=== PATIENT | male | born 1960 | race Caucasian/White ===

== ENCOUNTER → 2017-02-11 | Outpatient (CLI) | payer OTHER ==
[~2017-02-11] MED LIST: CRS10 PO; FEXO180T PO; FLUT0.0529
[2017-02-11 13:54] LABS: ALT/SGPT 36 U/L (12-78); BLOOD UREA NITROGEN 20 mg/dl (7-18); BUN/CREATININE RATIO 22.1 (10-20); CARBON DIOXIDE 30 mmol/L (21-32); CHLORIDE 106 mmol/L (98-107); CREATININE 0.91 mg/dl (0.60-1.40); GLUCOSE 107 mg/dl (70-99); POTASSIUM 4.5 mmol/L (3.5-5.1); SODIUM 142 mmol/L (136-145)
[2017-02-11 13:58] LABS: ALB/GLOB RATIO 1.1 (0.9-2); ALKALINE PHOSPHATASE 44 U/L (45-117); AST/SGOT 14 U/L (15-37); CHOLESTEROL 185 mg/dl (0-200); CHOLESTEROL/HDL RATIO 3.4; HDL CHOLESTEROL 54 mg/dl; LDL CHOLESTEROL CALCULATED 117 mg/dl; TRIGLYCERIDES 71 mg/dl (0-150); VERY LOW DENSITY LIPOPROT CALC 14 mg/dl
[2017-02-11 13:59] LABS: ESTIMATED AVERAGE GLUCOSE 117 mg/dl; HA1C FLAG Normal (Normal)
== END | disposition home or self-care (01) ==
LOC: C.LABBC 10:07
PROVIDERS: ATTEND Family Medicine
DX: Z00.00 Encounter for general adult medical examination without abnormal findings (principal)

== ENCOUNTER → 2018-04-03 | Outpatient (CLI) | payer OTHER ==
[2018-04-03 14:37] LABS: ALBUMIN 3.7 gm/dl (3.4-5.0); ALKALINE PHOSPHATASE 44 U/L (45-117); ALT/SGPT 41 U/L (12-78); AST/SGOT 16 U/L (15-37); BLOOD UREA NITROGEN 18 mg/dl (7-18); CALCIUM 8.8 mg/dl (8.5-10.1); CARBON DIOXIDE 31 mmol/L (21-32); CHOLESTEROL 202 mg/dl (0-200); CREATININE 1.01 mg/dl (0.60-1.40); GLUCOSE 103 mg/dl (70-99); LDL CHOLESTEROL CALCULATED 124 mg/dl; POTASSIUM 4.7 mmol/L (3.5-5.1); SODIUM 137 mmol/L (136-145); TOTAL PROTEIN 7.4 gm/dl (6.4-8.2)
[2018-04-04 06:04] LABS: HEMOGLOBIN A1C 5.6 % (4.5-5.6)
== END | disposition home or self-care (01) ==
LOC: C.LABBC 10:19
PROVIDERS: ATTEND Nurse Practitioner Family
DX: E78.00 Pure hypercholesterolemia, unspecified (principal); R73.9 Hyperglycemia, unspecified

== ENCOUNTER 2023-04-01 10:54 | Inpatient (IN) ==
[2023-04-01] MEDS ORDERED: SODIUM CHLORIDE 0.9% 1000ML 1,000 ML IV ONE ×2 (11:25→13:55)
--- NOTE | 2023-04-01 11:49 | Emergency Department Note ---
Impression & Plan Acute pyelonephritis, Anemia, Weakness, Hypomagnesemia ED Provider Note NAME: ELLIOTT CANDELARIO AGE: 62 SEX: M : 1960 ARRIVES VIA: Walk-In INFORMANT: Patient, ED PROVIDER(S): Elliott Mchugh DO CHIEF COMPLAINT: Postoperative fever HPI: The patient is a 62-year-old male who presented to the emergency department at the request of his primary care physician for an evaluation of postoperative fever. The patient started having symptoms over the last few days. He was noted to have low-grade fever last night. He has been having generalized weakness. He feels as though he cannot do as much activity as he previously was able to. He was recently diagnosed with bladder cancer. He did have some chemotherapy prior to the surgery that he had 3 weeks ago to remove his bladder as well as his prostate. He was feeling well until the last few days. He denies having any chest pain. He does have some exertional dyspnea but he denies having any lower extremity swelling or pain. He has had no recent trauma. He denies having any rectal bleeding or hematuria. The blood in the collection bag has been clear. ROS: See above HPI for pertinent positives & negatives. A total of 10 systems reviewed and were otherwise negative. PAST MEDICAL HISTORY: See Below PAST SURGICAL HISTORY: See Below FAMILY HISTORY: See Below SOCIAL HISTORY: See Below HOME MEDICATIONS: See Below ALLERGIES: See Below VITALS: See Below PHYSICAL EXAMINATION: GENERAL: Patient is awake alert in no acute distress patient is resting co mfortably and showing no signs of anxiety EYES: The conjunctivae are clear. The pupils are round and reactive. EARS, NOSE, MOUTH AND THROAT: The nose is without any evidence of any deformity. Mucous membranes are dry. NECK: The neck is nontender and supple. RESPIRATORY: Normal respiratory effort is noted there is no evidence of wheezing rhonchi or rales CARDIOVASCULAR: Regular rate and rhythm noted there no murmurs rubs or gallops normal S1 normal S2. GASTROINTESTINAL: The abdomen is soft and mildly distended. There is diffuse tenderness to palpation but no guarding or rigidity. The urine bag is noted in the right lower quadrant. There are surgical sites with wound glue in place. There is no drainage erythema or dehiscence noted. MUSCULOSKELETAL/EXTREMITIES: There is no evidence of gross deformity full range of motion is noted in the hips and shoulders. SKIN: There is no obvious evidence of any rash. There are no petechiae, pallor or cyanosis noted. NEUROLOGIC: Patient is awake alert and oriented x3 MEDICAL DECISION MAKING: The patient is a 62-year-old male who presented to the emergency department for an evaluation of fever and weakness. The patient initially was hypotensive. The patient was treated with IV fluids and IV antibiotics in the emergency department for presumed infection. I discussed the patient's laboratory and radiographic studies with him. He was found to have signs of urinary tract infection on urinalysis but also on CT scan of the abdomen. Imaging appears to be consistent with pyelonephritis. The patient is status post bladder surgery for bladder cancer. There does not appear to be any specific postoperative fluid collection that would make me concerned for abscess. The patient was feeling much better on reevaluation. Given his findings I discussed his condition with the on-call [facility]. They have agreed to evaluate the patient in the emergency department for further management and disposition. Triage Nursing notes reviewed. Prior medical records reviewed Vital Signs: reviewed and remarkable for initial hypotension. Differential diagnosis: Infection, dehydration, metabolic abnormality, hypo/hyperglycemia, electrolyte disturbance, anemia, hypoxia, cardiac sources, intracerebral event, toxicologic, neurologic, as well as other pathologies. ER treatment provided: See below Diagnostics interpreted by me: ECG: EKG was obtained in the emergency department. My interpretation is normal sinus rhythm at 84 bpm. There is no ectopy. There is no acute ST segment abnormalities noted. This was compared to a tracing from October 17, 2022. No changes were noted. Cardiac Monitoring: An order was placed for continuous cardiac monitoring. The monitor shows a rate of 75 bpm with sinus rhythm. Laboratory studies: As stated above and show below. Imaging studies: See below. Radiographic imaging was reviewed by myself Consultation(s): I discussed this case with Adin Cline who is on for the [facility]. They will evaluate the patient in the emergency department. Past Med/Surg History Medical History Borderline blood pressure No meds Hypercholesterolemia Kidney stones Hx, passed without intervention Seasonal allergies Urothelial carcinoma of bladder Surgical History H/O transurethral resection of bladder tumor (TURBT) TURBT (Transurethral Resection of the Bladder Tumor) (medium)- Erlin Rg MD 2021 History of anesthesia problem ACL surgery - Slow to wake, required overnight stay- discharged next day without issue Shoulder surgery - he had no problems History of arthroscopy of left shoulder 2015 Hx of arthroscopic knee surgery right knee acl 1992 Hx of colonoscopy 2014? Port-A-Cath in place (12/04/22) Insertion Access Port Left Subclavian with Fluoroscopy(Left) - Francisco Basilio DO Family History Father Myocardial infarction Hypertension Heart disease Aunt Diabetes Other Cancer Denies family history of Colon cancer Ovarian cancer Prostate cancer Breast cancer Social History Smoking Status: Never smoker Tobacco Type: Cigars and Smokeless Tobacco (Dip or Chew) Second Hand Exposure: No; Do You Dip or Chew Tobacco: Yes (hx-quit); Hx Alcohol Use: Yes Alcohol type: beer Alcohol Intake Frequency: 4 or More x per/Week Alcohol Intake Frequency Comment: 2 per day Hx Substance Use: No Preferred Language: Divehi Communication Ability: Effective Visual Impairment: Limited Hearing Ability: Normal 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 Final Required: No Beliefs That Will Affect Care: None marital status: Current Living Situation: Spouse current occupational status: 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 How many Children do You have: 1 Feels Safe at Home: Yes Childhood Exposure to Second-Hand Smoke: No Diet: regular during the past year weight has: decreased > 10 lbs Dental Care, Regularly: Yes Physical Activity Frequency: 3-4 Times per Week Seatbelt Use: always Sunscreen Use: Yes Assistive Devices: None Allergies Allergies Allergy/AdvReac Type Severity Reaction Status Date / Time No Known Allergies Allergy Verified 01/16/23 13:28 Home Meds Home Medications Medication Instructions Recorded Confirmed rosuvastatin 20 mg tablet 20 mg PO QAM 10/23/22 03/20/23 fexofenadine-pseudoephedrine ER 1 tab PO QAM PRN Nasal Congestion 12/04/22 03/20/23 180 mg-240 mg tablet,ext.release 24 hr (Nicolle-D 24 Hour) apixaban 2.5 mg tablet 2.5 mg PO BID 03/20/23 03/20/23 docusate sodium 100 mg capsule 100 mg PO BID 03/20/23 03/20/23 losartan 25 mg tablet 25 mg PO DAILY 03/20/23 polyethylene glycol 3350 17 17 g PO DAILY 03/20/23 03/20/23 gram/dose oral powder (Miralax) tramadol 50 mg tablet 50 mg PO Q6H PRN 03/20/23 03/20/23 Previous Rx's Medication Instructions Recorded olanzapine 2.5 mg tablet 2.5 mg PO DAILY #30 tabs 01/01/23 ondansetron 8 mg disintegrating 8 mg PO DAILY PRN nausea and 01/01/23 tablet vomiting #60 tabs prochlorperazine maleate 5 mg 5 mg PO Q6H PRN nausea and 01/01/23 tablet vomiting #30 tabs hydrochlorothiazide 25 mg tablet 25 mg PO DAILY #90 tabs 03/05/23 Results & Data (ED) Vital Signs Vital Signs - 24 hr 04/01/23 11:09 04/01/23 12:54 04/01/23 12:54 Temperature 37.2 C Temperature Source Temporal Artery Scan Pulse Rate 104 H Pulse Rate [Apical] 76 Pulse Rhythm [Apical] Regular Respiratory Rate 18 18 Respiratory Effort / Characteristics Non-Labored Spontaneous Non-Labored Spontaneous Respiratory Depth Normal Normal Respiratory Pattern Regular Regular Blood Pressure 99/55 L Blood Pressure [Right Arm] 116/62 Blood Pressure Mean 69 Blood Pressure Mean [Right Arm] 80 Blood Pressure Position [Right Arm] Lying Pulse Oximetry 96 98 98 Oxygen Delivery Method Room Air Room Air Room Air Sepsis Recent Fever Within 48 Hours No Sepsis New/Unexplained Change in Mental Status N/A Sepsis Action Taken by Nursing No Action Required 04/01/23 12:30 04/01/23 13:29 Temperature 36.4 C Temperature Source Oral Pulse Rate 84 Pulse Rate [Apical] 75 Pulse Rhythm [Apical] Regular Respiratory Rate 18 Respiratory Effort / Characteristics Non-Labored Spontaneous Respiratory Depth Normal Respiratory Pattern Regular Blood Pressure Blood Pressure [Right Arm] 133/64 Blood Pressure Mean Blood Pressure Mean [Right Arm] 87 Blood Pressure Position [Right Arm] Lying Pulse Oximetry 99 Oxygen Delivery Method Room Air Sepsis Recent Fever Within 48 Hours Sepsis New/Unexplained Change in Mental Status Sepsis Action Taken by [facility] Medications Current Medication List: was personally reviewed by me Laboratory Data Attestation: I reviewed the patient's lab results. 04/01/23 12:09 04/01/23 12:09 Lab Results 04/01/23 04/01/23 04/01/23 Range/Units 12:09 12:09 12:09 WBC 9.58 (4.8-10.8) K/ul RBC 2.82 L (4.70-6.10) M/uL Hgb 8.7 L (14.0-18.0) g/dl POC Hgb (14.0-18.0) g/dl Hct 24.9 L (42.0-52.0) % POC Hct (42-52) % MCV 88.3 (80.0-100.0) fL MCH 30.9 (25.0-34.0) pg MCHC 34.9 (32.0-36.0) g/dL RDW Std Deviation 41.0 (36.4-46.3) fL RDW Coeff of Mara 12.6 (11.5-14.5) % Plt Count 137 (130-400) K/uL MPV 9.4 (9.4-12.4) fL Immature Gran % (Auto) 0.5 % Neut % (Auto) 81.6 % Lymph % (Auto) 10.1 % Caswell % (Auto) 5.7 % Eos % (Auto) 1.9 % Baso % (Auto) 0.2 % Neut # (Auto) 7.81 H (1.40-6.50) K/uL Lymph # (Auto) 0.97 L (1.2-3.4) K/uL Caswell # (Auto) 0.55 (0.11-0.59) K/uL Eos # (Auto) 0.18 (0-0.50) K/uL Baso # (Auto) 0.02 (0-0.2) K/uL Immature Gran # (Auto) 0.05 (0.01-0.20) K/uL PT (9.0-12.0) Seconds INR (0.9-1.1) APTT (21.0-31.0) Seconds PTT Ratio VBG pH (7.36-7.41) VBG pCO2 (38-50) mmHg VBG pO2 mmHg VBG HCO3 mmol/L VBG O2 Saturation % VBG Base Excess mEq/L POC Sodium (135-144) mmol/L Sodium 131 L (136-145) mmol/L POC Potassium (3.3-5.0) mmol/L Potassium 3.1 L (3.5-5.1) mmol/L POC Chloride (101-112) mmol/L Chloride 91 L (98-107) mmol/L Carbon Dioxide 33 H (21-32) mmol/L POC Total CO2 (24-31) mmol/L Anion Gap 7 (3-11) POC Anion Gap (16-25) mmol/L POC BUN (7-18) mg/dl BUN 26 H (6-23) mg/dl Creatinine 1.13 (0.6-1.4) mg/dl POC Creatinine (0.6-1.3) mg/dl Est Cr Clr Drug Dosing 62.5 ml/min Est GFR ( Amer) 79.7 ml/min Est GFR (Non-Af Amer) 68.8 ml/min BUN/Creatinine Ratio 23.0 H (10-20) Glucose 120 H (70-99(Fasting)) mg/dl POC Glucose (other) (70-99) mg/dl Lactate 0.9 (0.4-2.0) mmol/L Calcium 8.8 (8.6-10.3) mg/dl POC Ioniz Calcium Sariah (1.12-1.32) mmol/l Magnesium 1.5 L (1.7-2.4) mg/dl Total Bilirubin 0.2 (0.2-1.0) mg/dl Direct Bilirubin 0.1 (0-0.2) mg/dl AST 14 (13-39) U/L ALT 14 (7-52) U/L Alkaline Phosphatase 55 (34-104) U/L Troponin I High Sens 15.3 (0-20) pg/ml C-Reactive Protein 19.50 H (0-0.5) mg/dl Total Protein 6.1 (6.0-8.3) gm/dl Albumin 3.1 L (3.4-5.0) gm/dl Procalcitonin (0-0.5) ng/ml Urine Color Urine Appearance (Clear) Urine pH (4.5-7.5) Ur Specific [place] (1.000-1.030) Urine Protein (Negative) Urine Glucose (UA) (Negative) Urine Ketones (Negative) Urine Blood (Negative) Urine Nitrite (Negative) Urine Bilirubin (Negative) Urine Urobilinogen (Negative) Ur Leukocyte Esterase (Negative) Urine WBC (Auto) (0-5) /hpf Urine RBC (Auto) (0-4) /hpf U Hyaline Cast (Auto) (0-5) /lpf U Epithel Cells (Auto) (0-5) /lpf Urine Bacteria (Auto) (Negative) SARS-CoV-2 (PCR) (Negative) Influenza Type A (PCR) (Neg) Influenza Type B (PCR) (Neg) RSV (RT-PCR) (Neg) 04/01/23 04/01/23 04/01/23 Range/Units 12:09 12:09 12:09 WBC (4.8-10.8) K/ul RBC (4.70-6.10) M/uL Hgb (14.0-18.0) g/dl POC Hgb (14.0-18.0) g/dl Hct (42.0-52.0) % POC Hct (42-52) % MCV (80.0-100.0) fL MCH (25.0-34.0) pg MCHC (32.0-36.0) g/dL RDW Std Deviation (36.4-46.3) fL RDW Coeff of Mara (11.5-14.5) % Plt Count (130-400) K/uL MPV (9.4-12.4) fL Immature Gran % (Auto) % Neut % (Auto) % Lymph % (Auto) % Caswell % (Auto) % Eos % (Auto) % Baso % (Auto) % Neut # (Auto) (1.40-6.50) K/uL Lymph # (Auto) (1.2-3.4) K/uL Caswell # (Auto) (0.11-0.59) K/uL Eos # (Auto) (0-0.50) K/uL Baso # (Auto) (0-0.2) K/uL Immature Gran # (Auto) (0.01-0.20) K/uL PT 11.6 (9.0-12.0) Seconds INR 1.1 (0.9-1.1) APTT 30.5 (21.0-31.0) Seconds PTT Ratio 1.1 VBG pH 7.49 H (7.36-7.41) VBG pCO2 50 (38-50) mmHg VBG pO2 32 mmHg VBG HCO3 38 mmol/L VBG O2 Saturation < 60.0 % VBG Base Excess 12.7 mEq/L POC Sodium (135-144) mmol/L Sodium (136-145) mmol/L POC Potassium (3.3-5.0) mmol/L Potassium (3.5-5.1) mmol/L POC Chloride (101-112) mmol/L Chloride (98-107) mmol/L Carbon Dioxide (21-32) mmol/L POC Total CO2 (24-31) mmol/L Anion Gap (3-11) POC Anion Gap (16-25) mmol/L POC BUN (7-18) mg/dl BUN (6-23) mg/dl Creatinine (0.6-1.4) mg/dl POC Creatinine (0.6-1.3) mg/dl Est Cr Clr Drug Dosing ml/min Est GFR ( Amer) ml/min Est GFR (Non-Af Amer) ml/min BUN/Creatinine Ratio (10-20) Glucose (70-99(Fasting)) mg/dl POC Glucose (other) (70-99) mg/dl Lactate (0.4-2.0) mmol/L Calcium (8.6-10.3) mg/dl POC Ioniz Calcium Sariah (1.12-1.32) mmol/l Magnesium (1.7-2.4) mg/dl Total Bilirubin (0.2-1.0) mg/dl Direct Bilirubin (0-0.2) mg/dl AST (13-39) U/L ALT (7-52) U/L Alkaline Phosphatase (34-104) U/L Troponin I High Sens (0-20) pg/ml C-Reactive Protein (0-0.5) mg/dl Total Protein (6.0-8.3) gm/dl Albumin (3.4-5.0) gm/dl Procalcitonin 0.20 (0-0.5) ng/ml Urine Color Urine Appearance (Clear) Urine pH (4.5-7.5) Ur Specific [place] (1.000-1.030) Urine Protein (Negative) Urine Glucose (UA) (Negative) Urine Ketones (Negative) Urine Blood (Negative) Urine Nitrite (Negative) Urine Bilirubin (Negative) Urine Urobilinogen (Negative) Ur Leukocyte Esterase (Negative) Urine WBC (Auto) (0-5) /hpf Urine RBC (Auto) (0-4) /hpf U Hyaline Cast (Auto) (0-5) /lpf U Epithel Cells (Auto) (0-5) /lpf Urine Bacteria (Auto) (Negative) SARS-CoV-2 (PCR) (Negative) Influenza Type A (PCR) (Neg) Influenza Type B (PCR) (Neg) RSV (RT-PCR) (Neg) 04/01/23 04/01/23 04/01/23 Range/Units 12:18 12:20 12:50 WBC (4.8-10.8) K/ul RBC (4.70-6.10) M/uL Hgb (14.0-18.0) g/dl POC Hgb 8.2 L (14.0-18.0) g/dl Hct (42.0-52.0) % POC Hct 24 L (42-52) % MCV (80.0-100.0) fL MCH (25.0-34.0) pg MCHC (32.0-36.0) g/dL RDW Std Deviation (36.4-46.3) fL RDW Coeff of Mara (11.5-14.5) % Plt Count (130-400) K/uL MPV (9.4-12.4) fL Immature Gran % (Auto) % Neut % (Auto) % Lymph % (Auto) % Caswell % (Auto) % Eos % (Auto) % Baso % (Auto) % Neut # (Auto) (1.40-6.50) K/uL Lymph # (Auto) (1.2-3.4) K/uL Caswell # (Auto) (0.11-0.59) K/uL Eos # (Auto) (0-0.50) K/uL Baso # (Auto) (0-0.2) K/uL Immature Gran # (Auto) (0.01-0.20) K/uL PT (9.0-12.0) Seconds INR (0.9-1.1) APTT (21.0-31.0) Seconds PTT Ratio VBG pH (7.36-7.41) VBG pCO2 (38-50) mmHg VBG pO2 mmHg VBG HCO3 mmol/L VBG O2 Saturation % VBG Base Excess mEq/L POC Sodium 131 L (135-144) mmol/L Sodium (136-145) mmol/L POC Potassium 3.0 L (3.3-5.0) mmol/L Potassium (3.5-5.1) mmol/L POC Chloride 89 L (101-112) mmol/L Chloride (98-107) mmol/L Carbon Dioxide (21-32) mmol/L POC Total CO2 29 (24-31) mmol/L Anion Gap (3-11) POC Anion Gap 17.0 (16-25) mmol/L POC BUN 22 H (7-18) mg/dl BUN (6-23) mg/dl Creatinine (0.6-1.4) mg/dl POC Creatinine 1.3 (0.6-1.3) mg/dl Est Cr Clr Drug Dosing ml/min Est GFR ( Amer) ml/min Est GFR (Non-Af Amer) ml/min BUN/Creatinine Ratio (10-20) Glucose (70-99(Fasting)) mg/dl POC Glucose (other) 124 H (70-99) mg/dl Lactate (0.4-2.0) mmol/L Calcium (8.6-10.3) mg/dl POC Ioniz Calcium Sariah 1.17 (1.12-1.32) mmol/l Magnesium (1.7-2.4) mg/dl Total Bilirubin (0.2-1.0) mg/dl Direct Bilirubin (0-0.2) mg/dl AST (13-39) U/L ALT (7-52) U/L Alkaline Phosphatase (34-104) U/L Troponin I High Sens (0-20) pg/ml C-Reactive Protein (0-0.5) mg/dl Total Protein (6.0-8.3) gm/dl Albumin (3.4-5.0) gm/dl Procalcitonin (0-0.5) ng/ml Urine Color Yellow Urine Appearance Cloudy A (Clear) Urine pH 6.5 (4.5-7.5) Ur Specific [place] 1.018 (1.000-1.030) Urine Protein 2+ H (Negative) Urine Glucose (UA) Negative (Negative) Urine Ketones Negative (Negative) Urine Blood 3+ H (Negative) Urine Nitrite Positive A (Negative) Urine Bilirubin Negative (Negative) Urine Urobilinogen Negative (Negative) Ur Leukocyte Esterase 3+ H (Negative) Urine WBC (Auto) >30 H (0-5) /hpf Urine RBC (Auto) >30 H (0-4) /hpf U Hyaline Cast (Auto) 1-5 (0-5) /lpf U Epithel Cells (Auto) 10-20 H (0-5) /lpf Urine Bacteria (Auto) 4+ H (Negative) SARS-CoV-2 (PCR) NEGATIVE (Negative) Influenza Type A (PCR) Negative (Neg) Influenza Type B (PCR) Negative (Neg) RSV (RT-PCR) Negative (Neg) Administered Medications Discontinued Medications Sodium Chloride (Nss 1000ml) 1,000 mls @ 999 mls/hr IV .Q1H1M ONE Stop: 04/01/23 12:25 Last Infusion: 04/01/23 14:28 Dose: 0 mls/hr Documented By: Admin: 04/01/23 12:47 Dose: 999 mls/hr Documented By: ASHA Piperacillin Sod/Tazobactam Sod (Zosyn) 4.5 gm in 120 mls @ 240 mls/hr IV NOW ONE Stop: 04/01/23 14:20 Last Infusion: 04/01/23 15:29 Dose: 0 mls/hr Documented By: Admin: 04/01/23 14:21 Dose: 240 mls/hr Documented By: ASHA Magnesium Sulfate/Dextrose (Magnesium Sulfate / D5w) 1 gm in 100 mls @ 100 mls/hr IV NOW STA Stop: 04/01/23 14:53 Last Infusion: 04/01/23 15:29 Dose: 0 mls/hr Documented By: Admin: 04/01/23 14:21 Dose: 100 mls/hr Documented By: ASHA Sodium Chloride (Nss 1000ml) 1,000 mls @ 999 mls/hr IV .Q1H1M ONE Stop: 04/01/23 14:55 Last Admin: 04/01/23 15:29 Dose: Not Given Documented By: ASHA Ioversol (Optiray 320 100ml) 88 ml IV ONCE ONE Stop: 04/01/23 12:45 Last Admin: 04/01/23 12:38 Dose: 88 ml Documented By: LIAM Imaging Data Attestation: I personally reviewed and interpreted this imaging study as follows: My Impression: 1 view chest x-ray was obtained in the emergency department. My interpretation is no free air, no definite infiltrate, final report below. Radiologist's Impression: Chest X-Ray 04/01/23 11:25 XR chest 1V portable CLINICAL HISTORY: Sepsis TECHNIQUE: Single frontal radiograph of the chest was obtained. Comparison: Comparison is made to chest radiograph 12/04/2019 FINDINGS: A port catheter is seen. The cardiomediastinal silhouette is normal. The lungs are clear. No evidence of pleural effusion or pneumothorax. IMPRESSION: No acute abnormalities and in particular no radiographic evidence of pneumonia. ACT 112: Negative or not required by law. Electronically signed by: Moises De Souza M.D. 04/01/2023 1:02 PM Abdomen/Pelvis CT 04/01/23 11:[address] WITH IV CONTRAST CT DOSE: 682.10 mGy.cm HISTORY: Acute fever in patient with recent abdominal surgery post op fever TECHNIQUE: Multiaxial CT images of the abdomen and pelvis were performed following the IV administration of 80 cc of Optiray, A dose lowering technique was utilized adhering to the principles of ALARA. COMPARISON STUDY: CT chest, abdomen and pelvis 03/08/2023 FINDINGS: Coronary artery calcifications. Clear lung bases. Subcutaneous emphysema of the anterior abdominal and left lateral chest wall. Unremarkable spleen, contracted gallbladder and adrenal glands. 10 mm cystic lesion of the pancreatic tail again noted suggestive of a probable sidebranch IPMN. Scattered parenchymal calcifications of the pancreas suggestive of chronic pancreatitis. Subcentimeter hepatic cysts again noted. Patency of the hepatic and portal veins. Bilateral nephrolithiasis redemonstrated with catheter measuring up to 1.1 cm and the left. Catheter in the right measure up to approximately 3 mm. Mild nonspecific bilateral perinephric stranding. Mild urothelial thickening of the collecting systems and ureters. Bilateral ureteral stents are in place. Postoperative changes of recent cystectomy with right lower quadrant diverting urostomy. The ureteral stents extend external to the patient. Inflammatory stranding with trace free fluid within the pelvis. Left iliac fluid collection measures 3.7 cm. Small fat filled left inguinal hernia. Atherosclerosis of the aorta without aneurysm. Prostatectomy. Colonic diverticulosis. Subcentimeter lymph nodes in the pelvic mesentery. Anastomotic sutures are noted within small bowel from the pelvis. Small zeinab umbilical fat filled hernia. Mild herniation of fat within the right lower quadrant ostomy site. No acute fracture or destructive bone lesion. Grade 1 anterolisthesis L5 on S1 secondary to chronic pars defects. IMPRESSION: 1. Postoperative changes of recent cystoprostatectomy with right lower quadrant diverting urostomy. 2. Bilateral ureteral stents are in place. There is mild right-sided pelvocaliectasis with urothelial thickening and enhancement of the bilateral renal collecting systems and ureters. Correlate with urinalysis to exclude infection. 3. Left greater than right nephrolithiasis. No ureteral calculi identified. 4. Expected postoperative trace ascites with subcutaneous emphysema. 5. Simple appearing left iliac fluid collection measuring 3.7 cm suggestive of a probable small seroma or developing lymphocele. 6. Additional findings as above. ACT 112: Negative or not required by law. The above report was generated using voice recognition software. It may contain grammatical, syntax or spelling errors. Electronically signed by: Rd Gonzalez M.D. 04/01/2023 1:33 PM Discharge Plan Visit Data Chief Complaint: Dizziness Stated Complaint: EXTREME WEAKNESS;CHILLS DIZZINES;FEVER ED Provider: Elliott Mchugh Discharge Problem: Acute pyelonephritis, Anemia, Weakness, Hypomagnesemia Patient Disposition: Being Evaluated by Hospitalist Forms Stand Alone Forms: My [facility] Prescriptions Prescriptions: No Action olanzapine 2.5 mg tablet 2.5 mg PO DAILY Qty: 30 2RF Rx Instructions: One tab daily for four days on day of chemo for nausea ondansetron 8 mg tablet,disintegrating 8 mg PO DAILY PRN (Reason: nausea and vomiting) Qty: 60 0RF prochlorperazine maleate 5 mg tablet 5 mg PO Q6H PRN (Reason: nausea and vomiting) Qty: 30 0RF hydrochlorothiazide 25 mg tablet 25 mg PO DAILY Qty: 90 1RF losartan 25 mg tablet 25 mg PO DAILY docusate sodium 100 mg capsule 100 mg PO BID polyethylene glycol 3350 [Miralax] 17 gram/dose powder 17 g PO DAILY apixaban 2.5 mg tablet 2.5 mg PO BID tramadol 50 mg tablet 50 mg PO Q6H PRN rosuvastatin 20 mg tablet 20 mg PO QAM fexofenadine-pseudoephedrine [Nicolle-D 24 Hour] 180-240 mg Tablet Extended Release 24 Hr 1 tab PO QAM PRN (Reason: Nasal Congestion) Referrals Referrals: Temo Aleman III, CRNP [Primary Care Provider] -
[2023-04-01 12:33] LABS: iSTAT Creatinine 1.3 mg/dl (0.6-1.3); iSTAT Hemoglobin 8.2 g/dl (14.0-18.0); iSTAT Ionized Calcium 1.17 mmol/l (1.12-1.32)
[2023-04-01 12:34] LABS: Base Excess VBG 12.7 mEq/L; HCO3 VBG 38 mmol/L; Oxygen Saturation VBG < 60.0 %; PCO2 VBG 50 mmHg (38-50); PO2 VBG 32 mmHg; pH VBG 7.49 (7.36-7.41)
[2023-04-01 12:40] LABS: Basophils # (auto) 0.02 K/uL (0-0.2); Basophils % (auto) 0.2 %; Eosinophils # (auto) 0.18 K/uL (0-0.50); Eosinophils % (auto) 1.9 %; Hematocrit (blood only) 24.9 % (42.0-52.0); Hemoglobin 8.7 g/dl (14.0-18.0); Immature Granulocytes # (auto) 0.05 K/uL (0.01-0.20); Immature Granulocytes % (auto) 0.5 %; Lymphocytes # (auto) 0.97 K/uL (1.2-3.4); Lymphocytes % (auto) 10.1 %; Mean Corpuscular Hemoglobin 30.9 pg (25.0-34.0); Mean Corpuscular Hgb Conc 34.9 g/dL (32.0-36.0); Mean Corpuscular Volume 88.3 fL (80.0-100.0); Mean Platelet Volume 9.4 fL (9.4-12.4); Monocytes # (auto) 0.55 K/uL (0.11-0.59); Monocytes % (auto) 5.7 %; Neutrophils # (auto) 7.81 K/uL (1.40-6.50); Neutrophils % (auto) 81.6 %; Platelet Count 137 K/uL (130-400); RDW Coefficient of Variation 12.6 % (11.5-14.5); Red Blood Count 2.82 M/uL (4.70-6.10); White Blood Count 9.58 K/ul (4.8-10.8)
[2023-04-01] MEDS ORDERED: OPTIRAY 320 100ml IV ONE (12:44)
[2023-04-01 13:00] LABS: Albumin Level 3.1 gm/dl (3.4-5.0); Bilirubin Direct 0.1 mg/dl (0-0.2); Bilirubin,Total 0.2 mg/dl (0.2-1.0); C Reactive Protein 19.5 mg/dl (0-0.5); Calcium 8.8 mg/dl (8.6-10.3); Creatinine Clr Calc Pharmacy 62.5 ml/min; Est GFR (African American) 79.7 ml/min; Est GFR (Non-African American) 68.8 ml/min; Magnesium 1.5 mg/dl (1.7-2.4); Potassium 3.1 mmol/L (3.5-5.1); Total Protein 6.1 gm/dl (6.0-8.3)
--- NOTE | 2023-04-01 13:04 | XRay Report ---
XR chest 1V portable CLINICAL HISTORY: Sepsis TECHNIQUE: Single frontal radiograph of the chest was obtained. Comparison: Comparison is made to chest radiograph 12/04/2019 FINDINGS: A port catheter is seen. The cardiomediastinal silhouette is normal. The lungs are clear. No evidence of pleural effusion or pneumothorax. IMPRESSION: No acute abnormalities and in particular no radiographic evidence of pneumonia. ACT 112: Negative or not required by law. Electronically signed by: Moises De Souza M.D. 04/01/2023 1:02 PM
[2023-04-01 13:06] LABS: Troponin I High Sensitivity 15.3 pg/ml (0-20)
[2023-04-01 13:10] LABS: INR 1.1 (0.9-1.1); Partial Thromboplastin Ratio 1.1; Partial Thromboplastin Time 30.5 Seconds (21.0-31.0); Prothrombin Time 11.6 Seconds (9.0-12.0)
[2023-04-01 13:12] LABS: Appearance Urine Cloudy (Clear); Bacteria Urine Automated 4+ (Negative); Bilirubin Urine Negative (Negative); Blood Urine 3+ (Negative); Color Urine Yellow; Glucose Urine UA Negative (Negative); Ketones Urine Negative (Negative); Leukocyte Esterase Urine 3+ (Negative); Nitrite Urine Positive (Negative); Protein Urine 2+ (Negative); RBC Urine Automated >30 /hpf (0-4); Specific Gravity Urine 1.018 (1.000-1.030); Urobilinogen Urine Negative (Negative); WBC Urine Automated >30 /hpf (0-5); pH Urine 6.5 (4.5-7.5)
[2023-04-01 13:26] LABS: Influenza A virus by PCR Negative (Neg); Influenza B virus by PCR Negative (Neg); RSV by PCR Negative (Neg); SARS CoV2 RNA(COVID-19) Ceph NEGATIVE (Negative)
--- NOTE | 2023-04-01 13:35 | CT Scan Report ---
ABDOMEN AND PELVIS CT WITH IV CONTRAST CT DOSE: 682.10 mGy.cm HISTORY: Acute fever in patient with recent abdominal surgery post op fever TECHNIQUE: Multiaxial CT images of the abdomen and pelvis were performed following the IV administrat ion of 80 cc of Optiray, A dose lowering technique was utilized adhering to the principles of ALARA. COMPARISON STUDY: CT chest, abdomen and pelvis 03/08/2023 FINDINGS: Coronary artery calcifications. Clear lung bases. Subcutaneous emphysema of the anterior ab dominal and left lateral chest wall. Unremarkable spleen, contracted gallbladder and adrenal glands. 10 mm cystic lesion of the pancreatic tail again noted suggestive of a probable sidebranch IPMN. Scat tered parenchymal calcifications of the pancreas suggestive of chronic pancreatitis. Subcentimeter he patic cysts again noted. Patency of the hepatic and portal veins. Bilateral nephrolithiasis redemonstrated with catheter measuring up to 1.1 cm and the left. Catheter in the right measure up to approximately 3 mm. Mild nonspecific bilateral perinephric stranding. Mild urothelial thickening of the collecting systems and ureters. Bilateral ureteral stents are in place. Postoperative changes of recent cystectomy with right lower quadrant diverting urostomy. The uretera l stents extend external to the patient. Inflammatory stranding with trace free fluid within the pelv is. Left iliac fluid collection measures 3.7 cm. Small fat filled left inguinal hernia. Atheroscleros is of the aorta without aneurysm. Prostatectomy. Colonic diverticulosis. Subcentimeter lymph nodes in the pelvic mesentery. Anastomotic sutures are no rudy within small bowel from the pelvis. Small periumbilical fat filled hernia. Mild herniation of fat within the right lower quadrant ostomy site. No acute fracture or destructive bone lesion. Grade 1 a nterolisthesis L5 on S1 secondary to chronic pars defects. IMPRESSION: 1. Postoperative changes of recent cystoprostatectomy with right lower quadrant diverting urostomy. 2. Bilateral ureteral stents are in place. There is mild right-sided pelvocaliectasis with urothelial thickening and enhancement of the bilateral renal collecting systems and ureters. Correlate with uri nalysis to exclude infection. 3. Left greater than right nephrolithiasis. No ureteral calculi identified. 4. Expected postoperative trace ascites with subcutaneous emphysema. 5. Simple appearing left iliac fluid collection measuring 3.7 cm suggestive of a probable small serom a or developing lymphocele. 6. Additional findings as above. ACT 112: Negative or not required by law. The above report was generated using voice recognition software. It may contain grammatical, syntax o r spelling errors. Electronically signed by: Rd Gonzalez M.D. 04/01/2023 1:33 PM
[2023-04-01] MEDS ORDERED: PIPERACILLIN/TAZOBACTAM 4.5 GM/120 ML BAG IV ONE (13:51)
[2023-04-01] MEDS ORDERED: MAGNESIUM SULFATE / D5W 1 GM/100 ML BAG IV STA (13:54)
[2023-04-01] MEDS ORDERED: MAGNESIUM SULFATE / D5W 1 GM/100 ML BAG IV ONE (15:14)
--- NOTE | 2023-04-01 15:14 | History & Physical Report ---
Date of Service April 01, 2023 Assessment & Plan (1) Acute pyelonephritis: Plan: Attending: Dr. Phillips Impression: This is a 62-year-old male that presents with fatigue, fever, chills. He recently had bladder and prostate removal at [facility] 3 weeks ago. He has been home for 2 weeks. He has noticed over the last 2 days that he has had increased fever with a Tmax of 102 F. He also had chills but no rigors. He has increased fatigue. He has no hematuria. He does have a urostomy and no blood in the ostomy bag. Patient does continue to have some drainage from his penis which does not have any blood or evidence of pus. No CVA tenderness. No significant pain to palpation of the abdomen. Patient meets criteria for admission for IV antibiotics for pyelonephritis with recent surgery at [facility]. Recommendations: Pyelonephritis: * Will admit the patient for IV antibiotics. IV Zosyn has been initiated in the ED and will continue with this during this hospital stay. Blood cultures are collected and are pending * Patient does have elevated CRP but no elevation of white count * Currently afebrile and hemodynamically stable * Will consult ostomy nurse for assistance with ostomy bag management * Check repeat labs in the morning and monitor on telemetry (2) Anemia: Plan: * Currently hemoglobin of 8.7 g/Narciso * Patient reports that he did have a hemoglobin approximately 6 postoperatively. Hemoglobin has been stable * No evidence of acute bleeding at this time * Will continue to monitor and avoid transfusion if necessary (3) Weakness: Plan: * Most likely multifactorial to acute illness, recent surgery, recent chemotherapy, and recovery from recent hospital stay * Will treat pyelonephritis as above * At this time patient has no evidence of acute renal failure. We will however hydrate him and continue to monitor strict ins and outs * PT/OT evaluations will be requested for functional status (4) Hypomagnesemia: Plan: * Magnesium and potassium were low on admission * Initial magnesium was 1.5. Patient did receive 1 g of magnesium sulfate in the emergency department. A second gram was ordered and is being administered * Check repeat magnesium level in the morning (5) Type 2 diabetes mellitus: Plan: * Patient told that he had history of prediabetes and that he had a jump in hemoglobin A1c from 5.9 to 6.6 in December * Patient deferred treatment with metformin at that time * Will check repeat hemoglobin A1c with a.m. labs * Due to acute illness and recent chemotherapy, will initiate NovoLog sliding scale insulin with no basal insulin requirements at this time * Diabetic diet (6) Hypertension: Plan: * Patient is hemodynamic is able. We will continue with patient's home home ant i hypertensives * Monitor on telemetry secondary to pyelonephritis (7) Urothelial carcinoma of bladder: Plan: * Underwent surgery [address] Janelle Broderick at [facility] * Has been home for 2 weeks * No evidence of abscess or air/fluid collection that is concerning on CT abdomen pelvis today * Last course of chemotherapy administered 01/30/2023 under the direction of Dr. Binu Sprague * No indication of oncology consult at this time but we will alert Dr. Sprague the patient has been admitted as he reports that he has a follow-up ap pointment on Saturday of this week * Diverting urostomy is in place. Will consult ostomy nurse to help with management (8) Hypercholesterolemia: Plan: * Continue home medications (9) Hypokalemia: Plan: * Patient found to have low magnesium level 1.5 on admission. He is receiving a total of 2 g of magnesium sulfate in the emergency department * Patient also received 1 L of normal saline as a bolus * Will hold on second liter bolus and start patient on normal saline with 20 mEq of potassium chloride per liter at 125 mL/h * Will check repeat BMP at 1800 tonight as well as daily labs Plan DVT prophylaxis: No history of prior thromboembolic event but patient does have active malignancy and recently had complicated surgery at [facility]. We will continue apixaban 2.5 mg p.o. twice daily until advised to stop by patient's primary oncologist Dr. Ley. Patient is aware that I am a physician reading assistant and that Dr. Phillips will be his attending physician during the his emergency department day. Patient also aware that he may receive a another physician tomorrow to be as attending for the remainder of his hospital stay. Patient request that a copy of the H&P be sent to Dr. Sprague of oncology, Dr. Broderick at [facility], and to ARTEM Monae (PCP) History of Present Illness Chief Complaint: Urinary tract infection status post bladder surgery for malignancy 3 weeks ago Primary Care Provider: Temo Aleman III, CRNP Attending: Dr. Phillips This is a very pleasant 62-year-old male. Past medical history includes recent discovery of bladder cancer, hypertension, seasonal allergies, hyperlipidemia, elevated blood glucose levels. Patient recently given a new diagnosis of diabetes mellitus on 01/16/2023 secondary to increase in hemoglobin A1c from 5.9 to 6.6%. It was recommended at that time the patient started on metformin. With discussion with other providers, the patient elected to follow hemoglobin A1c rather than start treatment for diabetes mellitus. He has a recent history he of urethral carcinoma of the bladder and underwent surgery at [facility] with Dr. Janelle Broderick approximately 3 weeks ago. He was that he had bladder, prostate, gallbladder removal with a lower right quadrant diverting urostomy. He has been home for approximately 2 weeks without difficulty. He has a diverting colostomy with good drainage of urine. Patient also has some drainage from his penis into his depends which is clear with no evidence of bleeding or clots. He has noticed some mucus occasionally in his ostomy bag and with the discharge from his penis with no evidence of pus. Patient has no abdominal or suprapubic pain. He has no change in mentation. He has no other acute complaints. Over the last couple of days, the patient has had increased fatigue. He also developed a fever with a Tmax of 102 F last night. He took 1 g of Tylenol and had improvement to 99 F. He then took another gram prior to bedtime and has not had any further fever since that time. Patient did report that he had chills as well. No rigors. Blood pressure has been normal. Patient states that he normally runs in the 130s systolically. CT imaging today shows no evidence of gas or fluid collection suggesting a bscess. Patient does have expected postoperative trace ascites with subcutaneous emphysema. This is minimal. Patient also has simple appearing left iliac fluid collection measuring 3.7 cm probable small seroma or developing lymphocele. Bilateral ureteral stents are in place. Patient does have mild right-sided pelvocaliectasis with urethral thickening and enhancement of the bilateral renal collecting system and ureters. Chest ray shows no evidence of pneumonia, infiltrates, consolidation, atelectasis. Laboratory results include: * Hemoglobin of 8.7 which is up from approximately 6 postsurgically. No acute blood loss reported by the patient. * No evidence of leukocytosis although patient did have a slightly elevated neutrophil count of 7.81 K/UL * Sodium 131 with a baseline of approximately 137 * Potassium 3.1 with a baseline of 4.1 * Magnesium of 1.5. Patient received 1 g of magnesium sulfate in the ER. A second gram has been ordered * C-reactive protein is 19.5 * Albumin is 3.1 Urinalysis results in: * Cloudy urine with 2+ protein, 3+ blood, positive nitrates, positive esterase, greater than 30 white blood cells, greater than 30 red blood cells, negative for elevated hyaline casts, 4+ urine bacteria. COVID results are negative as well as influenza A, influenza B, RSV Patient has no other acute complaints at this time. [facility] has been accessed for administration of fluids and IV antibiotics. Patient has never smoked cigarettes but has had occasional cigars and smokeless tobacco in the past. Patient recently retired. 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 CODE STATUS discussion: Patient does desire to be a level 1 full resuscitation but specifically states that he would not want to be on mechanical life support for a prolonged period of time. He understands that his and other family members would help to determine course of action should he be incapacitated as is encouraged to further discuss treatment plan with them. I did emphasize with the patient that I do not expect any acute events during this hospital stay but they cannot be precluded entirely. Allergies Allergy/AdvReac Type Severity Reaction Status Date / Time pollen extracts Allergy Intermediate ITCHY Verified 04/01/23 15:42 EYES, SNEEZING, CONGESTION Home Medications Medication Instructions Recorded Confirmed Type rosuvastatin 20 mg tablet 20 mg PO QAM 10/23/22 04/01/23 History hydrochlorothiazide 25 mg tablet 25 mg PO DAILY #90 tabs 03/05/23 04/01/23 Rx apixaban 2.5 mg tablet 2.5 mg PO BID 03/20/23 04/01/23 History docusate sodium 100 mg capsule 100 mg PO BID 03/20/23 04/01/23 History losartan 25 mg tablet 25 mg PO DAILY 03/20/23 04/01/23 History polyethylene glycol 3350 17 17 g PO DAILY PRN Constipation 03/20/23 04/01/23 History gram/dose oral powder (Miralax) fexofenadine 180 mg tablet 180 mg PO DAILY PRN SEASONAL 04/01/23 04/01/23 History ALLERGIES Past Med/Surg History Medical History Borderline blood pressure No meds Hypercholesterolemia Kidney stones Hx, passed without intervention Seasonal allergies Urothelial carcinoma of bladder Surgical History H/O transurethral resection of bladder tumor (TURBT) TURBT (Transurethral Resection of the Bladder Tumor) (medium)- Erlin Rg MD 2021 History of anesthesia problem ACL surgery - Slow to wake, required overnight stay- discharged next day without issue Shoulder surgery - he had no problems History of arthroscopy of left shoulder 2015 Hx of arthroscopic knee surgery right knee acl 1992 Hx of colonoscopy 2014? Port-A-Cath in place (12/04/22) Insertion Access Port Left Subclavian with Fluoroscopy(Left) - Francisco Basilio DO Family History Father Myocardial infarction Hypertension Heart disease Aunt Diabetes Other Cancer Denies family history of Colon cancer Ovarian cancer Prostate cancer Breast cancer Social History Smoking Status: Never smoker Tobacco Type: Cigars and Smokeless Tobacco (Dip or Chew) Second Hand Exposure: No; Do You Dip or Chew Tobacco: Yes (hx-quit); Hx Alcohol Use: Yes Alcohol type: beer Alcohol Intake Frequency: 4 or More x per/Week Alcohol Intake Frequency Comment: 2 per day Hx Substance Use: No Preferred Language: Greek Communication Ability: Effective Visual Impairment: Limited Hearing Ability: Normal Clinical Science Consultant Required: No Beliefs That Will Affect Care: None marital status: Current Living Situation: Spouse current occupational status: 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 Conversational with no evidence of dyspnea EYES: No icterus, gaze conjugate. Pupils equal round and reactive to light NOSE: No evidence of epistaxis. MOUTH: No lesions or candidiasis. Mucosa moist. Tongue is midline. No evidence of posterior oropharyngeal drainage or blood. NECK: Supple. No appreciation of stridor or carotid bruits. LUNGS: CTA B/L, no wheezes, rales or rhonchi. Good inspirational effort with no induced cough HEART: Regular, rate controlled ABDOMEN: Soft, NT, ND, BS Present EXTREMITIES: No LE edema, pedal pulses intact NEURO: A&OX3. Deep tendon reflexes 2 out of 4 to the bicep, brachioradialis, and patellar tendons. Toes are downgoing bilaterally. Strength is equal and appropriate upper lower extremities. Pupils equal round and reactive to light. Tongue is midline. No slurred speech. No appreciation of any focal deficits. Results & Data Results & Data Vital Signs (Past 12 Hours) Vital Signs Temp Pulse Pulse Resp BP BP Pulse Ox 04/01/23 13:29 36.4 C 75 18 133/64 99 04/01/23 12:30 84 04/01/23 12:54 98 04/01/23 12:54 76 18 116/62 98 04/01/23 11:09 37.2 C 104 H 18 99/55 L 96 O2 Del Method 04/01/23 13:29 Room Air 04/01/23 12:30 04/01/23 12:54 Room Air 04/01/23 12:54 Room Air 04/01/23 11:09 Room Air Critical Care Results & Data Vital Signs (Past 12 Hours) Vital Signs Temp Pulse Pulse Resp BP BP Pulse Ox 04/01/23 13:29 36.4 C 75 18 133/64 99 04/01/23 12:30 84 04/01/23 12:54 98 04/01/23 12:54 76 18 116/62 98 04/01/23 11:09 37.2 C 104 H 18 99/55 L 96 O2 Del Method 04/01/23 13:29 Room Air 04/01/23 12:30 04/01/23 12:54 Room Air 04/01/23 12:54 Room Air 04/01/23 11:09 Room Air Lab & Micro Results (Past 24 Hours) RBC 2.82 M/uL (4.70-6.10) L 04/01/23 WBC 9.58 K/ul (4.8-10.8) 04/01/23 Hgb 8.7 g/dl (14.0-18.0) L 04/01/23 Hct 24.9 % (42.0-52.0) L 04/01/23 MCV 88.3 fL (80.0-100.0) 04/01/23 MCH 30.9 pg (25.0-34.0) 04/01/23 MCHC 34.9 g/dL (32.0-36.0) 04/01/23 RDW Standard Deviation 41.0 fL (36.4-46.3) 04/01/23 RDW Coefficient of Variation 12.6 % (11.5-14.5) 04/01/23 Plt Count 137 K/uL (130-400) 04/01/23 MPV 9.4 fL (9.4-12.4) 04/01/23 Neutrophils (%) (Auto) 81.6 % 04/01/23 Lymphocytes (%) (Auto) 10.1 % 04/01/23 Monocytes # (Auto) 0.55 K/uL (0.11-0.59) 04/01/23 Eosinophils # (Auto) 0.18 K/uL (0-0.50) 04/01/23 Immature Granulocyte % (Auto) 0.5 % 04/01/23 Neutrophils # (Auto) 7.81 K/uL (1.40-6.50) H 04/01/23 Lymphocytes # (Auto) 0.97 K/uL (1.2-3.4) L 04/01/23 Monocytes # (Auto) 0.55 K/uL (0.11-0.59) 04/01/23 Eosinophils # (Auto) 0.18 K/uL (0-0.50) 04/01/23 Basophils # (Auto) 0.02 K/uL (0-0.2) 04/01/23 Immature Granulocyte # (Auto) 0.05 K/uL (0.01-0.20) 3 Na 131 mmol/L (136-145) L 04/01/23 K 3.1 mmol/L (3.5-5.1) L 04/01/23 Cl 91 mmol/L (98-107) L 04/01/23 CO2 33 mmol/L (21-32) H 04/01/23 Anion Gap 7 (3-11) 04/01/23 BUN 26 mg/dl (6-23) H 04/01/23 Creatinine 1.13 mg/dl (0.6-1.4) 04/01/23 Estimated GFR ( Amer) 79.7 ml/min 04/01/23 Estimated GFR (Non-Af Amer) 68.8 ml/min 04/01/23 BUN/Creatinine Ratio 23.0 (10-20) H 04/01/23 Glu 120 mg/dl (70-99(Fasting)) H 04/01/23 Ca 8.8 mg/dl (8.6-10.3) 04/01/23 Total Bilirubin 0.2 mg/dl (0.2-1.0) 04/01/23 Direct Bilirubin 0.1 mg/dl (0-0.2) 04/01/23 AST 14 U/L (13-39) 04/01/23 ALT 14 U/L (7-52) 04/01/23 Alkaline Phosphatase 55 U/L (34-104) 04/01/23 TP 6.1 gm/dl (6.0-8.3) 04/01/23 Albumin 3.1 gm/dl (3.4-5.0) L 04/01/23 Mg 1.5 mg/dl (1.7-2.4) L 04/01/23 12:09 Calcium Level 8.8 mg/dl (8.6-10.3) 04/01/23 12:09 Prothromb Time International Ratio 1.1 (0.9-1.1) 04/01/23 12:0 9 Venous Blood pH 7.49 (7.36-7.41) H 04/01/23 12:09 Venous Blood Partial Pressure CO2 50 mmHg (38-50) 04/01/23 12:0 9 Venous Blood Partial Pressure O2 32 mmHg 04/01/23 12:09 Venous Blood HCO3 38 mmol/L 04/01/23 12:09 Venous Blood Base Excess 12.7 mEq/L 04/01/23 12:09 Venous Blood Oxygen Saturation < 60.0 % 04/01/23 12:09 Diagnostic Findings (Past 24 Hours) Chest X-Ray 04/01/23 11:25 XR chest 1V portable CLINICAL HISTORY: Sepsis TECHNIQUE: Single frontal radiograph of the chest was obtained. Comparison: Comparison is made to chest radiograph 12/04/2019 FINDINGS: A port catheter is seen. The cardiomediastinal silhouette is normal. The lungs are clear. No evidence of pleural effusion or pneumothorax. IMPRESSION: No acute abnormalities and in particular no radiographic evidence of pneumonia. ACT 112: Negative or not required by law. Electronically signed by: Moises De Souza M.D. 04/01/2023 1:02 PM Abdomen/Pelvis CT 04/01/23 11:[address] WITH IV CONTRAST CT DOSE: 682.10 mGy.cm HISTORY: Acute fever in patient with recent abdominal surgery post op fever TECHNIQUE: Multiaxial CT images of the abdomen and pelvis were performed following the IV administration of 80 cc of Optiray, A dose lowering technique was utilized adhering to the principles of ALARA. COMPARISON STUDY: CT chest, abdomen and pelvis 03/08/2023 FINDINGS: Coronary artery calcifications. Clear lung bases. Subcutaneous emphysema of the anterior abdominal and left lateral chest wall. Unremarkable spleen, contracted gallbladder and adrenal glands. 10 mm cystic lesion of the p ancreatic tail again noted suggestive of a probable sidebranch IPMN. Scattered parenchymal calcifications of the pancreas suggestive of chronic pancreatitis. Subcentimeter hepatic cysts again noted. Patency of the hepatic and portal veins. Bilateral nephrolithiasis redemonstrated with catheter measuring up to 1.1 cm and the left. Catheter in the right measure up to approximately 3 mm. Mild nonsp ecific bilateral perinephric stranding. Mild urothelial thickening of the collecting systems and ureters. Bilateral ureteral stents are in place. Postoperative changes of recent cystectomy with right lower quadrant diverting urostomy. The ureteral stents extend external to the patient. Inflammatory stranding with trace free fluid within the pelvis. Left iliac fluid collection measures 3.7 cm. Small fat filled left inguinal hernia. Atherosclerosis of the aorta without aneurysm. Prostatectomy. Colonic diverticulosis. Subcentimeter lymph nodes in the pelvic mesentery. Anastomotic sutures are noted within small bowel from the pelvis. Small periumbilical fat filled hernia. Mild herniation of fat within the right lower quadrant ostomy site. No acute fracture or destructive bone lesion. Grade 1 anterolisthesis L5 on S1 secondary to chronic pars defects. IMPRESSION: 1. Postoperative changes of recent cystoprostatectomy with right lower quadrant diverting urostomy. 2. Bilateral ureteral stents are in place. There is mild right-sided pelvocaliectasis with urothelial thickening and enhancement of the bilateral renal collecting systems and ureters. Correlate with urinalysis to exclude infection. 3. Left greater than right nephrolithiasis. No ureteral calculi identified. 4. Expected postoperative trace ascites with subcutaneous emphysema. 5. Simple appearing left iliac fluid collection measuring 3.7 cm suggestive of a probable small seroma or developing lymphocele. 6. Additional findings as above. ACT 112: Negative or not required by law. The above report was generated using voice recognition software. It may contain grammatical, syntax or spelling errors. Electronically signed by: Rd Gonzalez M.D. 04/01/2023 1:33 PM I & O Totals 24 Hours 03/31/23 04/01/23 04/02/23 06:59 06:59 06:59 Intake Total 1000 / 1000 Balance 1000 / 1000 Cumulative 04/01/23 10:54 thru 04/01/23 14:28 Intake Total 1000 Balance 1000 RT Ventilator Mngmt (Last Documented) Ventilator Ordered Settings Respiratory Rate 18 04/01/23 13:29 Ventilator - PT Measurements Respiratory Rate 18 PG Care Time/CCT Total # of Minutes Spent Total Time Spent with Patient: Total time spent is greater than 50% in coordination of care (as documented) at patient's floor/unit and/or counseling patient:60 minutes Coding Level of Care Code 39459 INT INP/OBS CARE 375MIN Diagnoses Acute pyelonephritis N10 Anemia D64.9 Anemia type: unspecified type Weakness R53.1 Hypomagnesemia E83.42 Type 2 diabetes mellitus E11.9 Hypertension I10 Hypertension type: primary hypertension Urothelial carcinoma of bladder C67.9 Hypercholesterolemia E78.00 Hypokalemia E87.6 Time Spent (min) 70 (2) Anemia Anemia type: unspecified type Qualified Code(s): D64.9 - Anemia, unspecified (6) Hypertension Hypertension type: primary hypertension Qualified Code(s): I10 - Essential (primary) hypertension
[2023-04-01] MEDS: NSS + 20MEQ KCL 20 MEQ/1,000 ML BAG IV SCH (15:54)
[2023-04-01] MEDS ORDERED: CARBOHYDRATES FOR HYPOGLYCEMIA PO PRN (16:26)
[2023-04-01] MEDS ORDERED: GLUCAGON FOR INJ 1 MG VIAL SQ PRN (16:26)
[2023-04-01] MEDS ORDERED: GLUCOSE 10 TAB/TUBE PO PRN (16:26)
[2023-04-01] MEDS ORDERED: MAGNESIUM HYDROXIDE SUSP 30 ML UDC PO PRN (16:26)
[2023-04-01] MEDS ORDERED: DEXTROSE 50% 50 ML SYRINGE IV PRN (16:26)
[2023-04-01] MEDS ORDERED: GLUCOSE 40% GEL 15 GM TUBE PO PRN (16:26)
[2023-04-01] MEDS ORDERED: ACETAMINOPHEN 325 MG TAB PO PRN (16:26)
[2023-04-01] MEDS ORDERED: ONDANSETRON INJ 2 MG/ML 2 ML VIAL IV PRN (16:26)
[2023-04-01] MEDS ORDERED: POLYETHYLENE (MIRALAX) 17 GM PACK PO PRN (16:26)
[2023-04-01] MEDS ORDERED: ALUMINUM/MAGNESIUM SUSP 30 ML UDC PO PRN (16:26)
--- NOTE | 2023-04-01 17:08 | Electrocardiogram Report ---
Test Reason : Blood Pressure : / mmHG Vent. Rate : 084 BPM Atrial Rate : 084 BPM P-R Int : 144 ms QRS Dur : 078 ms QT Int : 342 ms P-R-T Axes : -13 005 037 degrees QTc Int : 404 ms Normal sinus rhythm Nonspecific ST abnormality When compared with ECG of 17-OCT-2022 10:27, Questionable change in QRS axis Confirmed by Dragan Goddard ([id number]) on 04/01/2023 5:08:11 PM Referred By: REFERRED SELF Confirmed By:Mario Goddard
[2023-04-01 18:26] LABS: Calcium 8.4 mg/dl (8.6-10.3)
[2023-04-01 18:32] LABS: BUN Creatinine Ratio 18.4 (10-20); Creatinine Clr Calc Pharmacy 61.9 ml/min; Est GFR (African American) 78.9 ml/min; Est GFR (Non-African American) 68.1 ml/min
[2023-04-01] MEDS: INSULIN ASPART PER UNIT CHARGE SC SCH ×2 (20:11→23:34)
[2023-04-01] MEDS: APIXABAN 2.5 MG TAB PO SCH (21:15)
[2023-04-01] MEDS: DOCUSATE SODIUM 100 MG CAP PO SCH (21:15)
[2023-04-01] MEDS: PIPERACILLIN/TAZOBACTAM 4.5 GM in DEXTROSE 5% 100 ML IV SCH (21:16)
[2023-04-02] MEDS: NSS + 20MEQ KCL 20 MEQ/1,000 ML BAG IV SCH ×3 (00:03→17:23)
[2023-04-02] MEDS: PIPERACILLIN/TAZOBACTAM 4.5 GM in DEXTROSE 5% 100 ML IV SCH ×3 (03:57→20:17)
[2023-04-02 07:43] LABS: Basophils # (auto) 0.01 K/uL (0-0.2); Basophils % (auto) 0.2 %; Eosinophils # (auto) 0.38 K/uL (0-0.50); Hematocrit (blood only) 21.8 % (42.0-52.0); Hemoglobin 7.4 g/dl (14.0-18.0); Immature Granulocytes # (auto) 0.02 K/uL (0.01-0.20); Immature Granulocytes % (auto) 0.4 %; Lymphocytes # (auto) 1.03 K/uL (1.2-3.4); Lymphocytes % (auto) 18.9 %; Mean Corpuscular Hemoglobin 30.8 pg (25.0-34.0); Mean Corpuscular Hgb Conc 33.9 g/dL (32.0-36.0); Mean Corpuscular Volume 90.8 fL (80.0-100.0); Monocytes # (auto) 0.36 K/uL (0.11-0.59); Monocytes % (auto) 6.6 %; Neutrophils # (auto) 3.65 K/uL (1.40-6.50); Neutrophils % (auto) 66.9 %; Platelet Count 105 K/uL (130-400); RDW Coefficient of Variation 12.5 % (11.5-14.5); RDW Standard Deviation 41.7 fL (36.4-46.3); White Blood Count 5.45 K/ul (4.8-10.8)
[2023-04-02 08:00] LABS: BUN Creatinine Ratio 14.9 (10-20); Calcium 8.3 mg/dl (8.6-10.3); Creatinine Clr Calc Pharmacy 61.9 ml/min; Est GFR (African American) 78.9 ml/min; Est GFR (Non-African American) 68.1 ml/min; Magnesium 1.6 mg/dl (1.7-2.4); Potassium 3.3 mmol/L (3.5-5.1)
[2023-04-02 08:03] LABS: RBC Morphology Unremarkable
[2023-04-02 08:09] LABS: Estimated Average Glucose 100 mg/dl; Hemoglobin A1C 5.1 % (4.5-5.6)
[2023-04-02] MEDS ORDERED: POTASSIUM CHLORIDE CRTAB 20 MEQ TABCR PO STA (08:19)
[2023-04-02] MEDS: LOSARTAN POTASSIUM 25 MG TAB PO SCH (08:20)
[2023-04-02] MEDS: ROSUVASTATIN CALCIUM 20 MG TAB PO SCH (08:20)
[2023-04-02] MEDS: DOCUSATE SODIUM 100 MG CAP PO SCH ×2 (08:20→20:17)
[2023-04-02] MEDS: APIXABAN 2.5 MG TAB PO SCH ×2 (08:21→20:17)
[2023-04-02] MEDS: INSULIN ASPART PER UNIT CHARGE SC SCH ×4 (08:25→20:17)
[2023-04-02] MEDS: MAGNESIUM SULFATE / D5W 1 GM/100 ML BAG IV SCH ×2 (08:34→10:40)
[2023-04-02] MEDS ORDERED: hydroCHLOROthiazide 25 MG TAB PO SCH (09:00)
--- NOTE | 2023-04-02 15:13 | Urology Consultation ---
Date of Consultation April 02, 2023 Assessment & Plan (1) Acute pyelonephritis: (2) Urothelial carcinoma of bladder: Plan 62yo/M with a hx of bladder cancer who recently underwent radical cystectomy with ileal conduit diversion on 03/12/2023 at [facility] admitted to medicine with acute pyelonephritis. CT abd pelvis on arrival shows postoperative changes of recent cystoprostatectomy with RLQ diverting urostomy, bilateral ureteral stents in place, mild right-sided pelvocaliectasis with urothelial thickening, expected postoperative trace ascites with subcutaneous emphysema, simple appearing fluid collection suggestive of a probable small seroma or developing lymphocele. -Afebrile and hemodynamically stable. -Labs reviewed-no leukocytosis, hemoglobin 7.4, normal renal function. -Urine culture preliminary gram-negative bacilli, blood cultures prelim no growth x24 hours. -On Zosyn, follow cultures and tailor as culture data becomes available. -Urostomy intact draining clear yellow urine. Continue to monitor. -CT abd pelvis shows b/l ureteral stents in place. -No acute intervention warranted. -Continue supportive care and antibiotic therapy. -Patient has follow-up with [facility] urology on 03/12. -Urology will follow. History of Present Illness Attending Physician: Serene Contreras MD History of Present Illness 62-year-old male with a hx of bladder cancer who recently underwent radical cystectomy with ileal conduit diversion on 03/12/2023 at [facility]. He presented to the ED yesterday with fever, chills, fatigue and was admitted to medicine with pyelonephritis. CT abdomen pelvis- 1. Postoperative changes of recent cystoprostatectomy with right lower quadrant diverting urostomy. 2. Bilateral ureteral stents are in place. There is mild right-sided pelvocaliectasis with urothelial thickening and enhancement of the bilateral renal collecting systems and ureters. Correlate with urinalysis to exclude infection. 3. Left greater than right nephrolithiasis. No ureteral calculi identified. 4. Expected postoperative trace ascites with subcutaneous emphysema. 5. Simple appearing left iliac fluid collection measuring 3.7 cm suggestive of a probable small seroma or developing lymphocele. 6. Additional findings as above. Patient examined at bedside this afternoon. Awake, resting in bed on arrival. No acute distress. Has a lower right quadrant diverting urostomy which is intact and draining yellow urine. Reports feeling better today. Denies abdominal, flank, suprapubic pain. Denies fevers or chills. Denies nausea or vomiting. Has follow-up with [facility] urology on 03/12. Allergies Allergy/AdvReac Type Severity Reaction Status Date / Time pollen extracts Allergy Intermediate ITCHY Verified 04/01/23 15:42 EYES, SNEEZING, CONGESTION Home Medications Medication Instructions Recorded Confirmed Type rosuvastatin 20 mg tablet 20 mg PO QAM 10/23/22 04/01/23 History hydrochlorothiazide 25 mg tablet 25 mg PO DAILY #90 tabs 03/05/23 04/01/23 Rx apixaban 2.5 mg tablet 2.5 mg PO BID 03/20/23 04/01/23 History docusate sodium 100 mg capsule 100 mg PO BID 03/20/23 04/01/23 History losartan 25 mg tablet 25 mg PO DAILY 03/20/23 04/01/23 History polyethylene glycol 3350 17 17 g PO DAILY PRN Constipation 03/20/23 04/01/23 History gram/dose oral powder (Miralax) fexofenadine 180 mg tablet 180 mg PO DAILY PRN SEASONAL 04/01/23 04/01/23 History ALLERGIES Patient History Medical History Borderline blood pressure No meds Hypercholesterolemia Kidney stones Hx, passed without intervention Seasonal allergies Urothelial carcinoma of bladder Surgical History H/O transurethral resection of bladder tumor (TURBT) TURBT (Transurethral Resection of the Bladder Tumor) (medium)- Erlin Rg MD 2021 History of anesthesia problem ACL surgery - Slow to wake, required overnight stay- discharged next day without issue Shoulder surgery - he had no problems History of arthroscopy of left shoulder 2015 Hx of arthroscopic knee surgery right knee acl 1992 Hx of colonoscopy 2014? Port-A-Cath in place (12/04/22) Insertion Access Port Left Subclavian with Fluoroscopy(Left) - Francisco Basilio DO Family History Father Myocardial infarction Hypertension Heart disease Aunt Diabetes Other Cancer Denies family history of Colon cancer Ovarian cancer Prostate cancer Breast cancer Social History Smoking Status: Former smoker Tobacco Type: Cigars and Smokeless Tobacco (Dip or Chew) Second Hand Exposure: No; Do You Dip or Chew Tobacco: No; Tobacco Cessation Education Requested by Patient: No Hx Alcohol Use: Yes Alcohol type: beer Alcohol Intake Frequency: 4 or More x per/Week Alcohol Intake Frequency Comment: 2 per day Hx Substance Use: No Preferred Language: Korean Communication Ability: Effective Visual Impairment: Limited Hearing Ability: Normal Gravel Screener Required: No Beliefs That Will Affect Care: None marital status: Current Living Situation: Spouse current occupational status: 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 How many Children do You have: 1 Other Information That Helps Us Care for You: No Feels Safe at Home: Yes Safety Concerns: Feels Safe At This Time Childhood Exposure to Second-Hand Smoke: No Diet: regular during the past year weight has: decreased > 10 lbs Dental Care, Regularly: Yes Physical Activity Frequency: 3-4 Times per Week Seatbelt Use: always Sunscreen Use: Yes Assistive Devices: None Review of Systems Review of Systems: All systems reviewed & are unremarkable except as noted in HPI & below Physical Exam Constitutional: well developed and well nourished; no acute distress Eyes: PERRL, conjunctivae normal, anicteric sclerae ENMT: external ear and nose normal, oropharynx normal Neck: normal visual inspection Respiratory: normal respiratory effort; no respiratory distress and no labored breathing Musculoskeletal: Head/Neck/Chest: normocephalic Neurologic: moves all extremities and awake Psychiatric: A+Ox3, euthymic affect Genitourinary: RLQ urostomy intact Results & Data Vital Signs (Past 12 Hours) Vital Signs Temp Pulse Pulse Resp BP Pulse Ox O2 Del Method 04/02/23 11:11 36.4 C L 73 18 125/68 99 Room Air 04/02/23 07:47 36.9 C 69 18 106/65 96 Room Air 04/02/23 07:46 70 04/02/23 03:14 76 PG Care Time/CCT Total # of Minutes Spent Total Time Spent with Patient: Total time spent is greater than 50% in coordination of care (as documented) at patient's floor/unit and/or counseling patient: Coding Level of Care Code 10454 IN/OBS CONSULT LVL 3,45M Diagnoses Acute pyelonephritis N10 Urothelial carcinoma of bladder C67.9
--- NOTE | 2023-04-02 17:21 | Hospitalist Progress Note ---
Date of Service April 02, 2023 Assessment & Plan (1) Acute pyelonephritis: Plan: Acute pyelonephritis due to urostomy Possible Sepsis This is a 62-year-old male that presents with fatigue, fever, chills. He recently had bladder and prostate removal at [facility] 3 weeks ago. He has been home for 2 weeks. Presented with fever times 2 days with a Tmax of 102 F. And increased fatigue. He has no hematuria. With urostomy in place. Patient does continue to have some drainage from his penis which does not have any blood or evidence of pus. No CVA tenderness. CT abdomen/pelvis with postoperative changes of recent cystoprostatectomy with right lower quadrant diverting urostomy, bilateral ureteral stents in place, mild right-sided pelvocaliectasis with urothelial thickening and enhancement of bilateral renal collecting systems and ureters. Also with a simple appearing left iliac fluid collection measuring 3.7 cm suggestive of probable small seroma or developing lymphocele. Much improved now after starting IV antibiotics Urine culture with gram-negative rods-awaiting final ID and sensitivity Blood cultures-remain no growth to date -Continue IV Zosyn -Follow CBC, BMP in the morning -Consult urology for any further recommendations (2) Anemia: Plan: Hgb 8.7 on admission and now down to 7.4, some hemodilution likely an effect since yesterday His hemoglobin was approximately 8 when he left the hospital 3 weeks ago after being transfused 3 units PRBCs He also had chemotherapy prior to his surgery which caused some anemia He does have some pink-tinged urine in his urostomy bag-will monitor for worsening hematuria He does also have some mild thrombocytopenia which could be secondary to infection -Check iron studies in the morning along with B12 and folate and replace as needed -If hemoglobin less than 7, will give PRBC transfusion -Follow CBC in the morning -Would not recommend oral iron pills as he wants to avoid constipation given the recent bowel surgery (3) Hypomagnesemia: Plan: And hypokalemia Magnesium and potassium were low on admission Replaced and remain low but are improved from previous Give IV magnesium and more oral potassium again today Follow BMP and magnesium in the morning (4) Type 2 diabetes mellitus: Plan: Patient told that he had history of prediabetes and that he had a jump in hemoglobin A1c from 5.9 to 6.6 in December Patient deferred treatment with metformin at that time Hemoglobin A1c here normal at 5.1% but may also be falsely low due to anemia Due to acute illness and recent chemotherapy, will initiate NovoLog sliding scale insulin with no basal insulin requirements at this time Diabetic diet Follow as an outpatient (5) Hypertension: Plan: Blood pressures have been low for him likely secondary to recent blood loss and with ongoing infection Hold home HCTZ and may not need to restart Okay to continue losartan for now (6) Urothelial carcinoma of bladder: Plan: Underwent surgery [address] Janelle Broderick [place] [facility] Patient has not heard his pathology results yet and would like to speak with Dr. Ley his oncologist as he was supposed to have an appointment tomorrow anyway- consult placed and I discussed his care with Dr. Ley Last course of chemotherapy administered 01/30/2023 prior to surgery Diverting urostomy is in place. Will consult ostomy nurse to help with management (7) Hypercholesterolemia: Plan: Continue home rosuvastatin Plan DVT prophylaxis: No history of prior thromboembolic event but patient does have active malignancy and recently had complicated surgery at [facility]. We will continue apixaban 2.5 mg p.o. twice daily until advised to stop by patient's primary oncologist Dr. Ley. Disposition-continued stay, but may be able to discharge home tomorrow Admission and Anticipated Discharge Date Admission Date: April 01, 2023 Subjective Patient feeling better today. No more fevers. No abdominal pain or back pain. Has a pink tinge to the urine coming from his urostomy. Denies chest pain or shortness of breath. Telemetry with normal sinus rhythm rates in the 70s to 80s Physical Exam Constitutional: WD/WN, vitals as above Respiratory: normal respiratory effort, lungs clear to auscultation Cardiovascular: RRR, no murmur, no edema Gastrointestinal (Abdomen): Inspection/Auscultation: + abdomen abnormal to inspection (Multiple laparoscopic incisions healing, urostomy) Percussion/Palpation: abdomen soft; abdomen nontender Results & Data Results & Data Vital Signs (Past 12 Hours) Vital Signs Temp Pulse Pulse Resp BP Pulse Ox O2 Del Method 04/02/23 15:44 36.9 C 60 16 123/75 97 Room Air 04/02/23 15:18 71 04/02/23 11:11 36.4 C L 73 18 125/68 99 Room Air 04/02/23 07:47 36.9 C 69 18 106/65 96 Room Air 04/02/23 07:46 70 Laboratory Results CBC, BMP, magnesium, hemoglobin A1c all reviewed PG Care Time/CCT Total # of Minutes Spent Total Time Spent with Patient: Total time spent is greater than 50% in coordination of care (as documented) at patient's floor/unit and/or counseling patient: Coding Level of Care Code 37538 SUB INP/OBS CARE 3/50MIN Diagnoses Acute pyelonephritis N10 Anemia D64.9 Anemia type: unspecified type Hypomagnesemia E83.42 Type 2 diabetes mellitus E11.9 Hypertension I10 Hypertension type: primary hypertension Urothelial carcinoma of bladder C67.9 Hypercholesterolemia E78.00 (2) Anemia Anemia type: unspecified type Qualified Code(s): D64.9 - Anemia, unspecified (5) Hypertension Hypertension type: primary hypertension Qualified Code(s): I10 - Essential (primary) hypertension
[2023-04-03] MEDS: PIPERACILLIN/TAZOBACTAM 4.5 GM in DEXTROSE 5% 100 ML IV SCH (03:24)
[2023-04-03 08:09] LABS: Hematocrit (blood only) 22.7 % (42.0-52.0); Hemoglobin 7.7 g/dl (14.0-18.0); Mean Corpuscular Hemoglobin 30.4 pg (25.0-34.0); Mean Corpuscular Hgb Conc 33.9 g/dL (32.0-36.0); Mean Corpuscular Volume 89.7 fL (80.0-100.0); Mean Platelet Volume 9.1 fL (9.4-12.4); Platelet Count 115 K/uL (130-400); RDW Coefficient of Variation 12.5 % (11.5-14.5); RDW Standard Deviation 40.8 fL (36.4-46.3); Red Blood Count 2.53 M/uL (4.70-6.10); White Blood Count 4.69 K/ul (4.8-10.8)
[2023-04-03 08:28] LABS: Albumin Level 2.7 gm/dl (3.4-5.0); BUN Creatinine Ratio 11.1 (10-20); Bilirubin,Total 0.2 mg/dl (0.2-1.0); Calcium 8.9 mg/dl (8.6-10.3); Creatinine Clr Calc Pharmacy 60.5 ml/min; Est GFR (African American) 76.4 ml/min; Globulin 2.6 gm/dl (2.5-4.0); Magnesium 1.6 mg/dl (1.7-2.4); Potassium 3.5 mmol/L (3.5-5.1); Total Protein 5.3 gm/dl (6.0-8.3)
[2023-04-03 08:32] LABS: Basophils # (auto) 0.01 K/uL (0-0.2); Basophils % (auto) 0.2 %; Eosinophils # (auto) 0.61 K/uL (0-0.50); Immature Granulocytes # (auto) 0.02 K/uL (0.01-0.20); Immature Granulocytes % (auto) 0.4 %; Lymphocytes # (auto) 1.23 K/uL (1.2-3.4); Lymphocytes % (auto) 26.2 %; Monocytes # (auto) 0.38 K/uL (0.11-0.59); Monocytes % (auto) 8.1 %; Neutrophils # (auto) 2.44 K/uL (1.40-6.50); Neutrophils % (auto) 52.1 %; RBC Morphology Unremarkable
[2023-04-03] MEDS ORDERED: POTASSIUM CHLORIDE CRTAB 20 MEQ TABCR PO STA (08:35)
[2023-04-03] MEDS: ROSUVASTATIN CALCIUM 20 MG TAB PO SCH (08:40)
[2023-04-03] MEDS: APIXABAN 2.5 MG TAB PO SCH (08:40)
[2023-04-03] MEDS: LOSARTAN POTASSIUM 25 MG TAB PO SCH (08:40)
[2023-04-03] MEDS: INSULIN ASPART PER UNIT CHARGE SC SCH ×2 (08:42→12:11)
[2023-04-03] MEDS ORDERED: IRON SUCROSE 300 MG in SODIUM CHLORIDE 0.9% 250 ML IV ONE (08:45)
[2023-04-03 08:46] LABS: Ferritin 707.1 ng/ml (8-388)
[2023-04-03] MEDS: DOCUSATE SODIUM 100 MG CAP PO SCH (08:47)
[2023-04-03] MEDS: MAGNESIUM SULFATE / D5W 1 GM/100 ML BAG IV SCH ×2 (08:57→12:21)
--- NOTE | 2023-04-03 10:53 | Discharge Summary ---
Date of Service April 03, 2023 Admission HPI Per Admitting Provider Attending: Dr. Phillips This is a very pleasant 62-year-old male. Past medical history includes recent discovery of bladder cancer, hypertension, seasonal allergies, hyperlipidemia, elevated blood glucose levels. Patient recently given a new diagnosis of diabetes mellitus on 01/16/2023 secondary to increase in hemoglobin A1c from 5.9 to 6.6%. It was recommended at that time the patient started on metformin. With discussion with other providers, the patient elected to follow hemoglobin A1c rather than start treatment for diabetes mellitus. He has a recent history he of urethral carcinoma of the bladder and underwent surgery at [place] with Dr. Janelle Broderick approximately 3 weeks ago. He was that he had bladder, prostate, gallbladder removal with a lower right quadrant diverting urostomy. He has been home for approximately 2 weeks without difficulty. He has a diverting colostomy with good drainage of urine. Patient also has some drainage from his penis into his depends which is clear with no evidence of bleeding or clots. He has noticed some mucus occasionally in his ostomy bag and with the discharge from his penis with no evidence of pus. Patient has no abdominal or suprapubic pain. He has no change in mentation. He has no other acute complaints. Over the last couple of days, the patient has had increased fatigue. He also developed a fever with a Tmax of 102 F last night. He took 1 g of Tylenol and had improvement to 99 F. He then took another gram prior to bedtime and has not had any further fever since that time. Patient did report that he had chills as well. No rigors. Blood pressure has been normal. Patient states that he normally runs in the 130s systolically. CT imaging today shows no evidence of gas or fluid collection suggesting abscess. Patient does have expected postoperative trace ascites with subcutaneous emphysema. This is minimal. Patient also has simple appearing left iliac fluid collection measuring 3.7 cm probable small seroma or developing lymphocele. Bilateral ureteral stents are in place. Patient does have mild right-sided pelvocaliectasis with urethral thickening and enhancement of the bilateral renal collecting system and ureters. Chest ray shows no evidence of pneumonia, infiltrates, consolidation, atelectasis. Laboratory results include: * Hemoglobin of 8.7 which is up from approximately 6 postsurgically. No acute blood loss reported by the patient. * No evidence of leukocytosis although patient did have a slightly elevated neutrophil count of 7.81 K/UL * Sodium 131 with a baseline of approximately 137 * Potassium 3.1 with a baseline of 4.1 * Magnesium of 1.5. Patient received 1 g of magnesium sulfate in the ER. A second gram has been ordered * C-reactive protein is 19.5 * Albumin is 3.1 Urinalysis results in: * Cloudy urine with 2+ protein, 3+ blood, positive nitrates, positive esterase, greater than 30 white blood cells, greater than 30 red blood cells, negative for elevated hyaline casts, 4+ urine bacteria. COVID results are negative as well as influenza A, influenza B, RSV Patient has no other acute complaints at this time. [facility] has been accessed for administration of fluids and IV antibiotics. Patient has never smoked cigarettes but has had occasional cigars and smokeless tobacco in the past. Patient recently retired. 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 CODE STATUS discussion: Patient does desire to be a level 1 full resuscitation but specifically states that he would not want to be on mechanical life support for a prolonged period of time. He understands that his and other family members would help to determine course of action should he be incapacitated as is encouraged to further discuss treatment plan with them. I did emphasize with the patient that I do not expect any acute events during this hospital stay but they cannot be precluded entirely. Principal Diagnosis Acute pyelonephritis Anemia Hypomagnesemia, Hypokalemia Discharge Exam Constitutional WD/WN, vitals as above Respiratory normal respiratory effort, lungs clear to auscultation Cardiovascular RRR, no murmur, no edema Chest (Breasts) Chest: + vascular access device or port (left anterior chest wall,no surorunding erythema) Gastrointestinal (Abdomen) Inspection/Auscultation: + abdomen abnormal to inspection (Multiple laparoscopic incisions healing, urostomy) Percussion/Palpation: abdomen soft; abdomen nontender Psychiatric A+Ox3, euthymic affect Discharge Data Allergies Allergy/AdvReac Type Severity Reaction Status Date / Time pollen extracts Allergy Intermediate ITCHY Verified 04/01/23 15:42 EYES, SNEEZING, CONGESTION Consultations 04/01/23 14:24 ED Decision to Admit Stat 04/02/23 08:17 Consult Urology Routine 04/02/23 17:18 Consult Oncology Routine Ordered Studies 04/01/23 11:30 CT abd pelvis IV con only Stat Hospital Course (1) Acute pyelonephritis: Acute pyelonephritis due to urostomy Possible Sepsis This is a 62-year-old male that presents with fatigue, fever, chills. He recently had bladder and prostate removal at [facility] 3 weeks ago. He has been home for 2 weeks. Presented with fever times 2 days with a Tmax of 102 F. And increased fatigue. He has no hematuria. With urostomy in place. Patient does continue to have some drainage from his penis which does not have any blood or evidence of pus. No CVA tenderness. CT abdomen/pelvis with postoperative changes of recent cystoprostatectomy with right lower quadrant diverting urostomy, bilateral ureteral stents in place, mild right-sided pelvocaliectasis with urothelial thickening and enhancement of bilateral renal collecting systems and ureters. Also with a simple appearing left iliac fluid collection measuring 3.7 cm suggestive of probable small seroma or developing lymphocele. Much improved now after starting IV antibiotics, remains afebrile, no leukocytosis, doing well Urine culture with >100k CFU Klebsiella aerogenes and Group B beta Strep Blood cultures-remain no growth to date at 48 hours -received IV Zosyn while here but because this Klebsiella can induce ampC production and resistance, will send home with po Levaquin x 10 days to cover for Klebsiella and for Strep -Consult urology for any further recommendations appreciated -f/u with Urologist at [place] as planned next week -maintain adequate fluid intake to help flush out urostomy and prevent future infection (2) Anemia: Hgb 8.7 on admission and then down to 7.4, some hemodilution likely an effect from IVFs Hgb 7.6 on day of discharge and transferrin sat low at 9% -Gave Venofer 300mg IV x 1 prior to discharge and should f/u with Heme/Onc for possible future IV iron infusions His hemoglobin was approximately 8 when he left the hospital 3 weeks ago after being transfused 3 units PRBCs He also had chemotherapy prior to his surgery which caused some anemia He did have some pink-tinged urine in his urostomy bag-will monitor for worsening hematuria-cleared up prior to discharge He does also have some mild thrombocytopenia which could be secondary to infection-this is now improving B12 and folate checked and are normal Would not recommend oral iron pills as he wants to avoid constipation given the recent bowel surgery (3) Hypomagnesemia: And hypokalemia Magnesium and potassium were low on admission Replaced and remain slightly low but are improved from previous Give IV magnesium and more oral potassium again today on day of discharge permanently discontinued HCTZ as likely culprit along with recent stressors of surgery and cancer, poorer po intake Follow BMP and magnesium as outpt no oral replacement needed on discharge (4) Type 2 diabetes mellitus: Patient told that he had history of prediabetes and that he had a jump in hemoglobin A1c from 5.9 to 6.6 in December Patient deferred treatment with metformin at that time Hemoglobin A1c here normal at 5.1% but may also be falsely low due to anemia Diabetic diet Follow as an outpatient (5) Hypertension: Blood pressures have been low for him likely secondary to recent blood loss and with ongoing infection, but are in normal range even with holding HCTZ Hold home HCTZ and may not need to restart Okay to continue losartan for now f/u with PCP (6) Urothelial carcinoma of bladder: Underwent surgery [address] Janelle Broderick at [facility] [place] Patient has not heard his pathology results yet and would like to speak with Dr. Ley his oncologist as he was supposed to have an appointment tomorrow anyway- consult placed and I discussed his care with Dr. Ley-he will try to obtain results from [place] and d/w patient Last course of chemotherapy administered 01/30/2023 prior to surgery Diverting urostomy is in place. Will consult ostomy nurse to help with management-appreciated f/u outpt with Drs. Bowden and Jil (7) Hypercholesterolemia: Continue home rosuvastatin Plan DVT prophylaxis: No history of prior thromboembolic event but patient does have active malignancy and recently had complicated surgery at [facility]. We will continue apixaban 2.5 mg p.o. twice daily until advised to stop by patient's primary oncologist Dr. Ley or Dr. Bowden Disposition-dc to home Total Time Total Time Spent Total Time Spent (In Minutes): 40 min Discharge Plan Discharge Items Patient Disposition: Home - Self-Care Reason For Visit: PYLONEPHRITIS Discharge Diagnosis: UTI,Acute pyelonephritis, Iron deficiency anemia Condition on Discharge: Good Activity: Resume your previous activity Non-emergency contact: Primary Care Provider, Surgeon and Oncologist Call non-emergency contact if: you have any medication questions, your symptoms worsen, your pain is not controlled, you have a fever and your temperature is above 101 Follow-up/Referrals: Temo Aleman III, CRNP [Primary Care Provider] - (Follow up within 1-2 weeks) Binu Ley MD [Physician] - (Follow up within 1-2 weeks.) Diet: Carb Consistent or DM2 Addtl Attending Provider Instructions: Please finish out 10 more days of the antibiotic called levofloxacin. Keep your follow up appointment with your Surgeon next week. You have iron deficiency anemia from blood loss from your surgery as well as from your previous chemotherapy. You were given IV iron replacement while here and should follow up with your Oncologist to see if you will need more IV iron in the future. Because your blood pressures are currently not elevated and your magnesium and potassium levels were mildly low, your HCTZ was discontinued. This medication can cause low potassium and magnesium levels and also lowers blood pressure. Follow up with your PCP regarding further management of your blood pressure. Pending Studies at Discharge: Yes (Final blood culture results-no growth to date) Stand-Alone Forms: My [facility], Smoking Cessation Medications and DC Order Prescriptions: New levofloxacin 750 mg tablet 750 mg PO DAILY 10 Days Qty: 10 0RF Continued losartan 25 mg tablet 25 mg PO DAILY docusate sodium 100 mg capsule 100 mg PO BID polyethylene glycol 3350 [Miralax] 17 gram/dose powder 17 g PO DAILY PRN (Reason: Constipation) apixaban 2.5 mg tablet 2.5 mg PO BID fexofenadine [Nicolle] 180 mg Tablet 180 mg PO DAILY PRN (Reason: SEASONAL ALLERGIES) rosuvastatin 20 mg tablet 20 mg PO QAM Discontinued hydrochlorothiazide 25 mg tablet 25 mg PO DAILY Qty: 90 1RF Discharge Orders: Discharge Order (Routine); Ordered 04/03/23 Ordered By: Serene Contreras Admission Data Admit Date/Time: 04/01/23 15:57 Attending Provider: Serene Contreras Admit Provider: Abhay Phillips Primary Care Provider: Temo Aleman III Other Providers: Poncho Bowden ; [place] ; Abhay Phillips ; Massimo Goodman ; Binu Ley Coding Level of Care Code 90825 INP/OBS DISCH >30 MIN Diagnoses Acute pyelonephritis N10 Anemia D64.9 Anemia type: unspecified type Hypomagnesemia E83.42 Type 2 diabetes mellitus E11.9 Hypertension I10 Hypertension type: primary hypertension Urothelial carcinoma of bladder C67.9 Hypercholesterolemia E78.00
--- NOTE | 2023-04-03 12:33 | Urology Progress Note ---
I have discussed Mr. Vazquez's case with ARTEM Pedersen and agree with the above documentation. Overall he is feeling better on antibiotics. Would recommend tailoring as culture data becomes available. He should follow-up with his outside urologist for ureteral stent removal. -Erlin Rg MD. Date of Service April 03, 2023 Assessment & Plan (1) Acute pyelonephritis: (2) Urothelial carcinoma of bladder: Plan 62yo/M with a hx of bladder cancer who recently underwent radical cystectomy with ileal conduit diversion on 03/12/[address] [facility] admitted to medicine with acute pyelonephritis. CT abd pelvis on arrival shows postoperative changes of recent cystoprostatectomy with RLQ diverting urostomy, bilateral ureteral stents in place, mild right-sided pelvocaliectasis with urothelial thickening, expected postoperative trace ascites with subcutaneous emphysema, simple appearing fluid collection suggestive of a probable small seroma or developing lymphocele. -Afebrile and hemodynamically stable. -Labs reviewed-no leukocytosis, hemoglobin 7.7, normal renal function. -Urine culture with >100k CFU Klebsiella aerogenes and Group B beta Strep. Blood cultures prelim no growth. On IV Zosyn. -Urostomy intact draining clear yellow urine. Continue to monitor. -CT abd pelvis shows b/l ureteral stents in place. -No intervention warranted. -Continue supportive care and antibiotic therapy. Follow cultures and tailor as culture data becomes available. -Patient has follow-up with [facility] urology on 03/12, plan to keep as scheduled. -Urology will follow peripherally. Please contact us with any further questions, concerns, or changes in patient status. Admission and Anticipated Discharge Date Admission Date: April 01, 2023 Subjective Patient examined at bedside this AM. Awake, resting in bed on arrival. No acute distress. Reports feeling much better. No fevers. Denies any pain or discomfort. Denies nausea or vomiting. Urostomy draining yellow urine. Review of Systems Constitutional: as per Subjective / HPI Gastrointestinal: as per Subjective / HPI Genitourinary: + as per Subjective / HPI Physical Exam Constitutional: well developed and well nourished; no acute distress Respiratory: no respiratory distress and no labored breathing Skin: No visible rashes or lesions to exposed skin areas Neurologic: awake Psychiatric: A+Ox3, euthymic affect Genitourinary: Urostomy intact Results & Data Vital Signs (Past 12 Hours) Vital Signs Temp Pulse Pulse Resp BP BP Pulse Ox 04/03/23 07:56 36.9 C 69 16 126/73 99 04/03/23 07:16 66 04/03/23 03:29 36.8 C 72 18 113/68 99 O2 Del Method 04/03/23 07:56 Room Air 04/03/23 07:16 04/03/23 03:29 Room Air PG Care Time/CCT Total # of Minutes Spent Total Time Spent with Patient: Total time spent is greater than 50% in coordination of care (as documented) at patient's floor/unit and/or counseling patient: Coding Level of Care Code 92403 SUB INP/OBS CARE 2/35MIN Diagnoses Acute pyelonephritis N10 Urothelial carcinoma of bladder C67.9
[2023-04-03] MEDS ORDERED: HEPARIN 100 UNIT/ML 5ML FLUSH FLUSH PRN (14:53)
--- NOTE | 2023-04-03 21:14 | Consultation ---
Date of Consultation April 03, 2023 Assessment & Plan (1) Urothelial carcinoma of bladder: Pathology still preliminary but I did speak with the pathologist at [place] directly and he indicates that there was no residual carcinoma in the bladder and no carcinoma found in regional lymph nodes. They are still processing the prostate for any incidental metachronous issues there but overall patient does seem to have had a complete response to his neoadjuvant dose dense therapy. Although he has some ongoing hematocrit compromise that is primarily manifest as anemia and he has easily adequate neutrophil and platelet counts. Issues of infection are more mechanical/structural related to his radical cystectomy and urostomy. He does seem to be "bouncing back" quite easily with appropriate antibiotics (2) Anemia: Significant anemia but adequate especially for younger patient. Modest decrease in white count and platelet counts noted as well. Nutritional studies seem more than adequate with elevated ferritin. % iron saturation is down somewhat, this may reflect a more anemia of chronic disease/acute inflammation suppression of iron utilization than true iron deficiency. Anemia primarily a combination of postchemotherapy delayed recovery of full erythropoiesis probably further exacerbated by inflammatory cytokine suppression of iron utilization and red cell production Plan 1. No further specific intervention required for the bladder cancer, we will see him in follow-up in the office in 2 months with most immediate follow-up through the urologic oncology team at [place] 2. Antibiotics is appropriate for his pyelonephritis 3. Monitor anemia for now, conservative transfusion strategy only if hemoglobin falls below 7 g/dL History of Present Illness Reason for Consultation: Patient with bladder cancer status post recent radical cystectomy admitted with Attending Physician: Serene Contreras MD History of Present Illness Patient with high-grade urothelial carcinoma of the bladder stage II status post neoadjuvant dose dense [facility] 12/10/2022 - 01/29/2023 than radical cystectomy at [facility] 03/12/2023. Admitted now with acute pyelonephritis probably related to recent urostomy placement. After overnight antibiotics feels relatively well, anxious about his pathology results Allergies Allergy/AdvReac Type Severity Reaction Status Date / Time pollen extracts Allergy Intermediate ITCHY Verified 04/01/23 15:42 EYES, SNEEZING, CONGESTION Home Medications Medication Instructions Recorded Confirmed Type rosuvastatin 20 mg tablet 20 mg PO QAM 10/23/22 04/01/23 History apixaban 2.5 mg tablet 2.5 mg PO BID 03/20/23 04/01/23 History docusate sodium 100 mg capsule 100 mg PO BID 03/20/23 04/01/23 History losartan 25 mg tablet 25 mg PO DAILY 03/20/23 04/01/23 History polyethylene glycol 3350 17 17 g PO DAILY PRN Constipation 03/20/23 04/01/23 History gram/dose oral powder (Miralax) fexofenadine 180 mg tablet 180 mg PO DAILY PRN SEASONAL 04/01/23 04/01/23 History ALLERGIES levofloxacin 750 mg tablet 750 mg PO DAILY 10 days #10 tabs 04/03/23 Rx Patient History Medical History Borderline blood pressure No meds Hypercholesterolemia Kidney stones Hx, passed without intervention Seasonal allergies Urothelial carcinoma of bladder Surgical History H/O transurethral resection of bladder tumor (TURBT) TURBT (Transurethral Resection of the Bladder Tumor) (medium)- Erlin Rg MD 2021 History of anesthesia problem ACL surgery - Slow to wake, required overnight stay- discharged next day without issue Shoulder surgery - he had no problems History of arthroscopy of left shoulder 2015 Hx of arthroscopic knee surgery right knee acl 1992 Hx of colonoscopy 2014? Port-A-Cath in place (12/04/22) Insertion Access Port Left Subclavian with Fluoroscopy(Left) - Francisco Basilio DO Family History Father Myocardial infarction Hypertension Heart disease Aunt Diabetes Other Cancer Denies family history of Colon cancer Ovarian cancer Prostate cancer Breast cancer Social History Smoking Status: Former smoker Tobacco Type: Cigars and Smokeless Tobacco (Dip or Chew) Second Hand Exposure: No; Do You Dip or Chew Tobacco: No; Hx Alcohol Use: Yes Alcohol type: beer Alcohol Intake Frequency: 4 or More x per/Week Alcohol Intake Frequency Comment: 2 per day Hx Substance Use: No Preferred Language: Zimbabwean Communication Ability: Effective Visual Impairment: Limited Hearing Ability: Normal Patroller Required: No Beliefs That Will Affect Care: None marital status: Current Living Situation: Spouse current occupational status: 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 How many Children do You have: 1 Feels Safe at Home: Yes Childhood Exposure to Second-Hand Smoke: No Diet: regular during the past year weight has: decreased > 10 lbs Dental Care, Regularly: Yes Physical Activity Frequency: 3-4 Times per Week Seatbelt Use: always Sunscreen Use: Yes Assistive Devices: None Physical Exam Physical Exam: Exam is stable Results & Data Vital Signs (Past 12 Hours) Vital Signs Temp Pulse Pulse Resp BP BP Pulse Ox 04/03/23 11:00 36.4 C L 67 16 130/78 99 04/03/23 12:41 36.9 C 75 69 16 126/73 113/68 99 O2 Del Method 04/03/23 11:00 Room Air 04/03/23 12:41 Laboratory Results Laboratory Results - last 24 hr 04/03/23 04/03/23 04/03/23 07:29 07:32 07:32 WBC 4.69 L RBC 2.53 L Hgb 7.7 L Hct 22.7 L MCV 89.7 MCH 30.4 MCHC 33.9 RDW Std Deviation 40.8 RDW Coeff of Mara 12.5 Plt Count 115 L MPV 9.1 L Immature Gran % (Auto) 0.4 Neut % (Auto) 52.1 Lymph % (Auto) 26.2 Monroe % (Auto) 8.1 Eos % (Auto) 13.0 Baso % (Auto) 0.2 Neut # (Auto) 2.44 Lymph # (Auto) 1.23 Monroe # (Auto) 0.38 Eos # (Auto) 0.61 H Baso # (Auto) 0.01 Immature Gran # (Auto) 0.02 RBC Morphology Unremarkable Sodium 139 Potassium 3.5 Chloride 102 Carbon Dioxide 30 Anion Gap 7 BUN 13 Creatinine 1.17 Est Cr Clr Drug Dosing 60.5 Est GFR ( Amer) 76.4 Est GFR (Non-Af Amer) 66.0 BUN/Creatinine Ratio 11.1 Glucose 107 H POC Glucose 121 H Calcium 8.9 Magnesium 1.6 L Iron 19 L TIBC 213 L Unsaturated IBC 194 Transferrin % Sat 9 L Ferritin 707.1 H Total Bilirubin 0.2 AST 15 ALT 18 Alkaline Phosphatase 37 Total Protein 5.3 L Albumin 2.7 L Globulin 2.6 Albumin/Globulin Ratio 1.0 Vitamin B12 Folate 04/03/23 04/03/23 07:32 11:13 WBC RBC Hgb Hct MCV MCH MCHC RDW Std Deviation RDW Coeff of Mara Plt Count MPV Immature Gran % (Auto) Neut % (Auto) Lymph % (Auto) Monroe % (Auto) Eos % (Auto) Baso % (Auto) Neut # (Auto) Lymph # (Auto) Monroe # (Auto) Eos # (Auto) Baso # (Auto) Immature Gran # (Auto) RBC Morphology Sodium Potassium Chloride Carbon Dioxide Anion Gap BUN Creatinine Est Cr Clr Drug Dosing Est GFR ( Amer) Est GFR (Non-Af Amer) BUN/Creatinine Ratio Glucose POC Glucose 78 Calcium Magnesium Iron TIBC Unsaturated IBC Transferrin % Sat Ferritin Total Bilirubin AST ALT Alkaline Phosphatase Total Protein Albumin Globulin Albumin/Globulin Ratio Vitamin B12 370 Folate 13.99 PG Care Time/CCT Total # of Minutes Spent Total Time Spent with Patient: Total time spent is greater than 50% in coordination of care (as documented) at patient's floor/unit and/or counseling patient: Coding Level of Care Code 11086 IN/OBS CONSULT LVL 2,35M Diagnoses Urothelial carcinoma of bladder C67.9 Anemia D64.9 Anemia type: unspecified type (2) Anemia Anemia type: unspecified type Qualified Code(s): D64.9 - Anemia, unspecified
== END 2023-04-03 15:35 | disposition home health service (06) | DRG 698 ==
LOC: ED 10:54 → SUATTDRO 15:57 → EDINP 15:57 → 2N 19:02

== ENCOUNTER 2023-05-22 21:31 | Inpatient (IN) ==
[2023-05-22] MEDS ORDERED: CEFEPIME 2,000 MG/20 ML VIAL IV STA (22:00)
--- NOTE | 2023-05-22 22:03 | Emergency Department Note ---
Impression & Plan Acute UTI, Anemia, Fever, MOLLY (acute kidney injury) ED Provider Note NAME: ELLIOTT CANDELARIO AGE: 62 SEX: M : 1960 ARRIVES VIA: Walk-In INFORMANT: Patient, ED PROVIDER(S): Christophe Sarmiento MD CHIEF COMPLAINT: Fevers, chills, possible UTI MEDICAL DECISION MAKING: Patient presents due to concern for fever in the setting of possible UTI. IV was established blood work is obtained and sepsis protocols were initiated. Patient was ordered 2 L of IV fluids which be greater than 30 cc/kg bolus. Lactate and procalcitonin was ordered. Patient was ordered cefepime given his prior history of Klebsiella which was pansensitive. I did order cefepime for this. I also did order vancomycin given the patient's recent instrumentation and stent removal. Patient's blood work shows a normal white count with a hemoglobin of 9 which is chronic and stable. Patient's platelet count is unremarkable. Patient's creatinine 1.78 shows MOLLY from previous most recently is 1.25 in March. Magnesium is slightly low at 1.4. This was ordered for replacement. Urinalysis does show positive for infection. COVID-negative. Given the patient's prior history and symptoms do believe the patient would benefit from inpatient treatment at this time. I did speak with the on-call hospital service and the patient was admitted by Dr. Llanos. Prior /Outside records reviewed: I did review prior microbiology from urinalysis clean-catch from April 01, 2023. This showed Klebsiella which was pansensitive. Differential diagnosis: UTI, sepsis, dehydration, MOLLY, pneumonia, bronchitis among others were considered. Diagnostics, as interpreted by me: ECG: Normal sinus rhythm, rate of 95, normal intervals, normal axis, no ST elevations. Cardiac monitoring: An order was placed for continuous cardiac monitoring. The monitor shows a rate of 87 with sinus rhythm. Patient was placed on pulse oximetry Medical decision rules: None Imaging studies: See below I informally reviewed the patient's chest x-ray. No obvious pneumonia or pneumothorax. HPI: Patient presents due to concern for fevers and chills. The patient states that this feels similar to when he has had prior UTIs. The patient does have a prior history of a urostomy which is in place secondary to prior bladder cancer. The patient states that he was down at [facility] and did have ureteral stents removed recently on . Patient states that he did develop a fever today and did take 2 Tylenol. This did improve his fever. The patient states that he did have some chills and felt body aches yesterday which made him feel similar to when he had a prior UTI and associated infection. Patient denies any chest pains or shortness of breath. No cough. The patient denies any nausea vomiting. No falls or trauma. The patient does follow locally with Dr. Rg with urology. Patient has had mild abdominal discomfort but no significant pain. PAST MEDICAL HISTORY: See Below PAST SURGICAL HISTORY: See Below SOCIAL HISTORY: See Below HOME MEDICATIONS: See Below ALLERGIES: See Below VITALS: See Below PHYSICAL EXAMINATION: GENERAL: NAD, wearing a mask, non-toxic. EYE EXAM: Normal conjunctiva. PERRL, no anisocoria and EOM's grossly intact w/o pain. NECK: Supple, no nuchal rigidity, no adenopathy, non-tender. No signs of meningismus. FROM of the neck with good chin to chest and neck extension. No stridor. LUNGS: Clear to auscultation. Normal chest wall mechanics. HEART: NSR, no MRG. ABDOMEN: Abdomen soft, non-tender, urostomy in place with sediment straw-colored urine no masses, no rebound or guarding. BACK: No CVA TTP. SKIN: No rashes and no bruising. UPPER EXTREMITIES: Upper extremities are grossly normal. LOWER EXTREMITIES: Grossly normal, no edema. NEURO EXAM: A&O x3, cranial nerves II-XII grossly intact, normal speech, moves all 4 extremities. Past Med/Surg History Medical History Borderline blood pressure No meds Hypercholesterolemia Kidney stones Hx, passed without intervention Seasonal allergies Urothelial carcinoma of bladder Surgical History H/O transurethral resection of bladder tumor (TURBT) TURBT (Transurethral Resection of the Bladder Tumor) (medium)- Erlin Rg MD 2021 History of anesthesia problem ACL surgery - Slow to wake, required overnight stay- discharged next day with out issue Shoulder surgery - he had no problems History of arthroscopy of left shoulder 2015 Hx of arthroscopic knee surgery right knee acl 1992 Hx of colonoscopy 2014? Port-A-Cath in place (12/04/22) Insertion Access Port Left Subclavian with Fluoroscopy(Left) - Francisco Basilio DO Family History Father Myocardial infarction Hypertension Heart disease Aunt Diabetes Other Cancer Denies family history of Colon cancer Ovarian cancer Prostate cancer Breast cancer Social History Smoking Status: Former smoker Tobacco Type: Cigars and Smokeless Tobacco (Dip or Chew) Second Hand Exposure: No; Do You Dip or Chew Tobacco: No; Hx Alcohol Use: Yes Alcohol type: beer Alcohol Intake Frequency: 4 or More x per/Week Alcohol Intake Frequency Comment: 2 per day Hx Substance Use: No Preferred Language: Mongolian Communication Ability: Effective Visual Impairment: Limited Hearing Ability: Normal Automation Design Engineer Required: No Beliefs That Will Affect Care: None marital status: Current Living Situation: Spouse current occupational status: 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 How many Children do You have: 1 Feels Safe at Home: Yes Childhood Exposure to Second-Hand Smoke: No Diet: regular during the past year weight has: decreased > 10 lbs Dental Care, Regularly: Yes Physical Activity Frequency: 3-4 Times per Week Seatbelt Use: always Sunscreen Use: Yes Assistive Devices: None Allergies Allergies Allergy/AdvReac Type Severity Reaction Status Date / Time pollen extracts Allergy Intermediate ITCHY Verified 05/22/23 22:14 EYES, SNEEZING, CONGESTION Home Meds Home Medications Medication Instructions Recorded Confirmed rosuvastatin 20 mg tablet 20 mg PO QAM 10/23/22 05/22/23 losartan 25 mg tablet 25 mg PO DAILY 03/20/23 05/22/23 fexofenadine 180 mg tablet 180 mg PO DAILY PRN SEASONAL 04/01/23 05/22/23 ALLERGIES Results & Data (ED) Vital Signs Vital Signs - 24 hr 05/22/23 21:34 05/22/23 22:09 05/22/23 22:27 Temperature 37.7 C H Temperature Source Oral Pulse Rate 115 H Pulse Rate [Bilateral] 98 H 94 H Pulse Rate from SpO2 Sensor Respiratory Rate 18 18 13 Respiratory Effort / Characteristics Non-Labored Spontaneous Respiratory Depth Normal Blood Pressure 131/72 Blood Pressure [Right Arm] 110/55 L 115/55 L Blood Pressure Mean 91 Blood Pressure Mean [Right Arm] 73 75 Blood Pressure Position Sitting Pulse Oximetry 95 94 94 Oxygen Delivery Method Room Air Room Air Room Air Sepsis Recent Fever Within 48 Hours Yes Sepsis New/Unexplained Change in Mental Status No Sepsis Action Taken by Nursing No Action Required 05/22/23 22:15 05/22/23 22:30 05/22/23 22:25 Temperature Temperature Source Pulse Rate 94 H Pulse Rate [Bilateral] 93 H 94 H Pulse Rate from SpO2 Sensor Respiratory Rate 13 14 Respiratory Effort / Characteristics Respiratory Depth Blood Pressure Blood Pressure [Right Arm] 115/55 L 112/65 Blood Pressure Mean Blood Pressure Mean [Right Arm] 75 80 Blood Pressure Position Pulse Oximetry 95 93 Oxygen Delivery Method Sepsis Recent Fever Within 48 Hours Sepsis New/Unexplained Change in Mental Status Sepsis Action Taken by Nursing 05/22/23 22:28 05/22/23 22:30 05/22/23 23:00 Temperature Temperature Source Pulse Rate 93 H 94 H Pulse Rate [Bilateral] Pulse Rate from SpO2 Sensor 93 H 95 H Respiratory Rate 22 24 Respiratory Effort / Characteristics Non-Labored Respiratory Depth Normal Blood Pressure 115/55 L 112/65 Blood Pressure [Right Arm] Blood Pressure Mean 75 80 Blood Pressure Mean [Right Arm] Blood Pressure Position Pulse Oximetry 92 93 Oxygen Delivery Method Room Air Room Air Room Air Sepsis Recent Fever Within 48 Hours Sepsis New/Unexplained Change in Mental Status Sepsis Action Taken by Nursing 05/22/23 23:00 05/22/23 22:40 05/22/23 22:50 Temperature Temperature Source Pulse Rate 89 87 Pulse Rate [Bilateral] Pulse Rate from SpO2 Sensor 89 88 Respiratory Rate 16 19 Respiratory Effort / Characteristics Respiratory Depth Blood Pressure Blood Pressure [Right Arm] Blood Pressure Mean Blood Pressure Mean [Right Arm] Blood Pressure Position Pulse Oximetry 96 94 94 Oxygen Delivery Method Sepsis Recent Fever Within 48 Hours Sepsis New/Unexplained Change in Mental Status Sepsis Action Taken by Nursing 05/22/23 23:00 05/22/23 23:00 Temperature Temperature Source Pulse Rate 85 Pulse Rate [Bilateral] Pulse Rate from SpO2 Sensor 85 Respiratory Rate 19 Respiratory Effort / Characteristics Respiratory Depth Blood Pressure 108/58 L Blood Pressure [Right Arm] Blood Pressure Mean 74 Blood Pressure Mean [Right Arm] Blood Pressure Position Pulse Oximetry 96 Oxygen Delivery Method Sepsis Recent Fever Within 48 Hours Sepsis New/Unexplained Change in Mental Status Sepsis Action Taken by Usp Medications Current Medication List: was personally reviewed by me Laboratory Data Attestation: I reviewed the patient's lab results. 05/22/23 20:02 05/22/23 20:02 Lab Results 05/22/23 05/22/23 05/22/23 Range/Units 20:02 20:02 20:02 WBC 10.70 (4.8-10.8) K/ul RBC 2.98 L (4.70-6.10) M/uL Hgb 9.1 L (14.0-18.0) g/dl Hct 26.7 L (42.0-52.0) % MCV 89.6 (80.0-100.0) fL MCH 30.5 (25.0-34.0) pg MCHC 34.1 (32.0-36.0) g/dL RDW Std Deviation 45.8 (36.4-46.3) fL RDW Coeff of Mara 14.0 (11.5-14.5) % Plt Count 133 (130-400) K/uL MPV 9.4 (9.4-12.4) fL Immature Gran % (Auto) 0.7 % Neut % (Auto) 83.6 % Lymph % (Auto) 5.7 % Dauphin % (Auto) 8.5 % Eos % (Auto) 1.3 % Baso % (Auto) 0.2 % Neut # (Auto) 8.95 H (1.40-6.50) K/uL Lymph # (Auto) 0.61 L (1.2-3.4) K/uL Da[place]hin # (Auto) 0.91 H (0.11-0.59) K/uL Eos # (Auto) 0.14 (0-0.50) K/uL Baso # (Auto) 0.02 (0-0.2) K/uL Immature Gran # (Auto) 0.07 (0.01-0.20) K/uL Sodium 134 L (136-145) mmol/L Potassium 3.7 (3.5-5.1) mmol/L Chloride 100 (98-107) mmol/L Carbon Dioxide 25 (21-32) mmol/L Anion Gap 9 (3-11) BUN 30 H (6-23) mg/dl Creatinine 1.78 H (0.6-1.4) mg/dl Est Cr Clr Drug Dosing 40.4 ml/min Est GFR ( Amer) 46.0 ml/min Est GFR (Non-Af Amer) 39.7 ml/min BUN/Creatinine Ratio 16.9 (10-20) Glucose 138 H (70-99(Fasting)) mg/dl Lactate (0.4-2.0) mmol/L Calcium 8.9 (8.6-10.3) mg/dl Magnesium 1.4 L (1.7-2.4) mg/dl Total Bilirubin 0.5 (0.2-1.0) mg/dl Direct Bilirubin 0.2 (0-0.2) mg/dl AST 9 L (13-39) U/L ALT 9 (7-52) U/L Alkaline Phosphatase 41 (34-104) U/L Troponin I High Sens 9.6 (0-20) pg/ml Total Protein 6.5 (6.0-8.3) gm/dl Albumin 3.5 (3.4-5.0) gm/dl Procalcitonin 0.44 (0-0.5) ng/ml Urine Color Urine Appearance (Clear) Urine pH (4.5-7.5) Ur Specific Rainbow (1.000-1.030) Urine Protein (Negative) Urine Glucose (UA) (Negative) Urine Ketones (Negative) Urine Blood (Negative) Urine Nitrite (Negative) Urine Bilirubin (Negative) Urine Urobilinogen (Negative) Ur Leukocyte Esterase (Negative) Urine WBC (Auto) (0-5) /hpf Urine RBC (Auto) (0-4) /hpf U Hyaline Cast (Auto) (0-5) /lpf U Epithel Cells (Auto) (0-5) /lpf Urine Bacteria (Auto) (Negative) Amorphous Sediment (None Prsent) Urine Yeast SARS-CoV-2, RNA, NAAT (NEGATIVE) 05/22/23 05/22/23 05/22/23 Range/Units 22:15 22:20 22:30 WBC (4.8-10.8) K/ul RBC (4.70-6.10) M/uL Hgb (14.0-18.0) g/dl Hct (42.0-52.0) % MCV (80.0-100.0) fL MCH (25.0-34.0) pg MCHC (32.0-36.0) g/dL RDW Std Deviation (36.4-46.3) fL RDW Coeff of Mara (11.5-14.5) % Plt Count (130-400) K/uL MPV (9.4-12.4) fL Immature Gran % (Auto) % Neut % (Auto) % Lymph % (Auto) % Dauphin % (Auto) % Eos % (Auto) % Baso % (Auto) % Neut # (Auto) (1.40-6.50) K/uL Lymph # (Auto) (1.2-3.4) K/uL Da[place]hin # (Auto) (0.11-0.59) K/uL Eos # (Auto) (0-0.50) K/uL Baso # (Auto) (0-0.2) K/uL Immature Gran # (Auto) (0.01-0.20) K/uL Sodium (136-145) mmol/L Potassium (3.5-5.1) mmol/L Chloride (98-107) mmol/L Carbon Dioxide (21-32) mmol/L Anion Gap (3-11) BUN (6-23) mg/dl Creatinine (0.6-1.4) mg/dl Est Cr Clr Drug Dosing ml/min Est GFR ( Amer) ml/min Est GFR (Non-Af Amer) ml/min BUN/Creatinine Ratio (10-20) Glucose (70-99(Fasting)) mg/dl Lactate 0.8 (0.4-2.0) mmol/L Calcium (8.6-10.3) mg/dl Magnesium (1.7-2.4) mg/dl Total Bilirubin (0.2-1.0) mg/dl Direct Bilirubin (0-0.2) mg/dl AST (13-39) U/L ALT (7-52) U/L Alkaline Phosphatase (34-104) U/L Troponin I High Sens (0-20) pg/ml Total Protein (6.0-8.3) gm/dl Albumin (3.4-5.0) gm/dl Procalcitonin (0-0.5) ng/ml Urine Color Yellow Urine Appearance Cloudy A (Clear) Urine pH 7.0 (4.5-7.5) Ur Specific Rainbow 1.010 (1.000-1.030) Urine Protein 2+ H (Negative) Urine Glucose (UA) Negative (Negative) Urine Ketones Negative (Negative) Urine Blood 1+ H (Negative) Urine Nitrite Positive A (Negative) Urine Bilirubin Negative (Negative) Urine Urobilinogen Negative (Negative) Ur Leukocyte Esterase 3+ H (Negative) Urine WBC (Auto) >30 H (0-5) /hpf Urine RBC (Auto) 0-4 (0-4) /hpf U Hyaline Cast (Auto) 1-5 (0-5) /lpf U Epithel Cells (Auto) >30 H (0-5) /lpf Urine Bacteria (Auto) 3+ H (Negative) Amorphous Sediment Present A (None Prsent) Urine Yeast Not Reportable SARS-CoV-2, RNA, NAAT NEGATIVE (NEGATIVE) Administered Medications Vancomycin HCl 1,750 mg/ (Sodium Chloride) 535 mls @ 200 mls/hr IV NOW ONE Stop: 05/23/23 00:50 Last Admin: 05/22/23 22:45 Dose: 200 mls/hr Documented By: TARIQ Discontinued Medications Cefepime HCl (Maxipime) 2,000 mg in 20 mls @ 5 mls/min IV NOW STA; Protocol Stop: 05/22/23 22:03 Last Admin: 05/22/23 22:20 Dose: 5 mls/min Documented By: TARIQ Sodium Chloride (Nss 1000ml) 1,000 mls @ 999 mls/hr IV .Q1H1M [facility] Stop: 05/22/23 23:15 Last Admin: 05/22/23 22:20 Dose: 999 mls/hr Documented By: TARIQ Sodium Chloride (Nss 1000ml) 500 mls @ 999 mls/hr IV .Q31M [facility] Stop: 05/22/23 22:45 Last Admin: 05/22/23 23:58 Dose: 999 mls/hr Documented By: PATI Imaging Data Radiologist's Impression: Abdomen/Pelvis CT 05/22/23 23:35 Exam(s): CT ABDOMEN + PELVIS Without Contrast EXAM: CT Abdomen and Pelvis Without Intravenous Contrast CLINICAL HISTORY: Reason for exam: MOLLY s/p stent removal, bladder CA /urostomy. TECHNIQUE: Axial computed tomography images of the abdomen and pelvis without intravenous contrast. CTDI is 19.52 mGy and DLP is 971.72 mGy-cm. Automated exposure control was utilized for the study. A dose lowering technique was utilized adhering to the principles of ALARA. COMPARISON: Dated 04/01/23 FINDINGS: Lung bases: Unremarkable. No mass. No consolidation. ABDOMEN: Liver: Unremarkable. Gallbladder and bile ducts: Unremarkable. No calcified stones. No ductal dilation. Pancreas: Unremarkable. No ductal dilation. Spleen: Unremarkable. No splenomegaly. Adrenals: Unremarkable. No mass. Kidneys and ureters: There is moderate left-sided hydroureteronephrosis extending to a 7 mm proximal ureteral calculus (image 87 series 2). There is mild urothelial thickening of the right renal collecting system of uncertain significance. There is an 8 mm left lower pole posterior intrarenal calculus. Stomach and bowel: Scattered colonic diverticula without CT evidence for active diverticulitis. No obstruction. PELVIS: Appendix: No findings to suggest acute appendicitis. Bladder: Unremarkable. No stones. Reproductive: Unremarkable as visualized. ABDOMEN and PELVIS: Intraperitoneal space: Unremarkable. No free air. No significant fluid collection. Bones/joints: Degenerative change of the thoracolumbar spine. No acute fracture. No dislocation. Soft tissues: Unremarkable. Vasculature: Unremarkable. No abdominal aortic aneurysm. Lymph nodes: Unremarkable. No enlarged lymph nodes. Other findings: Right lower quadrant ileal conduit in place. IMPRESSION: 1. Moderate left hydroureteronephrosis extending to a 7 millimeter proximal ureteral calculus. 2. Mild right-sided urothelial thickening without savi hydronephrosis. Electronically signed by: Chris Winter MD 05/23/23 00:20 AM Discharge Plan Visit Data Chief Complaint: Fever Stated Complaint: FEVER, ED Provider: Christophe Sarmiento Discharge Problem: Acute UTI, Anemia, Fever, MOLLY (acute kidney injury) Forms Stand Alone Forms: [facility] [facility] Prescriptions Prescriptions: No Action losartan 25 mg tablet 25 mg PO DAILY fexofenadine 180 mg Tablet 180 mg PO DAILY PRN (Reason: SEASONAL ALLERGIES) rosuvastatin 20 mg tablet 20 mg PO QAM Referrals Referrals: Temo Aleman III, CRNP [Primary Care Provider] - Anemia Qualifiers: Anemia type: unspecified type Qualified Code(s): D64.9 - Anemia, unspecified Fever Qualifiers: Fever type: due to other condition Qualified Code(s): R50.81 - Fever presenting with conditions classified elsewhere
[2023-05-22] MEDS ORDERED: VANCOMYCIN CONSULT ACTIVE PRN (22:10)
[2023-05-22] MEDS ORDERED: VANCOMYCIN HCL 1,750 MG in SODIUM CHLORIDE 0.9% 500 ML IV ONE (22:10)
[2023-05-22] MEDS ORDERED: SODIUM CHLORIDE 0.9% 1000ML 1,000 ML IV SCH (22:15)
[2023-05-22] MEDS ORDERED: SODIUM CHLORIDE 0.9% 1000ML 500 ML IV SCH (22:15)
[2023-05-22 22:23] LABS: Basophils # (auto) 0.02 K/uL (0-0.2); Basophils % (auto) 0.2 %; Eosinophils # (auto) 0.14 K/uL (0-0.50); Eosinophils % (auto) 1.3 %; Hematocrit (blood only) 26.7 % (42.0-52.0); Hemoglobin 9.1 g/dl (14.0-18.0); Immature Granulocytes # (auto) 0.07 K/uL (0.01-0.20); Immature Granulocytes % (auto) 0.7 %; Lymphocytes # (auto) 0.61 K/uL (1.2-3.4); Lymphocytes % (auto) 5.7 %; Mean Corpuscular Hemoglobin 30.5 pg (25.0-34.0); Mean Corpuscular Hgb Conc 34.1 g/dL (32.0-36.0); Mean Corpuscular Volume 89.6 fL (80.0-100.0); Mean Platelet Volume 9.4 fL (9.4-12.4); Monocytes # (auto) 0.91 K/uL (0.11-0.59); Monocytes % (auto) 8.5 %; Neutrophils # (auto) 8.95 K/uL (1.40-6.50); Neutrophils % (auto) 83.6 %; Platelet Count 133 K/uL (130-400); RDW Standard Deviation 45.8 fL (36.4-46.3); Red Blood Count 2.98 M/uL (4.70-6.10)
[2023-05-22 22:37] LABS: Albumin Level 3.5 gm/dl (3.4-5.0); Bilirubin Direct 0.2 mg/dl (0-0.2); Bilirubin,Total 0.5 mg/dl (0.2-1.0); Calcium 8.9 mg/dl (8.6-10.3); Magnesium 1.4 mg/dl (1.7-2.4); Potassium 3.7 mmol/L (3.5-5.1)
[2023-05-22 22:43] LABS: BUN Creatinine Ratio 16.9 (10-20); Creatinine Clr Calc Pharmacy 40.4 ml/min; Est GFR (Non-African American) 39.7 ml/min; Total Protein 6.5 gm/dl (6.0-8.3)
[2023-05-22 22:48] LABS: Appearance Urine Cloudy (Clear); Bacteria Urine Automated 3+ (Negative); Bilirubin Urine Negative (Negative); Blood Urine 1+ (Negative); Color Urine Yellow; Epithelial Cell Urine Auto >30 /lpf (0-5); Glucose Urine UA Negative (Negative); Ketones Urine Negative (Negative); Leukocyte Esterase Urine 3+ (Negative); Nitrite Urine Positive (Negative); Protein Urine 2+ (Negative); Urobilinogen Urine Negative (Negative); WBC Urine Automated >30 /hpf (0-5)
[2023-05-22 22:48] LABS: Troponin I High Sensitivity 9.6 pg/ml (0-20)
[2023-05-22 23:12] LABS: Amorphous Sediment Urine Present (None Prsent); RBC Urine Automated 0-4 /hpf (0-4)
--- NOTE | 2023-05-22 23:51 | History & Physical Report ---
Date of Service May 22, 2023 Assessment & Plan (1) Calculus of proximal left ureter: (2) Hydronephrosis with obstructing calculus: (3) Hydronephrosis of left kidney: (4) Acute UTI: (5) MOLLY (acute kidney injury): (6) Type 2 diabetes mellitus: (7) Hypertension: (8) Urothelial carcinoma of bladder: (9) Hypercholesterolemia: (10) IPMN (intraductal papillary mucinous neoplasm): (11) Presence of urostomy: Plan proximal 7 mm left ureteral calculus/moderate left hydroureteronephrosis- Status post bilateral ureteral stent removal last week Follow urine culture and sensitivity Cefepime 2 g IV every 12 hours Patient reports only mild discomfort intermittently NPO Acetaminophen 1 g IV every 8 hours as needed mild to moderate pain Consult urology right lower quadrant diverting urostomy/Radical cystectomy with ileal conduit diversion on 03/12/2023 for urothelial carcinoma bladder - following with [facility] acute kidney injury- Creatinine 1.78 on admission, with base 1.1 He is status post 1500 mls of normal saline in ED continue NSS at 100 MLS per hour repeat laboratories in [place] address obstructing kidney stone anemia- Hemoglobin 9.1, continues to increase after having received 3 units PRBCs at previous admission follow serially IPMN- Noted on CT as 10 mm in size in the pancreatic tail periodic imaging to follow hyperlipidemia- Hold rosuvastatin while n.p.o. hypertension- Hold losartan in the setting of acute kidney injury History of Present Illness Chief Complaint: The patient presents to the emergency department with feeling mildly generally unwell for a few days, and developed fevers and chills approximately 5 days after bilateral ureteral stents were removed at [facility]. Primary Care Provider: Temo Aleman, PRIMO, ARTEM The patient is a 62-year-old male with past medical history including urothelial carcinoma bladder, status post radical cystectomy with ileal conduit diversion on 03/12/2023 at [facility]. He is status post bilateral ureteral stent removal last week, and continues with right lower quadrant diverting urostomy. The patient developed feeling generally unwell over the past few days, and recently developed a temperature. Due to concerns regarding possible [place] tract infection, patient presented to the ED for assessment. Allergies Allergy/AdvReac Type Severity Reaction Status Date / Time pollen extracts Allergy Intermediate ITCHY Verified 05/22/23 22:14 EYES, SNEEZING, CONGESTION Home Medications Medication Instructions Recorded Confirmed Type rosuvastatin 20 mg tablet 20 mg PO QAM 10/23/22 05/22/23 History losartan 25 mg tablet 25 mg PO DAILY 03/20/23 05/22/23 History fexofenadine 180 mg tablet 180 mg PO DAILY PRN SEASONAL 04/01/23 05/22/23 History ALLERGIES Past Med/Surg History Medical History (Updated 05/23/23 @ 02:39 by Jackson England MD) Borderline blood pressure No meds Hypercholesterolemia IPMN (intraductal papillary mucinous neoplasm) Kidney stones Hx, passed without intervention Presence of urostomy Seasonal allergies Urothelial carcinoma of bladder Surgical History H/O transurethral resection of bladder tumor (TURBT) TURBT (Transurethral Resection of the Bladder Tumor) (medium)- Erlin Rg MD 2021 History of anesthesia problem ACL surgery - Slow to wake, required overnight stay- discharged next day without issue Shoulder surgery - he had no problems History of arthroscopy of left shoulder 2015 Hx of arthroscopic knee surgery right knee acl 1992 Hx of colonoscopy 2014? Port-A-Cath in place (12/04/22) Insertion Access Port Left Subclavian with Fluoroscopy(Left) - Francisco Basilio, DO Family History Father Myocardial infarction Hypertension Heart disease Aunt Diabetes Other Cancer Denies family history of Colon cancer Ovarian cancer Prostate cancer Breast cancer Social History Smoking Status: Former smoker Tobacco Type: Cigars and Smokeless Tobacco (Dip or Chew) Second Hand Exposure: No; Do You Dip or Chew Tobacco: No; Hx Alcohol Use: Yes Alcohol type: beer Alcohol Intake Frequency: 4 or More x per/Week Alcohol Intake Frequency Comment: 2 per day Hx Substance Use: No Preferred Language: Slovenian Communication Ability: Effective Visual Impairment: Limited Hearing Ability: Normal Passport Support Associate Required: No Beliefs That Will Affect Care: None marital status: Current Living Situation: Spouse current occupational status: 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 How many Children do You have: 1 Feels Safe at Home: Yes Childhood Exposure to Second-Hand Smoke: No Diet: regular during the past year weight has: decreased > 10 lbs Dental Care, Regularly: Yes Physical Activity Frequency: 3-4 Times per Week Seatbelt Use: always Sunscreen Use: Yes Assistive Devices: None Review of Systems Review of Systems: The patient denies chest pain, palpitations, shortness of breath, dyspnea on exertion, cough, lower extremity swelling, sore throat, sweats, nausea, vomiting, diarrhea, constipation, abdominal pain, pelvic pain, blood in urine or stool, lightheadedness, dizziness, headache, memory loss, loss of consciousness, rash, abnormal bruising or bleeding, imbalance, focal or generalized weakness, numbness or tingling in arms or legs, generalized arthralgias or myalgias, neck pain, or night sweats. The review of systems is otherwise negative other than for that already noted above, and at least 10 systems have been reviewed. Physical Exam Physical Exam: The patient is awake, alert and oriented 3, well developed and well nourished, normocephalic and atraumatic, lying in bed and in no acute distress. HEENT--PERRL, EOMI, mucous membranes and oropharynx mildly dry Neck--supple. No JVD. No bruits. Thyroid normal, trachea midline, no adenopathy. Heart--normal S1 and S2. No murmurs, rubs or gallops. Lungs--clear bilaterally, no respiratory distress, no accessory muscle use. Abdomen--normal bowel sounds and soft. Nontender. Nondistended, no hernias or masses, no organomegaly. Extremities--no cyanosis or clubbing. No edema. Dermatologic--normal skin turgor, normal color, no abnormal lymph nodes, no rash. Neurologic--cranial nerves II through XII grossly intact. Rheumatologic--normal range of motion. Psychiatric--normal affect. Results & Data Results & Data Vital Signs (Past 12 Hours) Vital Signs Temp Pulse Pulse Resp BP BP Pulse Ox 05/22/23 23:00 85 19 96 05/22/23 23:00 108/58 L 05/22/23 22:50 87 19 94 05/22/23 22:40 89 16 94 05/22/23 23:00 96 05/22/23 23:00 05/22/23 22:30 94 H 24 112/65 93 07/05/23 22:28 93 H 22 115/55 L 92 05/22/23 22:25 94 H 05/22/23 22:30 94 H 14 112/65 93 05/22/23 22:15 93 H 13 115/55 L 95 05/22/23 22:27 94 H 13 115/55 L 94 05/22/23 22:09 98 H 18 110/55 L 94 05/22/23 21:34 37.7 C H 115 H 18 131/72 95 O2 Del Method 05/22/23 23:00 05/22/23 23:00 05/22/23 22:50 05/22/23 22:40 05/22/23 23:00 05/22/23 23:00 Room Air 05/22/23 22:30 Room Air 05/22/23 22:28 Room Air 05/22/23 22:25 05/22/23 22:30 05/22/23 22:15 05/22/23 22:27 Room Air 05/22/23 22:09 Room Air 05/22/23 21:34 Room Air Laboratory Results Laboratory Results WBC 10.70 K/ul (4.8-10.8) 05/22/23 20:02 RBC 2.98 M/uL (4.70-6.10) L 05/22/23 20:02 Hgb 9.1 g/dl (14.0-18.0) L 05/22/23 20:02 Hct 26.7 % (42.0-52.0) L 05/22/23 20:02 MCV 89.6 fL (80.0-100.0) 05/22/23 20:02 MCH 30.5 pg (25.0-34.0) 05/22/23 20:02 MCHC 34.1 g/dL (32.0-36.0) 05/22/23 20:02 RDW Std Deviation 45.8 fL (36.4-46.3) 05/22/23 20:02 RDW Coeff of Mara 14.0 % (11.5-14.5) 05/22/23 20:02 Plt Count 133 K/uL (130-400) 05/22/23 20:02 MPV 9.4 fL (9.4-12.4) 05/22/23 20:02 Immature Gran % (Auto) 0.7 % 05/22/23 20:02 Neut % (Auto) 83.6 % 05/22/23 20:02 Lymph % (Auto) 5.7 % 05/22/23 20:02 [place] % (Auto) 8.5 % 05/22/23 20:02 Eos % (Auto) 1.3 % 05/22/23 20:02 Baso % (Auto) 0.2 % 05/22/23 20:02 Neut # (Auto) 8.95 K/uL (1.40-6.50) H 05/22/23 20:02 Lymph # (Auto) 0.61 K/uL (1.2-3.4) L 05/22/23 20:02 [place] # (Auto) 0.91 K/uL (0.11-0.59) H 05/22/23 20:02 Eos # (Auto) 0.14 K/uL (0-0.50) 05/22/23 20:02 Baso # (Auto) 0.02 K/uL (0-0.2) 05/22/23 20:02 Immature Gran # (Auto) 0.07 K/uL (0.01-0.20) 05/22/23 20:02 Sodium 134 mmol/L (136-145) L 05/22/23 20:02 Potassium 3.7 mmol/L (3.5-5.1) 05/22/23 20:02 Chloride 100 mmol/L (98-107) 05/22/23 20:02 Carbon Dioxide 25 mmol/L (21-32) 05/22/23 20:02 Anion Gap 9 (3-11) 05/22/23 20:02 BUN 30 mg/dl (6-23) H 05/22/23 20:02 Creatinine 1.78 mg/dl (0.6-1.4) H 05/22/23 20:02 Est Cr Clr Drug Dosing 40.4 ml/min 05/22/23 20:02 Est GFR ( Amer) 46.0 ml/min 05/22/23 20:02 Est GFR (Non-Af Amer) 39.7 ml/min 05/22/23 20:02 BUN/Creatinine Ratio 16.9 (10-20) 05/22/23 20:02 Glucose 138 mg/dl (70-99(Fasting)) H 05/22/23 20:02 Lactate 0.8 mmol/L (0.4-2.0) 05/22/23 22:20 Calcium 8.9 mg/dl (8.6-10.3) 05/22/23 20:02 Magnesium 1.4 mg/dl (1.7-2.4) L 05/22/23 20:02 Total Bilirubin 0.5 mg/dl (0.2-1.0) 05/22/23 20:02 Direct Bilirubin 0.2 mg/dl (0-0.2) 05/22/23 20:02 AST 9 U/L (13-39) L 05/22/23 20:02 ALT 9 U/L (7-52) 05/22/23 20:02 Alkaline Phosphatase 41 U/L (34-104) 05/22/23 20:02 Troponin I High Sens 9.6 pg/ml (0-20) 05/22/23 20:02 Total Protein 6.5 gm/dl (6.0-8.3) 05/22/23 20:02 Albumin 3.5 gm/dl (3.4-5.0) 05/22/23 20:02 Procalcitonin 0.44 ng/ml (0-0.5) 05/22/23 20:02 Urine Color Yellow 05/22/23 22:30 Urine Appearance Cloudy (Clear) A 05/22/23 22:30 Urine pH 7.0 (4.5-7.5) 05/22/23 22:30 Ur Specific [place] 1.010 (1.000-1.030) 05/22/23 22:30 Urine Protein 2+ (Negative) H 05/22/23 22:30 Urine Glucose (UA) Negative (Negative) 05/22/23 22:30 Urine Ketones Negative (Negative) 05/22/23 22:30 Urine Blood 1+ (Negative) H 05/22/23 22:30 Urine Nitrite Positive (Negative) A 05/22/23 22:30 Urine Bilirubin Negative (Negative) 05/22/23 22:30 Urine Urobilinogen Negative (Negative) 05/22/23 22:30 Ur Leukocyte Esterase 3+ (Negative) H 05/22/23 22:30 Urine WBC (Auto) >30 /hpf (0-5) H 05/22/23 22:30 Urine RBC (Auto) 0-4 /hpf (0-4) 05/22/23 22:30 U Hyaline Cast (Auto) 1-5 /lpf (0-5) 05/22/23 22:30 U Epithel Cells (Auto) >30 /lpf (0-5) H 05/22/23 22:30 Urine Bacteria (Auto) 3+ (Negative) H 05/22/23 22:30 Amorphous Sediment Present (None Prsent) A 05/22/23 22:30 Urine Yeast Not Reportable 05/22/23 22:30 SARS-CoV-2, RNA, NAAT NEGATIVE (NEGATIVE) 05/22/23 22:15 Impressions Abdomen/Pelvis CT 05/22/23 23:35 Exam(s): CT ABDOMEN + PELVIS Without Contrast EXAM: CT Abdomen and Pelvis Without Intravenous Contrast CLINICAL HISTORY: Reason for exam: MOLLY s/p stent removal, bladder CA /urostomy. TECHNIQUE: Axial computed tomography images of the abdomen and pelvis without intravenous contrast. CTDI is 19.52 mGy and DLP is 971.72 mGy-cm. Automated exposure control was utilized for the study. A dose lowering technique was utilized adhering to the principles of ALARA. COMPARISON: Dated 04/01/23 FINDINGS: Lung bases: Unremarkable. No mass. No consolidation. ABDOMEN: Liver: Unremarkable. Gallbladder and bile ducts: Unremarkable. No calcified stones. No ductal dilation. Pancreas: Unremarkable. No ductal dilation. Spleen: Unremarkable. No splenomegaly. Adrenals: Unremarkable. No mass. Kidneys and ureters: There is moderate left-sided hydroureteronephrosis extending to a 7 mm proximal ureteral calculus (image 87 series 2). There is mild urothelial thickening of the right renal collecting system of uncertain significance. There is an 8 mm left lower pole posterior intrarenal calculus. Stomach and bowel: Scattered colonic diverticula without CT evidence for active diverticulitis. No obstruction. PELVIS: Appendix: No findings to suggest acute appendicitis. Bladder: Unremarkable. No stones. Reproductive: Unremarkable as visualized. ABDOMEN and PELVIS: Intraperitoneal space: Unremarkable. No free air. No significant fluid collection. Bones/joints: Degenerative change of the thoracolumbar spine. No acute fracture. No dislocation. Soft tissues: Unremarkable. Vasculature: Unremarkable. No abdominal aortic aneurysm. Lymph nodes: Unremarkable. No enlarged lymph nodes. Other findings: Right lower quadrant ileal conduit in place. IMPRESSION: 1. Moderate left hydroureteronephrosis extending to a 7 millimeter proximal ureteral calculus. 2. Mild right-sided urothelial thickening without savi hydronephrosis. Electronically signed by: Chris Winter MD 05/23/23 00:20 AM Code Status & VTE Plan Code Status full code VTE Prophylaxis Plan VTE Prophylaxis will be ordered: Yes PG Care Time/CCT Total # of Minutes Spent Total Time Spent with Patient: Total time spent is greater than 50% in coordination of care (as documented) at patient's floor/unit and/or counseling patient: Coding Level of Care Code 58361 INT INP/OBS CARE 3/75MIN Diagnoses Calculus of proximal left ureter N20.1 Hydronephrosis with obstructing calculus N13.2 Hydronephrosis of left kidney N13.30 Acute UTI N39.0 MOLLY (acute kidney injury) N17.9 Type 2 diabetes mellitus E11.9 Hypertension I10 Hypertension type: primary hypertension Urothelial carcinoma of bladder C67.9 Hypercholesterolemia E78.00 IPMN (intraductal papillary mucinous neoplasm) D49.0 Presence of urostomy Z93.6 (7) Hypertension Hypertension type: primary hypertension Qualified Code(s): I10 - Essential (primary) hypertension
--- NOTE | 2023-05-23 00:22 | CT Scan Report ---
Exam(s): CT ABDOMEN + PELVIS Without Contrast EXAM: CT Abdomen and Pelvis Without Intravenous Contrast CLINICAL HISTORY: Reason for exam: MOLLY s/p stent removal, bladder CA /urostomy. TECHNIQUE: Axial computed tomography images of the abdomen and pelvis without intravenous contrast. CTDI is 19.52 mGy and DLP is 971.72 mGy-cm. Automated exposure control was utilized for the study. A dose lowering technique was utilized adhering to the principles of ALARA. COMPARISON: Dated 04/01/23 FINDINGS: Lung bases: Unremarkable. No mass. No consolidation. ABDOMEN: Liver: Unremarkable. Gallbladder and bile ducts: Unremarkable. No calcified stones. No ductal dilation. Pancreas: Unremarkable. No ductal dilation. Spleen: Unremarkable. No splenomegaly. Adrenals: Unremarkable. No mass. Kidneys and ureters: There is moderate left-sided hydroureteronephrosis extending to a 7 mm proximal ureteral calculus (image 87 series 2). There is mild urothelial thickening of the right renal collecting system of uncertain significance. There is an 8 mm left lower pole posterior intrarenal calculus. Stomach and bowel: Scattered colonic diverticula without CT evidence for active diverticulitis. No obstruction. PELVIS: Appendix: No findings to suggest acute appendicitis. Bladder: Unremarkable. No stones. Reproductive: Unremarkable as visualized. ABDOMEN and PELVIS: Intraperitoneal space: Unremarkable. No free air. No significant fluid collection. Bones/joints: Degenerative change of the thoracolumbar spine. No acute fracture. No dislocation. Soft tissues: Unremarkable. Vasculature: Unremarkable. No abdominal aortic aneurysm. Lymph nodes: Unremarkable. No enlarged lymph nodes. Other findings: Right lower quadrant ileal conduit in place. IMPRESSION: 1. Moderate left hydroureteronephrosis extending to a 7 millimeter proximal ureteral calculus. 2. Mild right-sided urothelial thickening without savi hydronephrosis. Electronically signed by: Chris Winter MD 05/23/23 00:20 AM
[2023-05-23] MEDS ORDERED: MAGNESIUM OXIDE 400 MG TAB PO STA (00:37)
[2023-05-23] MEDS ORDERED: ONDANSETRON INJ 2 MG/ML 2 ML VIAL IV PRN (01:29)
[2023-05-23] MEDS ORDERED: SODIUM CHLORIDE 0.9% 1000ML 1,000 ML IV SCH (01:29)
[2023-05-23] MEDS ORDERED: ACETAMINOPHEN 325 MG TAB PO PRN (01:29)
[2023-05-23] MEDS ORDERED: ACETAMINOPHEN 1,000 MG/100 ML VIAL IV PRN (05:42)
[2023-05-23] MEDS ORDERED: ACETAMINOPHEN 1000 MG/100 ML IV IV ONE (05:59)
[2023-05-23 06:51] LABS: Basophils # (auto) 0.01 K/uL (0-0.2); Basophils % (auto) 0.1 %; Eosinophils # (auto) 0.05 K/uL (0-0.50); Eosinophils % (auto) 0.5 %; Hematocrit (blood only) 26.7 % (42.0-52.0); Hemoglobin 9.1 g/dl (14.0-18.0); Immature Granulocytes # (auto) 0.08 K/uL (0.01-0.20); Immature Granulocytes % (auto) 0.8 %; Lymphocytes # (auto) 0.72 K/uL (1.2-3.4); Lymphocytes % (auto) 7.2 %; Mean Corpuscular Hemoglobin 30.5 pg (25.0-34.0); Mean Corpuscular Hgb Conc 34.1 g/dL (32.0-36.0); Mean Corpuscular Volume 89.6 fL (80.0-100.0); Mean Platelet Volume 9.4 fL (9.4-12.4); Monocytes # (auto) 0.53 K/uL (0.11-0.59); Monocytes % (auto) 5.3 %; Neutrophils # (auto) 8.63 K/uL (1.40-6.50); Neutrophils % (auto) 86.1 %; Platelet Count 122 K/uL (130-400); RDW Coefficient of Variation 13.8 % (11.5-14.5); RDW Standard Deviation 45.3 fL (36.4-46.3); Red Blood Count 2.98 M/uL (4.70-6.10); White Blood Count 10.02 K/ul (4.8-10.8)
[2023-05-23 07:19] LABS: Albumin Level 3.2 gm/dl (3.4-5.0); BUN Creatinine Ratio 16.8 (10-20); Calcium 8.4 mg/dl (8.6-10.3); Creatinine Clr Calc Pharmacy 49.1 ml/min; Est GFR (African American) 57.1 ml/min; Est GFR (Non-African American) 49.2 ml/min; Magnesium 1.6 mg/dl (1.7-2.4); Phosphorus 2.6 mg/dl (2.5-4.9)
--- NOTE | 2023-05-23 07:33 | XRay Report ---
XR chest 1V portable CLINICAL HISTORY: Sepsis. COMPARISON STUDY: Chest radiograph April 01, 2023. Chest CT March 08, 2023. FINDINGS: Left subclavian [id number] is in place. Lung volumes are normal. Lungs are clear. There is no pneumothorax or pleural effusion. Cardiac size is normal. Mediastinal contours are normal. Ther e is no evidence for pulmonary edema. IMPRESSION: No acute cardiopulmonary findings. ACT 112: Negative or not required by law. Electronically signed by: Roberto Moreira M.D. 05/23/2023 7:32 AM
[2023-05-23] MEDS ORDERED: CEFEPIME 2,000 MG in SYRINGE 0 ML IV SCH (08:00)
--- NOTE | 2023-05-23 08:37 | Urology Consultation ---
Date of Consultation May 23, 2023 Assessment & Plan (1) Calculus of proximal left ureter: (2) Hydronephrosis of left kidney: (3) Acute UTI: (4) MOLLY (acute kidney injury): (5) Urothelial carcinoma of bladder: (6) Presence of urostomy: Plan 62 yo M with a hx of high grade muscle invasive bladder cancer s/p radical cystectomy with ileal conduit diversion in February 2023 at [facility], bilateral stents removed on 05/16/23, admitted to [facility] for left obstructing ureteral stone, MOLLY, and suspected urinary tract infection. Patient febrile earlier this morning, hemodynamically stable Urine and blood cultures are pending Continue broad-spectrum antibiotics and narrow per sensitivity data when available CT A/P notable for a 7 mm obstructing left proximal ureteral stone with hydronephrosis Patient will need prompt surgical intervention for decompression Given hx of cystectomy with ileal conduit diversion, he will need to be transferred to tertiary center with IR for placement of left percutaneous nephrostomy tube Recommend urgent transfer given fever, suspected infection in the context of obstructing stone Continue antibiotics and supportive care Discussed recommendations with patient, he is understanding Case discussed with attending hospitalist Case discussed with on-call urologist. See attending note. History of Present Illness Attending Physician: Serene Contreras MD History of Present Illness 62-year-old male with a hx of high grade muscle invasive bladder cancer s/p radical cystectomy with ileal conduit diversion in February 2023 at [facility], bilateral ureteral stents removed on 05/16/23, who presented to the emergency department on 05/22/2023 with fever/chills and ill feelings and admitted for obstructing left ureteral stone, MOLLY, and suspected UTI. On arrival, he was afebrile, tachycardic and normotensive. Lab work independently reviewed and WBC 10.7, hemoglobin 9.1, creatinine 1.78, sodium 134, lactate 0.8. Urinalysis notable for 2+ protein, 1+ blood, positive nitrates, 3+ LE, >30 WBC, greater than simple 30 epithelials, 3+ bacteria. CT abdomen pelvis showed moderate left hydro nephrosis secondary to a 7 mm proximal ureteral calculus, mild right-sided urothelial thickening without hydronephrosis. ED course: IV vancomycin, cefepime, IV fluids. Of note, he was hospitalized at [facility] from 04/01 - 04/03/23 for pyelonephritis. Urine culture grew out Klebsiella. Chart review: VS: 134/62, HR 86, Resp 16, O2 95% on RA Tmax 38.0 today @0525 Labs -creatinine 1.49, WBC 10.02, hemoglobin 9.1 Urine culture pending Blood cultures pending On IV cefepime Patient seen and examined at bedside this morning. He is awake, alert and resting in bed, no apparent distress. Reports mild left flank discomfort. Urostomy patent and draining clear yellow urine. Reports fever/chills this morning, improved at present time. He reports symptoms of fever/chills, low appetite and ill feelings started 2 days ago. No additional concerns at this time. Allergies Allergy/AdvReac Type Severity Reaction Status Date / Time pollen extracts Allergy Intermediate ITCHY Verified 05/22/23 22:14 EYES, SNEEZING, CONGESTION Home Medications Medication Instructions Recorded Confirmed Type rosuvastatin 20 mg tablet 20 mg PO QAM 10/23/22 05/22/23 History losartan 25 mg tablet 25 mg PO DAILY 03/20/23 05/22/23 History fexofenadine 180 mg tablet 180 mg PO DAILY PRN SEASONAL 04/01/23 05/22/23 History ALLERGIES Patient History Medical History Borderline blood pressure No meds Hypercholesterolemia IPMN (intraductal papillary mucinous neoplasm) Kidney stones Hx, passed without intervention Presence of urostomy Seasonal allergies Urothelial carcinoma of bladder Surgical History H/O transurethral resection of bladder tumor (TURBT) TURBT (Transurethral Resection of the Bladder Tumor) (medium)- Erlin Rg MD 2021 History of anesthesia problem ACL surgery - Slow to wake, required overnight stay- discharged next day without issue Shoulder surgery - he had no problems History of arthroscopy of left shoulder 2015 Hx of arthroscopic knee surgery right knee acl 1992 Hx of colonoscopy 2014? Port-A-Cath in place (12/04/22) Insertion Access Port Left Subclavian with Fluoroscopy(Left) - Francisco Basilio DO Family History Father Myocardial infarction Hypertension Heart disease Aunt Diabetes Other Cancer Denies family history of Colon cancer Ovarian cancer Prostate cancer Breast cancer Social History Smoking Status: Former smoker Tobacco Type: Cigars and Smokeless Tobacco (Dip or Chew) Second Hand Exposure: No; Do You Dip or Chew Tobacco: No; Hx Alcohol Use: Yes Alcohol type: beer Alcohol Intake Frequency: 4 or More x per/Week Alcohol Intake Frequency Comment: 2 per day Hx Substance Use: No Preferred Language: Citizen Of [place] Communication Ability: Effective Visual Impairment: Limited Hearing Ability: Normal 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 Bonding Required: No Beliefs That Will Affect Care: None marital status: Current Living Situation: Family current occupational status: 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 How many Children do You have: 1 Other Information That Helps Us Care for You: No Feels Safe at Home: Yes Safety Concerns: Feels Safe At This Time Childhood Exposure to Second-Hand Smoke: No Diet: regular during the past year weight has: decreased > 10 lbs Dental Care, Regularly: Yes Physical Activity Frequency: 3-4 Times per Week Seatbelt Use: always Sunscreen Use: Yes Assistive Devices: None Review of Systems Review of Systems: All systems reviewed & are unremarkable except as noted in HPI & below Physical Exam Constitutional: well developed and well nourished; no acute distress Eyes: no scleral abnormality Neck: normal visual inspection Respiratory: normal respiratory effort; no respiratory distress and no labored breathing Cardiovascular: Extremities: no pedal edema Gastrointestinal (Abdomen): Inspection/Auscultation: abdomen normal to inspection; abdomen not distended Percussion/Palpation: abdomen soft; abdomen nontender Musculoskeletal: Head/Neck/Chest: normocephalic Neurologic: moves all extremities and awake Psychiatric: A+Ox3, euthymic affect Genitourinary: RLQ urostomy intact and patent and draining clear yellow urine with some occasional mucus in tubing, stoma pink and healthy Results & Data Vital Signs (Past 12 Hours) Vital Signs Temp Pulse Pulse Resp BP BP Pulse Ox 05/23/23 08:00 36.7 C 86 18 134/62 95 05/23/23 07:02 88 05/23/23 05:25 38 C H 102 H 22 115/57 L 95 05/23/23 01:29 05/23/23 01:29 74 05/23/23 01:29 36.9 C 74 16 108/67 95 05/23/23 01:17 78 16 94/58 L 98 05/22/23 23:00 85 19 96 05/22/23 23:00 108/58 L 05/22/23 22:50 87 19 94 05/22/23 22:40 89 16 94 05/22/23 23:00 96 05/22/23 23:00 05/22/23 22:30 94 H 24 112/65 93 05/22/23 22:28 93 H 22 115/55 L 92 05/22/23 22:25 94 H 05/22/23 22:30 94 H 14 112/65 93 05/22/23 22:15 93 H 13 115/55 L 95 05/22/23 22:27 94 H 13 115/55 L 94 05/22/23 22:09 98 H 18 110/55 L 94 05/22/23 21:34 37.7 C H 115 H 18 131/72 95 Pulse Ox O2 Del Method O2 Del Method 05/23/23 08:00 Room Air 05/23/23 07:02 05/23/23 05:25 Room Air 05/23/23 01:29 96 Room Air 05/23/23 01:29 05/23/23 01:29 Room Air 05/23/23 01:17 Room Air 05/22/23 23:00 05/22/23 23:00 05/22/23 22:50 05/22/23 22:40 05/22/23 23:00 05/22/23 23:00 Room Air 05/22/23 22:30 Room Air 05/22/23 22:28 Room Air 05/22/23 22:25 05/22/23 22:30 05/22/23 22:15 05/22/23 22:27 Room Air 05/22/23 22:09 Room Air 05/22/23 21:34 Room Air PG Care Time/CCT Total # of Minutes Spent Total Time Spent with Patient: Total time spent is greater than 50% in coordination of care (as documented) at patient's floor/unit and/or counseling patient: Coding Level of Care Code 49456 IN/OBS CONSULT LVL 4,60M Diagnoses Calculus of proximal left ureter N20.1 Hydronephrosis of left kidney N13.30 Acute UTI N39.0 MOLLY (acute kidney injury) N17.9 Urothelial carcinoma of bladder C67.9 Presence of urostomy Z93.6 Time Spent (min) 60
[2023-05-23] MEDS: MAGNESIUM SULFATE / D5W 1 GM/100 ML BAG IV SCH ×2 (08:43→10:46)
[2023-05-23] MEDS ORDERED: ROSUVASTATIN CALCIUM 20 MG TAB PO SCH (09:00)
--- NOTE | 2023-05-23 09:29 | Discharge Summary ---
Discharge Summary Date of Service May 23, 2023 Notes For Next Care Provider Medication Changes From Visit Cefepime IV Vanco x 1 dose Admission HPI Per Admitting Provider The patient is a 62-year-old male with past medical history including urothelial carcinoma bladder, status post radical cystectomy with ileal conduit diversion on 03/12/2023 at . He is status post bilateral ureteral stent removal last week, and continues with right lower quadrant diverting urostomy. The patient developed feeling generally unwell over the past few days, and recently developed a temperature. Due to concerns regarding possible [place] tract infection, patient presented to the ED for assessment. Principal Dx & Hospital Course #1 = Principal Diagnosis (1) Sepsis: proximal 7 mm left ureteral calculus/moderate left hydroureteronephrosis-with fevers, tachycardia, UTI Status post bilateral ureteral stent removal last week Follow urine culture and sensitivity-pending Blood cultures-pending/NGTD Is hemodynamically stable for now Continue broad spectrum abx with Cefepime 2 g IV every 12 hours; did receive one dose of IV Vanco in ER Keep NPO Appreciate Urology consult-recommend transfer to [facility] [place] for perc nephrostomy tubes- graciously accepted in transfer by Dr. Falguni Grullon of Urology service Acetaminophen 1 g IV every 8 hours as needed mild to moderate pain right lower quadrant diverting urostomy/Radical cystectomy with ileal conduit diversion on 03/12/2023 for urothelial carcinoma bladder - following with (2) Hydronephrosis with obstructing calculus: as above (3) Acute UTI: as above (4) MOLLY (acute kidney injury): change release manager 1.78 on admission, baseline 1.1 2/2 ATN from sepsis and obstruction from stone change release manager down to 1.49 overnight with IVFs continue IVFS follow BMP avoid nephrotoxic agents (5) Anemia: hgb improved from previous at 9.1 and stable, no bleeding in urine since bilat ureteral stents recently removed also some anemia from previous blood loss from surgery in March and also 2/2 antineoplastic therapy which is now remote follow CBC (6) Presence of urostomy: (7) Type 2 diabetes mellitus: no treatment needed at this time unless becomes hyperglycemic > 180 (8) Hypertension: BPs low on admission losartan held for MOLLY as well HCTZ held last admission for hypokalemia, hypomagnesemia and low BPs (9) Urothelial carcinoma of bladder: received preop chemo and radical cystectomy follows with Oncology and Urology (10) Hypercholesterolemia: continue statin (11) IPMN (intraductal papillary mucinous neoplasm): f/u outpatient Plan Dispo-transfer to for perc nephrostomy tube Discharge Exam Constitutional WD/WN, vitals as above Respiratory normal respiratory effort, lungs clear to auscultation Cardiovascular RRR, no murmur, no edema Gastrointestinal (Abdomen) Inspection/Auscultation: + abdomen abnormal to inspection (urostomy bag in place) Percussion/Palpation: abdomen nontender Psychiatric A+Ox3, euthymic affect Updated Medication List Medication Instructions Recorded Confirmed Type rosuvastatin 20 mg tablet 20 mg PO QAM 10/23/22 05/22/23 History losartan 25 mg tablet 25 mg PO DAILY 03/20/23 05/22/23 History fexofenadine 180 mg tablet 180 mg PO DAILY PRN SEASONAL 04/01/23 05/22/23 History ALLERGIES Hospital Stay Data Consultations 05/22/23 22:50 ED Decision to Admit Stat 05/23/23 01:53 Consult Urology Routine Diagnostic Imagining Performed 05/22/23 23:35 CT Abd and Pelvis [CT abd pelvis wo con] Stat Pending Results Patient Have Any Pending Studies at Discharge: Yes (Blood and urine cultures, Hep C screening) Discharge Instructions Given to Patient (Per Discharging Provider) Transferred to [facility] Total Time Total Time Spent Total Time Spent (In Minutes): 75 min Coding Level of Care Code 36124 INP/OBS DISCH >30 MIN Diagnoses Sepsis A41.9 Hydronephrosis with obstructing calculus N13.2 Acute UTI N39.0 MOLLY (acute kidney injury) N17.9 Anemia D64.9 Anemia type: unspecified type Presence of urostomy Z93.6 Type 2 diabetes mellitus E11.9 Hypertension I10 Hypertension type: primary hypertension Urothelial carcinoma of bladder C67.9 Hypercholesterolemia E78.00 IPMN (intraductal papillary mucinous neoplasm) D49.0
[2023-05-23 23:12] LABS: A calco-baum cmplx NotReported Not Detected (NotDetected); Bact fragilis Not Reported Not Detected (NotDetected); C auris Not Reported Not Detected (NotDetected); Calbicans Not Reported Not Detected (NotDetected); Candida glabrata Not Reported Not Detected (NotDetected); Candida krusei Not Reported Not Detected (NotDetected); Cneoformans/gatti Not Reported Not Detected (NotDetected); Cparapsilosis Not Reported Not Detected (NotDetected); Ctropicalis Not Reported Not Detected (NotDetected); E cloacae compx Not Reported Not Detected (NotDetected); Efaecalis Not Reported Not Detected (NotDetected); Efaecium Not Reported Not Detected (NotDetected); Enterobacterales Not Reported Not Detected (NotDetected); Escherichia coli Not Reported Not Detected (NotDetected); H influenzae Not Reported Not Detected (NotDetected); K aerogenes Not Reported Not Detected (NotDetected); Koxytoca Not Reported Not Detected (NotDetected); Kpneumoniae grp Not Reported Not Detected (NotDetected); Lmonocyt Not Reported Not Detected (NotDetected); N meningitidis Not Reported Not Detected (NotDetected); P aeruginosa Not Reported Not Detected (NotDetected); Proteus spp Not Reported Not Detected (NotDetected); Salmonella spp Not Reported Not Detected (NotDetected); Smarcescens Not Reported Not Detected (NotDetected); Staph lugdunensis Not Reported Not Detected (NotDetected); Staph spp. Not Reported DETECTED (NotDetected); Staphaureus Not Reported Not Detected (NotDetected); Staphepi Not Reported DETECTED (NotDetected); Staphylococcus spp. DETECTED (NotDetected); Stenmaltophilia Not Reported Not Detected (NotDetected); Strep agal(GrpB) Not Reported Not Detected (NotDetected); Strep pneum Not Reported Not Detected (NotDetected); Strep pyog (GrpA) Not Reported Not Detected (NotDetected); Strep spp Not Reported Not Detected (NotDetected)
[2023-05-24 02:56] LABS: Staphylococcus epidermidis DETECTED (NotDetected); mecAC Resistant Gene DETECTED (NotDetected)
--- NOTE | 2023-05-24 23:16 | Electrocardiogram Report ---
Test Reason : Blood Pressure : / mmHG Vent. Rate : 095 BPM Atrial Rate : 095 BPM P-R Int : 130 ms QRS Dur : 072 ms QT Int : 310 ms P-R-T Axes : -20 028 041 degrees QTc Int : 389 ms Normal sinus rhythm Nonspecific T wave abnormality Abnormal ECG When compared with ECG of 01-APR-2023 11:47, Nonspecific T wave abnormality now evident in Anterior leads Confirmed by Harish Daniel ([id number]) on 05/24/2023 11:16:30 PM Referred By: REFERRED SELF Confirmed By:Harish Daniel
== END 2023-05-23 14:15 | disposition short-term general hospital (02) | DRG 872 ==
LOC: ED 21:31 → 2S 23:51 → SUATTDRO 23:51 → 2S 05-23 01:17

== ENCOUNTER 2023-06-21 12:28 | Inpatient (IN) ==
[2023-06-21] MEDS ORDERED: CEFEPIME 2,000 MG/20 ML VIAL IV STA (13:18)
[2023-06-21] MEDS ORDERED: SODIUM CHLORIDE 0.9% 1000ML 1,000 ML IV ONE (13:18)
[2023-06-21 13:34] LABS: Basophils # (auto) 0.02 K/uL (0-0.2); Basophils % (auto) 0.2 %; Eosinophils # (auto) 0.01 K/uL (0-0.50); Eosinophils % (auto) 0.1 %; Hematocrit (blood only) 31.5 % (42.0-52.0); Hemoglobin 10.6 g/dl (14.0-18.0); Immature Granulocytes # (auto) 0.07 K/uL (0.01-0.20); Immature Granulocytes % (auto) 0.6 %; Lymphocytes # (auto) 0.58 K/uL (1.2-3.4); Mean Corpuscular Hemoglobin 30.5 pg (25.0-34.0); Mean Corpuscular Hgb Conc 33.7 g/dL (32.0-36.0); Mean Corpuscular Volume 90.5 fL (80.0-100.0); Mean Platelet Volume 9.5 fL (9.4-12.4); Monocytes # (auto) 0.94 K/uL (0.11-0.59); Monocytes % (auto) 8.2 %; Neutrophils # (auto) 9.91 K/uL (1.40-6.50); Neutrophils % (auto) 85.9 %; Platelet Count 173 K/uL (130-400); RDW Coefficient of Variation 14.6 % (11.5-14.5); RDW Standard Deviation 47.9 fL (36.4-46.3); Red Blood Count 3.48 M/uL (4.70-6.10); White Blood Count 11.53 K/ul (4.8-10.8)
--- NOTE | 2023-06-21 13:44 | Emergency Department Note ---
Impression & Plan Acute pyelonephritis, Anemia, Fever, Leukocytosis, Complication of nephrostomy, Hypomagnesemia ED Provider Note NAME: ELLIOTT CANDELARIO AGE: 62 SEX: M : 1960 ARRIVES VIA: Walk-In INFORMANT: [Patient] ED PROVIDER(S): [Adin Munguia MD] CHIEF COMPLAINT: Fever HISTORY OF PRESENT ILLNESS: The patient is a 62-year-old male with a history of bladder cancer and a functioning urostomy who presents to the ER with a fever that was noticed this morning. Over the last few days, he has had some difficulty with drainage from his nephrostomy on the left. He has had to use a syringe to get things opened. The patient states that he has had some left flank pain at times. He does not have flank pain right now. The patient was at [facility] last month for a left ureteral stone that caused hydronephrosis. Nephrostomy tube was placed to release the pressure. He did have a urinary infection at that time and left the hospital on oral Bactrim, he is not currently on this medication. The patient states that he has not had nausea or vomiting. He has not had cough or congestion or respiratory complaints. He was told to report to the ED because of his recent history and his fever PMHx/PSHx: See Below SOCIAL HISTORY: See Below. PHYSICAL EXAM: GENERAL: Patient is in no acute distress. HEENT: No acute trauma, normocephalic atraumatic, mucous membranes moist, no nasal congestion. NECK: No stridor, no adenopathy, no meningismus, trachea is midline. LUNGS: Clear to auscultation bilaterally, no wheeze, no rhonchi, breath sounds equal. HEART: Without murmurs gallops or rubs, regular rate and rhythm. ABDOMEN: Soft, nontender, bowel sounds positive, no peritonitis. Urostomy on t he right noted EXTREMITIES: No cyanosis or edema, full range of motion of all the joints without pain or difficulty, no signs for acute trauma. NEUROLOGIC: Oriented x 3, no acute motor or sensory deficits, no focal weakness. SKIN: No rash, no jaundice, no diaphoresis. Back: There is a nephrostomy tube on the left consistent with his recent history DIFFERENTIAL DIAGNOSIS: Bacteremia or sepsis, pyelonephritis, urinary obstruction, renal failure, viral illness, among others. EMERGENCY DEPARTMENT COURSE/PROCEDURES: Prior/Outside records reviewed: Recent [place] discharge summary. ECG per my interpretation: Indication was possible sepsis. The ECG shows a normal sinus rhythm with a rate of 84. There is no ST elevation, no PVCs. The QTc is 413. Continuous Cardiac Monitoring per my interpretation: An order was placed for continuous cardiac monitoring. The monitor shows a rate of 76 with normal sinus rhythm. Critical Care Note: I have personally spent 43 minutes of critical care time in the direct management of this patient. This includes bedside care, interpretation of diagnostic studies, and testing, discussion with consultants, patient, and family members, and other required patient management activities. This 43 minutes is in excess of all separately billable procedures. MEDICAL DECISION MAKING: There is a subtle leukocytosis, this certainly could be consistent with infection. The patient is anemic however, he has a known anemia and his value today is actually improved compared to recent testing. There is a normal platelet count. Creatinine is slightly elevated but appears stable looking back at recent testing. Magnesium was somewhat low at 1.5. Lactic acid level was not elevated making sepsis less likely. No concerning liver enzyme elevation. Procalcitonin level was not elevated making serious bacterial infection less likely. Urinalysis was consistent with infection. A urine sample was taken from his urostomy site as well as his nephrostomy, both appeared infected. Respiratory bio fire was completely negative. Abdominal and pelvis CT showed that the left nephrostomy tube was in position. No hydronephrosis. There was some edema of the left kidney. ECG showed a normal sinus rhythm, no ischemia or dysrhythmia. On exam, the patient was not toxic in appearance. Patient received IV saline, liter. He received IV magnesium and IV cefepime. I talked to the patient about his findings. I did call and speak with Dr. Vargas of urology at [facility]. The patient does not need emergent transfer as there is no need to adjust or redo the nephrostomy tube. The patient requires hospitalization and IV antibiotic therapy which can be accomplished at our facility. I did speak with case management, the on-call hospitalist was consulted. In short, the patient appears to have pyelonephritis. We await urine culture results. DISPOSITION: Patient's presentation and findings warrant a hospital stay. Past Med/Surg History Medical History Borderline blood pressure No meds Hypercholesterolemia IPMN (intraductal papillary mucinous neoplasm) Kidney stones Hx, passed without intervention Presence of urostomy Seasonal allergies Urothelial carcinoma of bladder Surgical History H/O transurethral resection of bladder tumor (TURBT) TURBT (Transurethral Resection of the Bladder Tumor) (medium)- Erlin Rg MD 2021 History of anesthesia problem ACL surgery - Slow to wake, required overnight stay- discharged next day without issue Shoulder surgery - he had no problems History of arthroscopy of left shoulder 2015 Hx of arthroscopic knee surgery right knee acl 1992 Hx of colonoscopy 2014? Port-A-Cath in place (12/04/22) Insertion Access Port Left Subclavian with Fluoroscopy(Left) - Francisco Basilio, DO Family History Father Myocardial infarction Hypertension Heart disease Aunt Diabetes Other Cancer Denies family history of Colon cancer Ovarian cancer Prostate cancer Breast cancer Social History Smoking Status: Never smoker Tobacco Type: Cigars and Smokeless Tobacco (Dip or Chew) Second Hand Exposure: No; Do You Dip or Chew Tobacco: No; Hx Alcohol Use: Yes Alcohol type: beer Alcohol Intake Frequency: 4 or More x per/Week Alcohol Intake Frequency Comment: 2 per day Hx Substance Use: No Preferred Language: Singaporean Communication Ability: Effective Visual Impairment: Limited Hearing Ability: Normal Bulk Mail Technician Required: No Beliefs That Will Affect Care: None marital status: Current Living Situation: Family current occupational status: 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 How many Children do You have: 1 Feels Safe at Home: Yes Childhood Exposure to Second-Hand Smoke: No Diet: regular during the past year weight has: decreased > 10 lbs Dental Care, Regularly: Yes Physical Activity Frequency: 3-4 Times per Week Seatbelt Use: always Sunscreen Use: Yes Assistive Devices: None Allergies Allergies Allergy/AdvReac Type Severity Reaction Status Date / Time pollen extracts Allergy Intermediate ITCHY Verified 05/22/23 22:14 EYES, SNEEZING, CONGESTION Home Meds Home Medications Medication Instructions Recorded Confirmed losartan 25 mg tablet 25 mg PO DAILY 03/20/23 06/21/23 fexofenadine 180 mg tablet 180 mg PO DAILY PRN SEASONAL 04/01/23 06/21/23 ALLERGIES sodium chloride 0.9 % (flush) (BD See Rx Instructions .Route .COMPLEX 06/21/23 06/21/23 PosiFlush Normal Saline 0.9 % injection syringe) Previous Rx's Medication Instructions Recorded rosuvastatin 20 mg tablet 20 mg PO QAM #90 tabs 05/27/23 Results & Data (ED) Vital Signs Vital Signs - 24 hr 06/21/23 12:41 06/21/23 13:32 06/21/23 13:33 Temperature 37.3 C Temperature Source Temporal Artery Scan Pulse Rate 99 H 76 Pulse Rate [Apical] 77 Pulse Rhythm [Apical] Pulse Strength [Apical] Respiratory Rate 20 16 Respiratory Effort / Characteristics Non-Labored Respiratory Depth Normal Respiratory Pattern Blood Pressure 101/61 Blood Pressure [Right Arm] 129/64 Blood Pressure Mean 74 Blood Pressure Mean [Right Arm] 85 Blood Pressure Position [Right Arm] Pulse Oximetry 95 96 Oxygen Delivery Method Room Air Room Air Sepsis Recent Fever Within 48 Hours No Sepsis New/Unexplained Change in Mental Status N/A Sepsis Action Taken by Nursing No Action Required 06/21/23 15:00 Temperature Temperature Source Pulse Rate Pulse Rate [Apical] 70 Pulse Rhythm [Apical] Regular Pulse Strength [Apical] Normal Respiratory Rate 19 Respiratory Effort / Characteristics Non-Labored Spontaneous Respiratory Depth Normal Respiratory Pattern Regular Blood Pressure Blood Pressure [Right Arm] 130/57 L Blood Pressure Mean Blood Pressure Mean [Right Arm] 81 Blood Pressure Position [Right Arm] Semi-fowlers Pulse Oximetry 97 Oxygen Delivery Method Room Air Sepsis Recent Fever Within 48 Hours Sepsis New/Unexplained Change in Mental Status Sepsis Action Taken by [facility] Medications Current Medication List: was personally reviewed by me Laboratory Data Attestation: I reviewed the patient's lab results. 06/21/23 13:05 06/21/23 13:05 Lab Results 06/21/23 06/21/23 06/21/23 Range/Units 13:05 13:05 13:05 WBC 11.53 H (4.8-10.8) K/ul RBC 3.48 L (4.70-6.10) M/uL Hgb 10.6 L (14.0-18.0) g/dl Hct 31.5 L (42.0-52.0) % MCV 90.5 (80.0-100.0) fL MCH 30.5 (25.0-34.0) pg MCHC 33.7 (32.0-36.0) g/dL RDW Std Deviation 47.9 H (36.4-46.3) fL RDW Coeff of Mara 14.6 H (11.5-14.5) % Plt Count 173 (130-400) K/uL MPV 9.5 (9.4-12.4) fL Immature Gran % (Auto) 0.6 % Neut % (Auto) 85.9 % Lymph % (Auto) 5.0 % [place] % (Auto) 8.2 % Eos % (Auto) 0.1 % Baso % (Auto) 0.2 % Neut # (Auto) 9.91 H (1.40-6.50) K/uL Lymph # (Auto) 0.58 L (1.2-3.4) K/uL [place] # (Auto) 0.94 H (0.11-0.59) K/uL Eos # (Auto) 0.01 (0-0.50) K/uL Baso # (Auto) 0.02 (0-0.2) K/uL Immature Gran # (Auto) 0.07 (0.01-0.20) K/uL Sodium 135 L (136-145) mmol/L Potassium 3.9 (3.5-5.1) mmol/L Chloride 100 (98-107) mmol/L Carbon Dioxide 26 (21-32) mmol/L Anion Gap 9 (3-11) BUN 23 (6-23) mg/dl Creatinine 1.48 H (0.6-1.4) mg/dl Est Cr Clr Drug Dosing 41.3 ml/min Est GFR ( Amer) 57.5 ml/min Est GFR (Non-Af Amer) 49.6 ml/min BUN/Creatinine Ratio 15.5 (10-20) Glucose 154 H (70-99(Fasting)) mg/dl Lactate (0.4-2.0) mmol/L Calcium 9.7 (8.6-10.3) mg/dl Magnesium 1.5 L (1.7-2.4) mg/dl Total Bilirubin 0.7 (0.2-1.0) mg/dl AST 9 L (13-39) U/L ALT 9 (7-52) U/L Alkaline Phosphatase 47 (34-104) U/L Total Protein 7.5 (6.0-8.3) gm/dl Albumin 4.1 (3.4-5.0) gm/dl Globulin 3.4 (2.5-4.0) gm/dl Albumin/Globulin Ratio 1.2 (0.9-2) Procalcitonin 0.33 (0-0.5) ng/ml Urine Color Urine Appearance (Clear) Urine pH (4.5-7.5) Ur Specific [place] (1.000-1.030) Urine Protein (Negative) Urine Glucose (UA) (Negative) Urine Ketones (Negative) Urine Blood (Negative) Urine Nitrite (Negative) Urine Bilirubin (Negative) Urine Urobilinogen (Negative) Ur Leukocyte Esterase (Negative) Urine WBC (Auto) (0-5) /hpf Urine RBC (Auto) (0-4) /hpf U Hyaline Cast (Auto) (0-5) /lpf U Epithel Cells (Auto) (0-5) /lpf Urine Bacteria (Auto) (Negative) Adenovirus (PCR) (NotDetected) B. pertussis DNA (PCR) (NotDetected) B.parapertussis DNA PCR (NotDetected) C. pneumoniae DNA (PCR) (NotDetected) Coronavirus OC43 (PCR) (NotDetected) Coronavirus HKU1 (PCR) (NotDetected) Coronavirus 229E (PCR) (NotDetected) SARS-CoV-2 (PCR) (NotDetected) Coronavirus NL63 (PCR) (NotDetected) Human Metapneumovir PCR (NotDetected) Influenza Type A (PCR) (NotDetected) Influenza Type B (PCR) (NotDetected) M. pneumoniae (PCR) (NotDetected) Parainfluenza 1 (PCR) (NotDetected) Parainfluenza 2 (PCR) (NotDetected) Parainfluenza 3 (PCR) (NotDetected) Parainfluenza 4 (PCR) (NotDetected) RSV (PCR) (NotDetected) Entero/Rhino (PCR) (NotDetected) 06/21/23 06/21/23 06/21/23 Range/Units 14:02 14:10 15:00 WBC (4.8-10.8) K/ul RBC (4.70-6.10) M/uL Hgb (14.0-18.0) g/dl Hct (42.0-52.0) % MCV (80.0-100.0) fL MCH (25.0-34.0) pg MCHC (32.0-36.0) g/dL RDW Std Deviation (36.4-46.3) fL RDW Coeff of Mara (11.5-14.5) % Plt Count (130-400) K/uL MPV (9.4-12.4) fL Immature Gran % (Auto) % Neut % (Auto) % Lymph % (Auto) % [place] % (Auto) % Eos % (Auto) % Baso % (Auto) % Neut # (Auto) (1.40-6.50) K/uL Lymph # (Auto) (1.2-3.4) K/uL [place] # (Auto) (0.11-0.59) K/uL Eos # (Auto) (0-0.50) K/uL Baso # (Auto) (0-0.2) K/uL Immature Gran # (Auto) (0.01-0.20) K/uL Sodium (136-145) mmol/L Potassium (3.5-5.1) mmol/L Chloride (98-107) mmol/L Carbon Dioxide (21-32) mmol/L Anion Gap (3-11) BUN (6-23) mg/dl Creatinine (0.6-1.4) mg/dl Est Cr Clr Drug Dosing ml/min Est GFR ( Amer) ml/min Est GFR (Non-Af Amer) ml/min BUN/Creatinine Ratio (10-20) Glucose (70-99(Fasting)) mg/dl Lactate 1.4 (0.4-2.0) mmol/L Calcium (8.6-10.3) mg/dl Magnesium (1.7-2.4) mg/dl Total Bilirubin (0.2-1.0) mg/dl AST (13-39) U/L ALT (7-52) U/L Alkaline Phosphatase (34-104) U/L Total Protein (6.0-8.3) gm/dl Albumin (3.4-5.0) gm/dl Globulin (2.5-4.0) gm/dl Albumin/Globulin Ratio (0.9-2) Procalcitonin (0-0.5) ng/ml Urine Color Yellow Urine Appearance Turbid A (Clear) Urine pH 5.5 (4.5-7.5) Ur Specific [place] 1.016 (1.000-1.030) Urine Protein 1+ H (Negative) Urine Glucose (UA) Negative (Negative) Urine Ketones Negative (Negative) Urine Blood 1+ H (Negative) Urine Nitrite Positive A (Negative) Urine Bilirubin Negative (Negative) Urine Urobilinogen Negative (Negative) Ur Leukocyte Esterase 3+ H (Negative) Urine WBC (Auto) >30 H (0-5) /hpf Urine RBC (Auto) 0-4 (0-4) /hpf U Hyaline Cast (Auto) 1-5 (0-5) /lpf U Epithel Cells (Auto) 10-20 H (0-5) /lpf Urine Bacteria (Auto) 1+ H (Negative) Adenovirus (PCR) Not Detected (NotDetected) B. pertussis DNA (PCR) Not Detected (NotDetected) B.parapertussis DNA PCR Not Detected (NotDetected) C. pneumoniae DNA (PCR) Not Detected (NotDetected) Coronavirus OC43 (PCR) Not Detected (NotDetected) Coronavirus HKU1 (PCR) Not Detected (NotDetected) Coronavirus 229E (PCR) Not Detected (NotDetected) SARS-CoV-2 (PCR) Not Detected (NotDetected) Coronavirus NL63 (PCR) Not Detected (NotDetected) Human Metapneumovir PCR Not Detected (NotDetected) Influenza Type A (PCR) Not Detected (NotDetected) Influenza Type B (PCR) Not Detected (NotDetected) M. pneumoniae (PCR) Not Detected (NotDetected) Parainfluenza 1 (PCR) Not Detected (NotDetected) Parainfluenza 2 (PCR) Not Detected (NotDetected) Parainfluenza 3 (PCR) Not Detected (NotDetected) Parainfluenza 4 (PCR) Not Detected (NotDetected) RSV (PCR) Not Detected (NotDetected) Entero/Rhino (PCR) Not Detected (NotDetected) 06/21/23 Range/Units 15:53 WBC (4.8-10.8) K/ul RBC (4.70-6.10) M/uL Hgb (14.0-18.0) g/dl Hct (42.0-52.0) % MCV (80.0-100.0) fL MCH (25.0-34.0) pg MCHC (32.0-36.0) g/dL RDW Std Deviation (36.4-46.3) fL RDW Coeff of Mara (11.5-14.5) % Plt Count (130-400) K/uL MPV (9.4-12.4) fL Immature Gran % (Auto) % Neut % (Auto) % Lymph % (Auto) % [place] % (Auto) % Eos % (Auto) % Baso % (Auto) % Neut # (Auto) (1.40-6.50) K/uL Lymph # (Auto) (1.2-3.4) K/uL [place] # (Auto) (0.11-0.59) K/uL Eos # (Auto) (0-0.50) K/uL Baso # (Auto) (0-0.2) K/uL Immature Gran # (Auto) (0.01-0.20) K/uL Sodium (136-145) mmol/L Potassium (3.5-5.1) mmol/L Chloride (98-107) mmol/L Carbon Dioxide (21-32) mmol/L Anion Gap (3-11) BUN (6-23) mg/dl Creatinine (0.6-1.4) mg/dl Est Cr Clr Drug Dosing ml/min Est GFR ( Amer) ml/min Est GFR (Non-Af Amer) ml/min BUN/Creatinine Ratio (10-20) Glucose (70-99(Fasting)) mg/dl Lactate (0.4-2.0) mmol/L Calcium (8.6-10.3) mg/dl Magnesium (1.7-2.4) mg/dl Total Bilirubin (0.2-1.0) mg/dl AST (13-39) U/L ALT (7-52) U/L Alkaline Phosphatase (34-104) U/L Total Protein (6.0-8.3) gm/dl Albumin (3.4-5.0) gm/dl Globulin (2.5-4.0) gm/dl Albumin/Globulin Ratio (0.9-2) Procalcitonin (0-0.5) ng/ml Urine Color Yellow Urine Appearance Cloudy A (Clear) Urine pH 6.0 (4.5-7.5) Ur Specific [place] 1.017 (1.000-1.030) Urine Protein Trace H (Negative) Urine Glucose (UA) Negative (Negative) Urine Ketones Negative (Negative) Urine Blood Trace H (Negative) Urine Nitrite Positive A (Negative) Urine Bilirubin Negative (Negative) Urine Urobilinogen Negative (Negative) Ur Leukocyte Esterase 1+ H (Negative) Urine WBC (Auto) >30 H (0-5) /hpf Urine RBC (Auto) 0-4 (0-4) /hpf U Hyaline Cast (Auto) 0 (0-5) /lpf U Epithel Cells (Auto) 0-5 (0-5) /lpf Urine Bacteria (Auto) 1+ H (Negative) Adenovirus (PCR) (NotDetected) B. pertussis DNA (PCR) (NotDetected) B.parapertussis DNA PCR (NotDetected) C. pneumoniae DNA (PCR) (NotDetected) Coronavirus OC43 (PCR) (NotDetected) Coronavirus HKU1 (PCR) (NotDetected) Coronavirus 229E (PCR) (NotDetected) SARS-CoV-2 (PCR) (NotDetected) Coronavirus NL63 (PCR) (NotDetected) Human Metapneumovir PCR (NotDetected) Influenza Type A (PCR) (NotDetected) Influenza Type B (PCR) (NotDetected) M. pneumoniae (PCR) (NotDetected) Parainfluenza 1 (PCR) (NotDetected) Parainfluenza 2 (PCR) (NotDetected) Parainfluenza 3 (PCR) (NotDetected) Parainfluenza 4 (PCR) (NotDetected) RSV (PCR) (NotDetected) Entero/Rhino (PCR) (NotDetected) Administered Medications Vancomycin HCl 1,250 mg/ (Sodium Chloride) 275 mls @ 200 mls/hr IV ONE STA Stop: 06/21/23 18:35 Last Admin: 06/21/23 17:42 Dose: 200 mls/hr Documented By: AB Discontinued Medications Cefepime HCl (Maxipime) 2,000 mg in 20 mls @ 5 mls/min IV NOW STA; Protocol Stop: 06/21/23 13:21 Last Admin: 06/21/23 13:34 Dose: 5 mls/min Documented By: BILL Sodium Chloride (Nss 1000ml) 1,000 mls @ 999 mls/hr IV .Q1H1M ONE Stop: 06/21/23 14:18 Last Infusion: 06/21/23 14:33 Dose: 0 mls/hr Documented By: Admin: 06/21/23 13:38 Dose: 999 mls/hr Documented By: BILL Magnesium Sulfate/Dextrose (Magnesium Sulfate / D5w) 1 gm in 100 mls @ 100 mls/hr IV NOW STA Stop: 06/21/23 14:54 Last Infusion: 06/21/23 15:05 Dose: 0 mls/hr Documented By: Admin: 06/21/23 14:06 Dose: 100 mls/hr Documented By: NAMITA Imaging Data Radiologist's Impression: Abdomen/Pelvis CT 06/21/23 13:[address] WITHOUT CONTRAST CT DOSE: 679.51 mGy.cm HISTORY: flank pain TECHNIQUE: Multiaxial CT images of the abdomen and pelvis were performed without contrast. A dose lowering technique was utilized adhering to the principles of ALARA. COMPARISON STUDY: Abdomen and pelvis CT 05/22/2023. FINDINGS: Linear scarlike density noted within the right lung base. No pneumoperitoneum. No pneumatosis. Bilateral L5 spondylolysis with associated grade 1 anterolisthesis. No acute fractures identified. Punctate calcifications again noted within the right hepatic lobe. The unenhanced spleen and adrenal glands are unremarkable. There are few punctate gallstones identified. No gallbladder wall thickening. There are scattered punctate calcifications within the pancreas, unchanged. There is a stable 1 cm hypodense lesion within the pancreatic tail on image 74. This favors a cystic lesion such as a side branch intraductal papillary mucinous neoplasm. No retroperitoneal lymphadenopathy. Normal caliber abdominal aorta. No right renal stones are right-sided hydronephrosis. Interval placement left percutaneous nephrostomy tube. This appears in good position. No left-sided hydronephrosis. There are 2 stones w ithin the proximal left ureter measuring 12 and 10 mm. Left perinephric edema persists. Prior cystoprostatectomy with right lower quadrant ileal loop diversion. Suboptimal evaluation for bowel pathology due to the lack of intravenous and oral contrast. However, there is no definite bowel wall thicke jaz or obstruction. Colonic diverticulosis. No evidence for acute diverticulitis. Moderate fecal retention. Normal appendix. No dilated loops of bowel to suggest an obstruction. IMPRESSION: 1. There are now 2 stones located within the proximal left ureter the largest measuring 12 mm. 2. However, no left-sided hydronephrosis due to interval placement of a left- sided percutaneous nephrostomy tube. This appears in good position. 3. Moderate left perinephric edema persists. 4. Cholelithiasis. 5. No definite bowel wall thickening or obstruction. 6. Moderate fecal retention. 7. Postoperative changes as described above. 8. A stable 1 cm hypodense cystic lesion within the pancreatic tail. This favors a small side branch intraductal papillary mucinous neoplasm. 9. Additional findings as described above ACT 112: Negative or not required by law. Electronically signed by: Adolfo Mckenzie M.D. 06/21/2023 2:37 PM Discharge Plan Visit Data Chief Complaint: Fever Stated Complaint: FEVER,FLANK PAIN ED Provider: Adin Munguia Discharge Problem: Acute pyelonephritis, Anemia, Fever, Leukocytosis, Complication of nephrostomy, Hypomagnesemia Patient Disposition: Admitted As Inpatient Condition: Fair Forms Stand Alone Forms: My [facility] [employer] Prescriptions Prescriptions: No Action rosuvastatin 20 mg tablet 20 mg PO QAM Qty: 90 3RF losartan 25 mg tablet 25 mg PO DAILY Hold Instructions: Resume on 05/30/23. fexofenadine 180 mg Tablet 180 mg PO DAILY PRN (Reason: SEASONAL ALLERGIES) sodium chloride 0.9 % (flush) [BD PosiFlush Normal Saline 0.9] Syringe See Rx Instructions .ROUTE .COMPLEX Rx Instructions: as directed Referrals Referrals: Griel,Temo C. III, CASE SUPERVISOR [Primary Care Provider] -
[2023-06-21 13:51] LABS: Albumin Globulin Ratio 1.2 (0.9-2); Albumin Level 4.1 gm/dl (3.4-5.0); BUN Creatinine Ratio 15.5 (10-20); Bilirubin,Total 0.7 mg/dl (0.2-1.0); Calcium 9.7 mg/dl (8.6-10.3); Creatinine Clr Calc Pharmacy 41.3 ml/min; Est GFR (African American) 57.5 ml/min; Est GFR (Non-African American) 49.6 ml/min; Globulin 3.4 gm/dl (2.5-4.0); Magnesium 1.5 mg/dl (1.7-2.4); Potassium 3.9 mmol/L (3.5-5.1); Total Protein 7.5 gm/dl (6.0-8.3)
[2023-06-21] MEDS ORDERED: MAGNESIUM SULFATE / D5W 1 GM/100 ML BAG IV STA (13:55)
--- NOTE | 2023-06-21 14:39 | CT Scan Report ---
ABDOMEN AND PELVIS CT WITHOUT CONTRAST CT DOSE: 679.51 mGy.cm HISTORY: flank pain TECHNIQUE: Multiaxial CT images of the abdomen and pelvis were performed without contrast. A dose lo wering technique was utilized adhering to the principles of ALARA. COMPARISON STUDY: Abdomen and pelvis CT 05/22/2023. FINDINGS: Linear scarlike density noted within the right lung base. No pneumoperitoneum. No pneumatos is. Bilateral L5 spondylolysis with associated grade 1 anterolisthesis. No acute fractures identified . Punctate calcifications again noted within the right hepatic lobe. The unenhanced spleen and adrena l glands are unremarkable. There are few punctate gallstones identified. No gallbladder wall thickeni ng. There are scattered punctate calcifications within the pancreas, unchanged. There is a stable 1 c m hypodense lesion within the pancreatic tail on image 74. This favors a cystic lesion such as a side branch intraductal papillary mucinous neoplasm. No retroperitoneal lymphadenopathy. Normal caliber a bdominal aorta. No right renal stones are right-sided hydronephrosis. Interval placement left percuta neous nephrostomy tube. This appears in good position. No left-sided hydronephrosis. There are 2 ston es within the proximal left ureter measuring 12 and 10 mm. Left perinephric edema persists. Prior cys toprostatectomy with right lower quadrant ileal loop diversion. Suboptimal evaluation for bowel patho logy due to the lack of intravenous and oral contrast. However, there is no definite bowel wall thick ening or obstruction. Colonic diverticulosis. No evidence for acute diverticulitis. Moderate fecal re tention. Normal appendix. No dilated loops of bowel to suggest an obstruction. IMPRESSION: 1. There are now 2 stones located within the proximal left ureter the largest measuring 12 mm. 2. However, no left-sided hydronephrosis due to interval placement of a left-sided percutaneous nephr ostomy tube. This appears in good position. 3. Moderate left perinephric edema persists. 4. Cholelithiasis. 5. No definite bowel wall thickening or obstruction. 6. Moderate fecal retention. 7. Postoperative changes as described above. 8. A stable 1 cm hypodense cystic lesion within the pancreatic tail. This favors a small side branch intraductal papillary mucinous neoplasm. 9. Additional findings as described above ACT 112: Negative or not required by law. Electronically signed by: Adolfo Mckenzie M.D. 06/21/2023 2:37 PM
[2023-06-21 15:19] LABS: Adenovirus PCR Not Detected (NotDetected); Bordetella parapertussis PCR Not Detected (NotDetected); Bordetella pertussis PCR Not Detected (NotDetected); Chlamydia pneumoniae PCR Not Detected (NotDetected); Coronavirus 229E PCR Not Detected (NotDetected); Coronavirus CoV-2 (COVID19)PCR Not Detected (NotDetected); Coronavirus HKU1 PCR Not Detected (NotDetected); Coronavirus NL63 PCR Not Detected (NotDetected); Coronavirus OC43PCR Not Detected (NotDetected); Human Metapneumovirus PCR Not Detected (NotDetected); Influenza A PCR Not Detected (NotDetected); Influenza B PCR Not Detected (NotDetected); Mycoplasma pneumoniae PCR Not Detected (NotDetected); Parainfluenza Virus 1 PCR Not Detected (NotDetected); Parainfluenza Virus 2 PCR Not Detected (NotDetected); Parainfluenza Virus 3 PCR Not Detected (NotDetected); Parainfluenza Virus 4 PCR Not Detected (NotDetected); Respiratory Syncytial VirusPCR Not Detected (NotDetected); Rhinovirus/Enterovirus PCR Not Detected (NotDetected)
[2023-06-21 15:45] LABS: Appearance Urine Turbid (Clear); Bacteria Urine Automated 1+ (Negative); Bilirubin Urine Negative (Negative); Blood Urine 1+ (Negative); Color Urine Yellow; Glucose Urine UA Negative (Negative); Ketones Urine Negative (Negative); Leukocyte Esterase Urine 3+ (Negative); Nitrite Urine Positive (Negative); Protein Urine 1+ (Negative); RBC Urine Automated 0-4 /hpf (0-4); Specific Gravity Urine 1.016 (1.000-1.030); Urobilinogen Urine Negative (Negative); WBC Urine Automated >30 /hpf (0-5); pH Urine 5.5 (4.5-7.5)
[2023-06-21 16:10] LABS: Appearance Urine Cloudy (Clear); Bilirubin Urine Negative (Negative); Blood Urine Trace (Negative); Color Urine Yellow; Epithelial Cell Urine Auto 0-5 /lpf (0-5); Glucose Urine UA Negative (Negative); Ketones Urine Negative (Negative); Leukocyte Esterase Urine 1+ (Negative); Nitrite Urine Positive (Negative); Protein Urine Trace (Negative); RBC Urine Automated 0-4 /hpf (0-4); Specific Gravity Urine 1.017 (1.000-1.030); Urobilinogen Urine Negative (Negative); WBC Urine Automated >30 /hpf (0-5)
[2023-06-21 16:32] LABS: Cast Urine Automated 0 /lpf (0-5)
[2023-06-21 16:33] LABS: Bacteria Urine Automated 1+ (Negative)
[2023-06-21] MEDS ORDERED: VANCOMYCIN CONSULT ACTIVE PRN (17:04)
--- NOTE | 2023-06-21 17:07 | History & Physical Report ---
Date of Service June 21, 2023 Assessment & Plan (1) Urinary tract infection associated with nephrostomy catheter: Plan: Urine obtained from the left-sided nephrostomy tube is suspicious for UTI. Given his flank pain he may have pyelonephritis on that side. s/p cefepime in ER - will continue such. add IV Vancomycin for MRSA and enterococcal coverage. Follow urine and blood cultures. The ER physician contacted [facility] by phone. CT of the abd/pelvis was reviewed with urology there. As the tube is not obstructed urology at [facility] advised Rx of UTI; transfer to [facility] not needed at this time. IVF. Pain meds. (2) Acute pyelonephritis: Plan: left-sided, suspected. IV cefepime + IV vancomycin. Await urine culture. Follow blood cultures. Pain control. IVF. (3) Presence of urostomy: Plan: Functioning well. Created 03/12/23. (4) Acute kidney injury: Plan: baseline Cr 1.1 today's Cr 1.5 2nd to #1, decreased PO intake today, etc. Isotonic fluids, repeat BMP am. (5) Urothelial carcinoma of bladder: Plan: s/p cystectomy 03/12/23 with ileal conduit/urostomy creation - [facility]. followed by chemotherapy. (6) Calculus of proximal left ureter: Plan: May 2023, s/p nephrostomy tube placement at [facility]. Nephrostomy tube remains. Was to have f/u with [facility] in the next week to discuss stone treatment. (7) Hypertension: Plan: Hold losartan due to mild MOLLY. (8) Hypercholesterolemia: Plan: Continue crestor. (9) Hypomagnesemia: Plan: s/p IV magnesium sulfate in ER. repeat level am. (10) Anemia: Plan: 2nd to recent surgeries, blood draws, etc. Repeat CBC am. (11) DVT prophylaxis: Plan: lovenox 40mg daily. Plan patient's updated at bedside. History of Present Illness Chief Complaint: fever Primary Care Provider: Temo Aleman, III, CONTRACTS ATT[employer]NEY 62yo male with history of bladder cancer s/p cystectomy with ileal conduit/urostomy formation on 03/12/23 followed by chemotherapy, recent left- sided kidney stones s/p percutaneous nephrostomy tube placement at [facility], and hyperlipidemia presents with fever of 102.5 this am, intermittent back pain over the left kidney for a few days, and decreased nephrostomy tube output for about 4 days. The urine has had a foul odor as well. Eating/drinking normally. Denies rigors, URI symptoms, nausea, vomiting, or diarrhea. Denies abdominal pain. Urostomy has been functioning normally. Allergies Allergy/AdvReac Type Severity Reaction Status Date / Time pollen extracts Allergy Intermediate ITCHY Verified 05/22/23 22:14 EYES, SNEEZING, CONGESTION Home Medications Medication Instructions Recorded Confirmed Type losartan 25 mg tablet 25 mg PO DAILY 03/20/23 06/21/23 History fexofenadine 180 mg tablet 180 mg PO DAILY PRN SEASONAL 04/01/23 06/21/23 History ALLERGIES rosuvastatin 20 mg tablet 20 mg PO QAM #90 tabs 05/27/23 06/21/23 Rx sodium chloride 0.9 % (flush) (BD See Rx Instructions .Route .COMPLEX 06/21/23 06/21/23 History PosiFlush Normal Saline 0.9 % injection syringe) Past Med/Surg History Medical History Borderline blood pressure No meds Hypercholesterolemia IPMN (intraductal papillary mucinous neoplasm) Kidney stones Hx, passed without intervention Presence of urostomy Seasonal allergies Urothelial carcinoma of bladder Surgical History H/O total cystectomy 03/12/23 - [facility] H/O transurethral resection of bladder tumor (TURBT) TURBT (Transurethral Resection of the Bladder Tumor) (medium)- Erlin Rg MD 2021 History of anesthesia problem ACL surgery - Slow to wake, required overnight stay- discharged next day without issue Shoulder surgery - he had no problems History of arthroscopy of left shoulder 2015 Hx of arthroscopic knee surgery right knee acl 1992 Hx of colonoscopy 2014? Port-A-Cath in place (12/04/22) Insertion Access Port Left Subclavian with Fluoroscopy(Left) - Francisco Basilio, DO S/P ileal conduit Urostomy creation -- 03/12/23, [facility] Family History Father Myocardial infarction Hypertension Heart disease Aunt Diabetes Other Cancer Denies family history of Colon cancer Ovarian cancer Prostate cancer Breast cancer Social History (Updated 06/22/23 @ 04:34 by Geovanni Astudillo MD) Smoking Status: Former smoker Tobacco Type: Cigars and Smokeless Tobacco (Dip or Chew) Second Hand Exposure: No; Do You Dip or Chew Tobacco: No; Hx Alcohol Use: Yes Alcohol type: beer Alcohol Intake Frequency: 4 or More x per/Week Alcohol Intake Frequency Comment: 2 per day Hx Substance Use: No Preferred Language: New Zealander Communication Ability: Effective Visual Impairment: Limited Hearing Ability: Normal Harness Worker Required: No Beliefs That Will Affect Care: None marital status: Current Living Situation: Spouse and Family current occupational status: retired 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 [place] How many Children do You have: 1 Feels Safe at Home: Yes Childhood Exposure to Second-Hand Smoke: No Diet: regular during the past year weight has: decreased > 10 lbs Dental Care, Regularly: Yes Physical Activity Frequency: 3-4 Times per Week Seatbelt Use: always Sunscreen Use: Yes Assistive Devices: None Review of Systems Review of Systems: gen - fever this am; no chills; normal appetite eyes - no visual disturbance HENT - no URI symptoms CV - no chest pain pulm - no cough, no dyspnea, no CUADRA GI - no abdominal pain; no nausea/emesis; +left flank pain - left-sided nephrostomy tube with decreased UOP x 4 days, now draining ok today; some foul-smelling urine; urostomy output wnl musculo - left sided back pain x several days skin - no rash endo - no diabetes neuro - minor headache psych - no depression or anxiety Physical Exam Physical Exam: gen - WD, WN, NAD, pleasant eyes - PERRL HENT - MMM, no lesions neck - no JVD, no lymph nodes heart - RRR, s1 s2, no murmur lungs - CTA b/l abd - soft NT ND BS+; urostomy present, stoma clean and healthy-appearing; clear yellow urine present in bag; nephrostomy tube left flank - minimal urine in collection bag ext - no edema, pulses 2+ b/l neuro - strength 5/5 x 4 exts; DTRs 2+ b/l skin - no rash psych - a/o x 3 Results & Data Results & Data Vital Signs (Past 12 Hours) Vital Signs Temp Pulse Pulse Resp BP BP Pulse Ox 06/21/23 15:00 70 19 130/57 L 97 06/21/23 13:33 76 06/21/23 13:32 77 16 129/64 96 06/21/23 12:41 37.3 C 99 H 20 101/61 95 O2 Del Method 06/21/23 15:00 Room Air 06/21/23 13:33 06/21/23 13:32 Room Air 06/21/23 12:41 Room Air Laboratory Results Laboratory Results - last 24 hr 06/21/23 06/21/23 13:05 13:05 WBC 11.53 H RBC 3.48 L Hgb 10.6 L Hct 31.5 L MCV 90.5 MCH 30.5 MCHC 33.7 RDW Std Deviation 47.9 H RDW Coeff of Mara 14.6 H Plt Count 173 MPV 9.5 Immature Gran % (Auto) 0.6 Neut % (Auto) 85.9 Lymph % (Auto) 5.0 [place] % (Auto) 8.2 Eos % (Auto) 0.1 Baso % (Auto) 0.2 Neut # (Auto) 9.91 H Lymph # (Auto) 0.58 L [place] # (Auto) 0.94 H Eos # (Auto) 0.01 Baso # (Auto) 0.02 Immature Gran # (Auto) 0.07 Sodium 135 L Potassium 3.9 Chloride 100 Carbon Dioxide 26 Anion Gap 9 BUN 23 Creatinine 1.48 H Est Cr Clr Drug Dosing 41.3 Est GFR ( Amer) 57.5 Est GFR (Non-Af Amer) 49.6 BUN/Creatinine Ratio 15.5 Glucose 154 H Lactate Calcium 9.7 Magnesium 1.5 L Total Bilirubin 0.7 AST 9 L ALT 9 Alkaline Phosphatase 47 Total Protein 7.5 Albumin 4.1 Globulin 3.4 Albumin/Globulin Ratio 1.2 06/21/23 06/21/23 06/21/23 13:05 14:02 14:10 WBC RBC Hgb Hct MCV MCH MCHC RDW Std Deviation RDW Coeff of Mara Plt Count MPV Immature Gran % (Auto) Neut % (Auto) Lymph % (Auto) [place] % (Auto) Eos % (Auto) Baso % (Auto) Neut # (Auto) Lymph # (Auto) [place] # (Auto) Eos # (Auto) Baso # (Auto) Immature Gran # (Auto) Sodium Potassium Chloride Carbon Dioxide Anion Gap BUN Creatinine Est Cr Clr Drug Dosing Est GFR ( Amer) Est GFR (Non-Af Amer) BUN/Creatinine Ratio Glucose Lactate 1.4 Calcium Magnesium Total Bilirubin AST ALT Alkaline Phosphatase Total Protein Albumin Globulin Albumin/Globulin Ratio Procalcitonin 0.33 Urine Color Urine Appearance Urine pH Ur Specific [place] Urine Protein Urine Glucose (UA) Urine Ketones Urine Blood Urine Nitrite Urine Bilirubin Urine Urobilinogen Ur Leukocyte Esterase Urine WBC (Auto) Urine RBC (Auto) U Hyaline Cast (Auto) U Epithel Cells (Auto) Urine Bacteria (Auto) Adenovirus (PCR) Not Detected B. pertussis DNA (PCR) Not Detected B.parapertussis DNA PCR Not Detected C. pneumoniae DNA (PCR) Not Detected Coronavirus OC43 (PCR) Not Detected Coronavirus HKU1 (PCR) Not Detected Coronavirus 229E (PCR) Not Detected SARS-CoV-2 (PCR) Not Detected Coronavirus NL63 (PCR) Not Detected Human Metapneumovir PCR Not Detected Influenza Type A (PCR) Not Detected Influenza Type B (PCR) Not Detected M. pneumoniae (PCR) Not Detected Parainfluenza 1 (PCR) Not Detected Parainfluenza 2 (PCR) Not Detected Parainfluenza 3 (PCR) Not Detected Parainfluenza 4 (PCR) Not Detected RSV (PCR) Not Detected Entero/Rhino (PCR) Not Detected 06/21/23 06/21/23 15:00 15:53 WBC RBC Hgb Hct MCV MCH MCHC RDW Std Deviation RDW Coeff of Mara Plt Count MPV Immature Gran % (Auto) Neut % (Auto) Lymph % (Auto) [place] % (Auto) Eos % (Auto) Baso % (Auto) Neut # (Auto) Lymph # (Auto) [place] # (Auto) Eos # (Auto) Baso # (Auto) Immature Gran # (Auto) Sodium Potassium Chloride Carbon Dioxide Anion Gap BUN Creatinine Est Cr Clr Drug Dosing Est GFR ( Amer) Est GFR (Non-Af Amer) BUN/Creatinine Ratio Glucose Lactate Calcium Magnesium Total Bilirubin AST ALT Alkaline Phosphatase Total Protein Albumin Globulin Albumin/Globulin Ratio Procalcitonin Urine Color Yellow Yellow Urine Appearance Turbid A Cloudy A Urine pH 5.5 6.0 Ur Specific [place] 1.016 1.017 Urine Protein 1+ H Trace H Urine Glucose (UA) Negative Negative Urine Ketones Negative Negative Urine Blood 1+ H Trace H Urine Nitrite Positive A Positive A Urine Bilirubin Negative Negative Urine Urobilinogen Negative Negative Ur Leukocyte Esterase 3+ H 1+ H Urine WBC (Auto) >30 H >30 H Urine RBC (Auto) 0-4 0-4 U Hyaline Cast (Auto) 1-5 0 U Epithel Cells (Auto) 10-20 H 0-5 Urine Bacteria (Auto) 1+ H 1+ H Adenovirus (PCR) B. pertussis DNA (PCR) B.parapertussis DNA PCR C. pneumoniae DNA (PCR) Coronavirus OC43 (PCR) Coronavirus HKU1 (PCR) Coronavirus 229E (PCR) SARS-CoV-2 (PCR) Coronavirus NL63 (PCR) Enterobacterales (PCR) E. coli (PCR) Human Metapneumovir PCR Influenza Type A (PCR) Influenza Type B (PCR) M. pneumoniae (PCR) Parainfluenza 1 (PCR) Parainfluenza 2 (PCR) Parainfluenza 3 (PCR) Parainfluenza 4 (PCR) RSV (PCR) Entero/Rhino (PCR) mcr-1 Colistin Res Gene PCR blaIMP Car res Gene PCR KPC-Carbap Res Gene PCR blaNDM Car Res Gene PCR OXA-48 Carbapenem Resis Gene (PCR) blaVIM Car Res Gene PCR CTX-M Gene Resistance (PCR) Bld Cult ID Panel PCR Diagnostic Findings Abdomen/Pelvis CT 06/21/23 13:[address] WITHOUT CONTRAST CT DOSE: 679.51 mGy.cm HISTORY: flank pain TECHNIQUE: Multiaxial CT images of the abdomen and pelvis were performed without contrast. A dose lowering technique was utilized adhering to the principles of ALARA. COMPARISON STUDY: Abdomen and pelvis CT 05/22/2023. FINDINGS: Linear scarlike density noted within the right lung base. No pneumoperitoneum. No pneumatosis. Bilateral L5 spondylolysis with associated grade 1 anterolisthesis. No acute fractures identified. Punctate calcifications again noted within the right hepatic lobe. The unenhanced spleen and adrenal glands are unremarkable. There are few punctate gallstones identified. No gallbladder wall thickening. There are scattered punctate calcifications within the pancreas, unchanged. There is a stable 1 cm hypodense lesion within the pancreatic tail on image 74. This favors a cystic lesion such as a side branch intraductal papillary mucinous neoplasm. No retroperitoneal lymphadenopathy. Normal caliber abdominal aorta. No right renal stones are right-sided hydronephrosis. Interval placement left percutaneous nephrostomy tube. This appears in good position. No left-sided hydronephrosis. There are 2 stones within the proximal left ureter measuring 12 and 10 mm. Left perinephric edema persists. Prior cystoprostatectomy with right lower quadrant ileal loop diversion. Suboptimal evaluation for bowel pathology due to the lack of intravenous and oral contrast. However, there is no definite bowel wall thickening or obstruction. Colonic diverticulosis. No evidence for acute diverticulitis. Moderate fecal retention. Normal appendix. No dilated loops of bowel to suggest an obstruction. IMPRESSION: 1. There are now 2 stones located within the proximal left ureter the largest measuring 12 mm. 2. However, no left-sided hydronephrosis due to interval placement of a left- sided percutaneous nephrostomy tube. This appears in good position. 3. Moderate left perinephric edema persists. 4. Cholelithiasis. 5. No definite bowel wall thickening or obstruction. 6. Moderate fecal retention. 7. Postoperative changes as described above. 8. A stable 1 cm hypodense cystic lesion within the pancreatic tail. This favors a small side branch intraductal papillary mucinous neoplasm. 9. Additional findings as described above ACT 112: Negative or not required by law. Electronically signed by: Adolfo Mckenzie M.D. 06/21/2023 2:37 PM Code Status & VTE Plan Code Status full PG Care Time/CCT Total # of Minutes Spent Total Time Spent with Patient: Total time spent is greater than 50% in coordination of care (as documented) at patient's floor/unit and/or counseling patient: Coding Level of Care Code 46533 INT INP/OBS CARE 2/55MIN Diagnoses Urinary tract infection associated with nephrostomy catheter T83.512A; N39.0 Acute pyelonephritis N10 Presence of urostomy Z93.6 Acute kidney injury N17.9 Urothelial carcinoma of bladder C67.9 Calculus of proximal left ureter N20.1 Hypertension I10 Hypertension type: primary hypertension Hypercholesterolemia E78.00 Hypomagnesemia E83.42 Anemia D64.9 Anemia type: unspecified type DVT prophylaxis Z29.9 (7) Hypertension Hypertension type: primary hypertension Qualified Code(s): I10 - Essential (primary) hypertension (10) Anemia Anemia type: unspecified type Qualified Code(s): D64.9 - Anemia, unspecified
[2023-06-21] MEDS ORDERED: VANCOMYCIN HCL 1,250 MG in SODIUM CHLORIDE 0.9% 250 ML IV STA (17:13)
[2023-06-21] MEDS: SODIUM CHLORIDE 0.9% 1000ML 1,000 ML IV SCH (18:53)
--- NOTE | 2023-06-21 20:15 | Pharmacy Report ---
Pharmacy PK ABX Note - Date of Service June 21, 2023 - Assessment and Plan Assessment 62 year old M receiving Vancomycin for treatment of complicated UTI Pertinent microbiologic data includes: Cultures growing. Day # 1/? of antimicrobial therapy. Plan Vancomycin * Loading dose: 1250 mg IV x 1 * Maintenance dose: 500 mg IV every 12 hours * Regimen is predicted to achieve target AUC/ELEANOR of 400-600 mg/L.hr * Level to be ordered at a later date if vancomycin therapy continued. Pharmacy will continue to follow and will adjust dose/frequency as necessary. Thank you. Pharmacy has transitioned to AUC monitoring for vancomycin. AUC/ELEANOR is the preferred PK/PD target and is associated with decreased risk of nephrotoxicity compared to traditional trough targets.
[2023-06-21] MEDS ORDERED: ACETAMINOPHEN 325 MG TAB PO PRN (20:28)
[2023-06-21] MEDS ORDERED: FEXOFENADINE HCL 180 MG TAB PO PRN (20:28)
[2023-06-21] MEDS ORDERED: ONDANSETRON INJ 2 MG/ML 2 ML VIAL IV PRN (20:28)
[2023-06-21] MEDS ORDERED: HYDROCODONE/ACETAMOPHEN 5/325MG TAB PO PRN (20:28)
[2023-06-22] MEDS ORDERED: HEPARIN 100 UNIT/ML 5ML FLUSH FLUSH PRN (01:07)
[2023-06-22] MEDS: CEFEPIME 2,000 MG in SYRINGE 0 ML IV SCH ×2 (01:50→13:48)
[2023-06-22 03:32] LABS: A calco-baum cmplx NotReported Not Detected (NotDetected); Bact fragilis Not Reported Not Detected (NotDetected); C auris Not Reported Not Detected (NotDetected); CTX-M Resistant Gene Not Detected (NotDetected); Calbicans Not Reported Not Detected (NotDetected); Candida glabrata Not Reported Not Detected (NotDetected); Candida krusei Not Reported Not Detected (NotDetected); Cneoformans/gatti Not Reported Not Detected (NotDetected); Cparapsilosis Not Reported Not Detected (NotDetected); Ctropicalis Not Reported Not Detected (NotDetected); E cloacae compx Not Reported Not Detected (NotDetected); Efaecalis Not Reported Not Detected (NotDetected); Efaecium Not Reported Not Detected (NotDetected); Enterobacterales DETECTED (NotDetected); Enterobacterales Not Reported DETECTED (NotDetected); Escherichia coli Not Reported DETECTED (NotDetected); H influenzae Not Reported Not Detected (NotDetected); IMP Resistant Gene Not Detected (NotDetected); K aerogenes Not Reported Not Detected (NotDetected); KPC Resistant Gene Not Detected (NotDetected); Koxytoca Not Reported Not Detected (NotDetected); Kpneumoniae grp Not Reported Not Detected (NotDetected); Lmonocyt Not Reported Not Detected (NotDetected); N meningitidis Not Reported Not Detected (NotDetected); NDM Resistant Gene Not Detected (NotDetected); OXA 48 Like Resistant Gene Not Detected (NotDetected); P aeruginosa Not Reported Not Detected (NotDetected); Proteus spp Not Reported Not Detected (NotDetected); Salmonella spp Not Reported Not Detected (NotDetected); Smarcescens Not Reported Not Detected (NotDetected); Staph lugdunensis Not Reported Not Detected (NotDetected); Staph spp. Not Reported Not Detected (NotDetected); Staphaureus Not Reported Not Detected (NotDetected); Staphepi Not Reported Not Detected (NotDetected); Stenmaltophilia Not Reported Not Detected (NotDetected); Strep agal(GrpB) Not Reported Not Detected (NotDetected); Strep pneum Not Reported Not Detected (NotDetected); Strep pyog (GrpA) Not Reported Not Detected (NotDetected); Strep spp Not Reported Not Detected (NotDetected); VIM Resistant Gene Not Detected (NotDetected); mcr-1 Colistin Resistant Gene Not Detected (NotDetected)
[2023-06-22] MEDS: SODIUM CHLORIDE 0.9% 1000ML 1,000 ML IV SCH ×2 (05:09→15:39)
[2023-06-22] MEDS ORDERED: VANCOMYCIN HCL 500 MG in NSS 100mL IV SCH (06:00)
[2023-06-22 07:53] LABS: Hematocrit (blood only) 24.4 % (42.0-52.0); Hemoglobin 8.3 g/dl (14.0-18.0); Mean Corpuscular Hemoglobin 30.7 pg (25.0-34.0); Mean Corpuscular Volume 90.4 fL (80.0-100.0); Mean Platelet Volume 9.3 fL (9.4-12.4); Platelet Count 115 K/uL (130-400); RDW Coefficient of Variation 14.6 % (11.5-14.5); RDW Standard Deviation 47.8 fL (36.4-46.3); White Blood Count 8.07 K/ul (4.8-10.8)
[2023-06-22 08:07] LABS: BUN Creatinine Ratio 18.3 (10-20); Calcium 8.5 mg/dl (8.6-10.3); Creatinine Clr Calc Pharmacy 51.5 ml/min; Est GFR (African American) 60.5 ml/min; Est GFR (Non-African American) 52.2 ml/min; Magnesium 1.7 mg/dl (1.7-2.4); Potassium 3.6 mmol/L (3.5-5.1)
[2023-06-22] MEDS: ADVANCED PROBIOTIC 1250 MG CAPSULE PO SCH (08:15)
[2023-06-22] MEDS: ROSUVASTATIN CALCIUM 20 MG TAB PO SCH (08:16)
--- NOTE | 2023-06-22 15:57 | Hospitalist Progress Note ---
Date of Service June 22, 2023 Assessment & Plan (1) Bacteremia: Plan: 2nd to e.coli source - left-sided pyelonephritis/complicated UTI stop IV vanco cont cefepime cont IV fluids and supportive care f/u on all cultures in am (2) Urinary tract infection associated with nephrostomy catheter: Plan: At time of admission the ER physician contacted [facility] by phone. CT of the abd/pelvis was reviewed with urology there. As the tube is not obstructed urology at [facility] advised Rx of UTI; transfer to [facility] not needed at this time. He has bacteremia and left-sided pyelonephritis. Growing GNR in urine cx - most likely e.coli as this is growing in his blood cultures. Cont IV abx, fluids, and supportive care. Flush nephrostomy tube as needed. (3) Acute pyelonephritis: Plan: left-sided. Cont IV cefepime. Stop IV vancomycin. Cont IVF, pain meds, etc. (4) Presence of urostomy: Plan: Functioning well. Created 03/12/23. (5) Acute kidney injury: Plan: baseline Cr 1.1 today's Cr 1.4 BMP am (6) Urothelial carcinoma of bladder: Plan: s/p cystectomy 03/12/23 with ileal conduit/urostomy creation - [facility]. followed by chemotherapy. (7) Calculus of proximal left ureter: Plan: May 2023, s/p nephrostomy tube placement at [facility]. Nephrostomy tube remains. Was to have f/u with [facility] in the next week to discuss stone treatment. (8) Hypertension: Plan: Hold losartan due to mild MOLLY. (9) Hypercholesterolemia: Plan: Continue crestor. (10) Hypomagnesemia: Plan: s/p IV magnesium sulfate in ER. repeat level today wnl. (11) Anemia: Plan: 2nd to recent surgeries, blood draws, etc. Consider Fe studies. (12) DVT prophylaxis: Plan: lovenox 40mg daily. Plan patient's updated at bedside. can d/c tele move to med/surg decreased UOP from nephrostomy tube on left likely a combination of pyelonephritis and the likelihood that some urine is flowing down his left ureter to the ileal conduit creatinine remains stable Admission and Anticipated Discharge Date Admission Date: June 21, 2023 Subjective patient with scant L sided flank pain fatigue/tire eating ok though drinking fluids had fever this afternoon and simply felt poorly from such he continues with apparent decreased UOP from L nephrostomy tube today he had minimal output the tube was flushed, and 50cc of fluid returned (40cc of which was urine, 10cc was flush) urostomy, however, with copious UOP at bedside tele overnight wnl Review of Systems Review of Systems: gen - ongoing fever, fatigue cv - no chest pain pulm - no dyspnea GI - no abd pain or N/V Physical Exam Physical Exam: gen - looks sick but nontoxic, NAD HENT - MMM neck - no JVD heart - RRR, s1 s2, no murmur lungs - CTA b/l abd - soft NT ND BS+; urostomy present, stoma clean and healthy-appearing; clear yellow urine present in bag; nephrostomy tube left flank - attached to collection bag; urine is very dilute/cloudy ext - no edema, pulses 2+ b/l psych - a/o x 3 Results & Data Results & Data Vital Signs (Past 12 Hours) Vital Signs Temp Pulse Pulse Resp BP Pulse Ox O2 Del Method 06/22/23 15:17 39.3 C H 91 H 18 142/64 H 96 Room Air 06/22/23 15:54 38.3 C H 06/22/23 11:22 36.6 C 76 18 113/67 96 Room Air 06/22/23 07:45 37.0 C 81 18 106/64 95 Room Air 06/22/23 04:00 37.0 C 82 18 109/65 95 Room Air Laboratory Results Laboratory Results - last 24 hr 06/21/23 06/21/23 06/22/23 12:54 15:53 07:09 WBC 8.07 RBC 2.70 L Hgb 8.3 L Hct 24.4 L MCV 90.4 MCH 30.7 MCHC 34.0 RDW Std Deviation 47.8 H RDW Coeff of Mara 14.6 H Plt Count 115 L MPV 9.3 L Sodium Potassium Chloride Carbon Dioxide Anion Gap BUN Creatinine Est Cr Clr Drug Dosing Est GFR ( Amer) Est GFR (Non-Af Amer) BUN/Creatinine Ratio Glucose Calcium Magnesium Urine Color Yellow Urine Appearance Cloudy A Urine pH 6.0 Ur Specific [place] 1.017 Urine Protein Trace H Urine Glucose (UA) Negative Urine Ketones Negative Urine Blood Trace H Urine Nitrite Positive A Urine Bilirubin Negative Urine Urobilinogen Negative Ur Leukocyte Esterase 1+ H Urine WBC (Auto) >30 H Urine RBC (Auto) 0-4 U Hyaline Cast (Auto) 0 U Epithel Cells (Auto) 0-5 Urine Bacteria (Auto) 1+ H Enterobacterales (PCR) DETECTED A E. coli (PCR) DETECTED A mcr-1 Colistin Res Gene PCR Not Detected blaIMP Car res Gene PCR Not Detected KPC-Carbap Res Gene PCR Not Detected blaNDM Car Res Gene PCR Not Detected OXA-48 Carbapenem Resis Gene (PCR) Not Detected blaVIM Car Res Gene PCR Not Detected CTX-M Gene Resistance (PCR) Not Detected Bld Cult ID Panel PCR See PCR Comment 06/22/23 07:09 WBC RBC Hgb Hct MCV MCH MCHC RDW Std Deviation RDW Coeff of Mara Plt Count MPV Sodium 135 L Potassium 3.6 Chloride 106 Carbon Dioxide 23 Anion Gap 6 BUN 26 H Creatinine 1.42 H Est Cr Clr Drug Dosing 51.5 Est GFR ( Amer) 60.5 Est GFR (Non-Af Amer) 52.2 BUN/Creatinine Ratio 18.3 Glucose 167 H Calcium 8.5 L Magnesium 1.7 Urine Color Urine Appearance Urine pH Ur Specific [place] Urine Protein Urine Glucose (UA) Urine Ketones Urine Blood Urine Nitrite Urine Bilirubin Urine Urobilinogen Ur Leukocyte Esterase Urine WBC (Auto) Urine RBC (Auto) U Hyaline Cast (Auto) U Epithel Cells (Auto) Urine Bacteria (Auto) Enterobacterales (PCR) E. coli (PCR) mcr-1 Colistin Res Gene PCR blaIMP Car res Gene PCR KPC-Carbap Res Gene PCR blaNDM Car Res Gene PCR OXA-48 Carbapenem Resis Gene (PCR) blaVIM Car Res Gene PCR CTX-M Gene Resistance (PCR) Bld Cult ID Panel PCR Diagnostic Findings urine cx with GNR blood cx with GNR PG Care Time/CCT Total # of Minutes Spent Total Time Spent with Patient: Total time spent is greater than 50% in coordination of care (as documented) at patient's floor/unit and/or counseling patient: Coding Level of Care Code 30051 SUB INP/OBS CARE 2/35MIN Diagnoses Bacteremia R78.81 Urinary tract infection associated with nephrostomy catheter T83.512A; N39.0 Acute pyelonephritis N10 Presence of urostomy Z93.6 Acute kidney injury N17.9 Urothelial carcinoma of bladder C67.9 Calculus of proximal left ureter N20.1 Hypertension I10 Hypertension type: primary hypertension Hypercholesterolemia E78.00 Hypomagnesemia E83.42 Anemia D64.9 Anemia type: unspecified type DVT prophylaxis Z29.9 (8) Hypertension Hypertension type: primary hypertension Qualified Code(s): I10 - Essential (primary) hypertension (11) Anemia Anemia type: unspecified type Qualified Code(s): D64.9 - Anemia, unspecified
[2023-06-22] MEDS ORDERED: HEPARIN SOD 5,000 UNIT/0.5 ML VIAL SQ SCH (21:00)
[2023-06-23] MEDS: SODIUM CHLORIDE 0.9% 1000ML 1,000 ML IV SCH (01:18)
[2023-06-23] MEDS: CEFEPIME 2,000 MG in SYRINGE 0 ML IV SCH (02:09)
[2023-06-23 05:50] LABS: Hematocrit (blood only) 21.9 % (42.0-52.0); Hemoglobin 7.3 g/dl (14.0-18.0); Mean Corpuscular Hemoglobin 30.3 pg (25.0-34.0); Mean Corpuscular Hgb Conc 33.3 g/dL (32.0-36.0); Mean Corpuscular Volume 90.9 fL (80.0-100.0); Mean Platelet Volume 9.4 fL (9.4-12.4); Platelet Count 103 K/uL (130-400); Red Blood Count 2.41 M/uL (4.70-6.10); White Blood Count 4.33 K/ul (4.8-10.8)
[2023-06-23 06:10] LABS: BUN Creatinine Ratio 15.7 (10-20); Calcium 8.3 mg/dl (8.6-10.3); Creatinine Clr Calc Pharmacy 57.6 ml/min; Est GFR (African American) 69.2 ml/min; Est GFR (Non-African American) 59.7 ml/min; Potassium 3.7 mmol/L (3.5-5.1)
[2023-06-23] MEDS: ROSUVASTATIN CALCIUM 20 MG TAB PO SCH (09:34)
[2023-06-23] MEDS: ADVANCED PROBIOTIC 1250 MG CAPSULE PO SCH (09:34)
[2023-06-23] MEDS: CIPROFLOXACIN / D5W 400 MG/200 ML BAG IV SCH ×2 (12:18→22:56)
--- NOTE | 2023-06-23 14:55 | Hospitalist Progress Note ---
Date of Service June 23, 2023 Assessment & Plan (1) Bacteremia: Plan: 2nd to e.coli source - left-sided pyelonephritis/complicated UTI can stop cefepime - change to IV cipro stop IV fluids - he is drinking well cont supportive care f/u on final blood cultures in am can likely finish course with PO cipro at home to total 14 days of Rx (2) Urinary tract infection associated with nephrostomy catheter: Plan: At time of admission the ER physician contacted [facility] by phone. CT of the abd/pelvis was reviewed with urology there. As the tube is not obstructed urology at [place] advised Rx of UTI; transfer to [facility] not needed at this time. He has bacteremia and left-sided pyelonephritis. UTI/bacteremia/pyelo 2nd to e.coli. Flush nephrostomy tube as needed. (3) Acute pyelonephritis: Plan: left-sided. Stop IV cefepime. Change to IV cipro. f/u on final blood cx's tomorrow. Left flank pain improved. (4) Presence of urostomy: Plan: Functioning well. Created 03/12/23. (5) Acute kidney injury: Plan: baseline Cr 1.1 today's Cr 1.2 peak Cr 1.5 BMP am (6) Urothelial carcinoma of bladder: Plan: s/p cystectomy 03/12/23 with ileal conduit/urostomy creation - [facility]. followed by chemotherapy. (7) Calculus of proximal left ureter: Plan: May 2023, s/p nephrostomy tube placement at [facility]. Nephrostomy tube remains. Has f/u with [facility] Saturday in [place] to discuss stone management. (8) Hypertension: Plan: Cont to Hold losartan due to mild MOLLY. (9) Hypercholesterolemia: Plan: Continue crestor. (10) Hypomagnesemia: Plan: replaced resolved (11) Anemia: Plan: 2nd to recent surgeries, blood draws, etc. Fe studies c/w Fe def (ferritin high due to acute phase reactant, but transferrin sat is low). Start ferrous sulfate 325mg BID. Defer on IV venofer due to bacteremia. (12) DVT prophylaxis: Plan: lovenox 40mg daily. Plan patient's updated at bedside. improving nicely. home next 1-2 days. Admission and Anticipated Discharge Date Admission Date: June 21, 2023 Subjective no fever/chills eating fair-good left flank pain nearly resolved no nausea or emesis feeling better today but still tired/fatigued he reports he has f/u in [place] on Saturday early afternoon to discuss stone Rx with urology there at bedside Review of Systems Review of Systems: cv - no chest pain pulm - no dyspnea GI - no abd pain; loose stool but not savi diarrhea Physical Exam Physical Exam: gen - looks better today, NAD, pleasant HENT - MMM neck - no JVD heart - RRR, s1 s2, no murmur lungs - CTA b/l abd - soft NT ND BS+; urostomy present, stoma clean and healthy-appearing; clear yellow urine present in bag; nephrostomy tube left flank - attached to collection bag; urine is clear ext - no edema, pulses 2+ b/l psych - a/o x 3 skin - mild pallor Results & Data Results & Data Vital Signs (Past 12 Hours) Vital Signs Temp Pulse Resp BP BP Pulse Ox O2 Del Method 06/23/23 11:50 36.8 C 76 18 153/79 H 98 Room Air 06/23/23 08:15 36.9 C 67 18 116/71 97 Room Air 06/23/23 07:15 74 18 119/70 96 Room Air Laboratory Results Laboratory Results 06/23/23 06/23/23 06/23/23 05:19 05:19 08:10 WBC 4.33 L RBC 2.41 L Hgb 7.3 L Hct 21.9 L MCV 90.9 MCH 30.3 MCHC 33.3 RDW Std Deviation 47.0 H RDW Coeff of Mara 14.0 Plt Count 103 L MPV 9.4 Sodium 139 Potassium 3.7 Chloride 110 H Carbon Dioxide 25 Anion Gap 4 BUN 20 Creatinine 1.27 Est Cr Clr Drug Dosing 57.6 Est GFR ( Amer) 69.2 Est GFR (Non-Af Amer) 59.7 BUN/Creatinine Ratio 15.7 Glucose 127 H Calcium 8.3 L Iron TIBC Unsaturated IBC Transferrin % Sat Ferritin Stool Occult Bld Scrn Negative 06/23/23 06/23/23 15:13 15:13 WBC RBC Hgb 7.7 L Hct 23.0 L MCV MCH MCHC RDW Std Deviation RDW Coeff of Mara Plt Count MPV Sodium Potassium Chloride Carbon Dioxide Anion Gap BUN Creatinine Est Cr Clr Drug Dosing Est GFR ( Amer) Est GFR (Non-Af Amer) BUN/Creatinine Ratio Glucose Calcium Iron 16 L TIBC 212 L Unsaturated IBC 196 Transferrin % Sat 8 L Ferritin 726.9 H Stool Occult Bld Scrn PG Care Time/CCT Total # of Minutes Spent Total Time Spent with Patient: Total time spent is greater than 50% in coordination of care (as documented) at patient's floor/unit and/or counseling patient: Coding Level of Care Code 70883 SUB INP/OBS CARE 235MIN Diagnoses Bacteremia R78.81 Urinary tract infection associated with nephrostomy catheter T83.512A; N39.0 Acute pyelonephritis N10 Presence of urostomy Z93.6 Acute kidney injury N17.9 Urothelial carcinoma of bladder C67.9 Calculus of proximal left ureter N20.1 Hypertension I10 Hypertension type: primary hypertension Hypercholesterolemia E78.00 Hypomagnesemia E83.42 Anemia D64.9 Anemia type: unspecified type DVT prophylaxis Z29.9 (8) Hypertension Hypertension type: primary hypertension Qualified Code(s): I10 - Essential (primary) hypertension (11) Anemia Anemia type: unspecified type Qualified Code(s): D64.9 - Anemia, unspecified
[2023-06-23 15:38] LABS: Hemoglobin 7.7 g/dl (14.0-18.0)
[2023-06-23 16:17] LABS: Ferritin 726.9 ng/ml (8-388)
[2023-06-23] MEDS: FERROUS SULFATE 325 MG TAB PO SCH (18:06)
[2023-06-24 07:32] LABS: BUN Creatinine Ratio 15.5 (10-20); Creatinine Clr Calc Pharmacy 62.9 ml/min; Est GFR (African American) 77.2 ml/min; Est GFR (Non-African American) 66.7 ml/min; Potassium 3.7 mmol/L (3.5-5.1)
[2023-06-24] MEDS: ADVANCED PROBIOTIC 1250 MG CAPSULE PO SCH (08:20)
[2023-06-24] MEDS: FERROUS SULFATE 325 MG TAB PO SCH (08:20)
[2023-06-24] MEDS: ROSUVASTATIN CALCIUM 20 MG TAB PO SCH (08:20)
[2023-06-24 09:21] LABS: Hemoglobin 7.9 g/dl (14.0-18.0); Mean Corpuscular Hemoglobin 30.7 pg (25.0-34.0); Mean Corpuscular Hgb Conc 34.3 g/dL (32.0-36.0); Mean Corpuscular Volume 89.5 fL (80.0-100.0); Mean Platelet Volume 9.8 fL (9.4-12.4); Platelet Count 115 K/uL (130-400); RDW Coefficient of Variation 13.9 % (11.5-14.5); RDW Standard Deviation 45.3 fL (36.4-46.3); Red Blood Count 2.57 M/uL (4.70-6.10); White Blood Count 3.84 K/ul (4.8-10.8)
[2023-06-24] MEDS: CIPROFLOXACIN / D5W 400 MG/200 ML BAG IV SCH (10:42)
--- NOTE | 2023-06-24 12:46 | Discharge Summary ---
Date of Service June 24, 2023 Admission HPI Per Admitting Provider 62yo male with history of bladder cancer s/p cystectomy with ileal conduit/urostomy formation on 03/12/23 followed by chemotherapy, recent left- sided kidney stones s/p percutaneous nephrostomy tube placement at [facility], and hyperlipidemia presents with fever of 102.5 this am, intermittent back pain over the left kidney for a few days, and decreased nephrostomy tube output for about 4 days. The urine has had a foul odor as well. Eating/drinking normally. Denies rigors, URI symptoms, nausea, vomiting, or diarrhea. Denies abdominal pain. Urostomy has been functioning normally. Discharge Exam gen - looks better today, NAD, pleasant HENT - MMM neck - no JVD heart - RRR, s1 s2, no murmur lungs - CTA b/l abd - soft NT ND BS+; urostomy present, stoma clean and healthy-appearing; clear yellow urine present in bag; nephrostomy tube left flank - attached to collection bag; urine is clear ext - no edema, pulses 2+ b/l psych - a/o x 3 skin - mild pallor Discharge Data Allergies Allergy/AdvReac Type Severity Reaction Status Date / Time pollen extracts Allergy Intermediate ITCHY Verified 05/22/23 22:14 EYES, SNEEZING, CONGESTION Consultations 06/21/23 15:49 ED Decision to Admit Stat 06/21/23 16:31 ED Decision to Admit Stat Ordered Studies 06/21/23 13:18 CT abd pelvis wo con Stat Hospital Course (1) Bacteremia: 2nd to e.coli source - left-sided pyelonephritis/complicated UTI can stop cefepime - change to IV cipro stop IV fluids - he is drinking well cont supportive care f/u on final blood cultures in am can likely finish course with PO cipro at home to total 14 days of Rx (2) Urinary tract infection associated with nephrostomy catheter: At time of admission the ER physician contacted [facility] by phone. CT of the abd/pelvis was reviewed with urology there. As the tube is not obstructed urology at [facility] advised Rx of UTI; transfer to [facility] not needed at this time. He has bacteremia and left-sided pyelonephritis. UTI/bacteremia/pyelo 2nd to e.coli. Flush nephrostomy tube as needed. (3) Acute pyelonephritis: left-sided. Stop IV cefepime. Change to IV cipro. f/u on final blood cx's tomorrow. Left flank pain improved. (4) Presence of urostomy: Functioning well. Created 03/12/23. (5) Acute kidney injury: baseline Cr 1.1 today's Cr 1.2 peak Cr 1.5 BMP am (6) Urothelial carcinoma of bladder: s/p cystectomy 03/12/23 with ileal conduit/urostomy creation - [facility]. followed by chemotherapy. (7) Calculus of proximal left ureter: May 2023, s/p nephrostomy tube placement at [facility]. Nephrostomy tube remains. Has f/u with [facility] Saturday in [place] to discuss stone management. (8) Hypertension: Cont to Hold losartan due to mild MOLLY. (9) Hypercholesterolemia: Continue crestor. (10) Hypomagnesemia: replaced resolved (11) Anemia: 2nd to recent surgeries, blood draws, etc. Fe studies c/w Fe def (ferritin high due to acute phase reactant, but transferrin sat is low). Start ferrous sulfate 325mg BID. Defer on IV venofer due to bacteremia. (12) DVT prophylaxis: lovenox 40mg daily. Plan patient's updated at bedside. improving nicely. home next 1-2 days. Discharge Plan Discharge Items Patient Disposition: Home - Self-Care Reason For Visit: COMPLICATED UTI Discharge Diagnosis: 1. bacteremia/septicemia (blood stream infection) due to e.coli 2. left-sided pyelonephritis (kidney infection) due to e.coli 3. iron deficiency anemia 4. acute kidney injury - resolved; discharge creatinine level 1.1 5. nephrostomy tube on left 6. kidney stone on left Condition on Discharge: Good Activity: As commented below Activity Comment: gradually increase activities over the next week Exercise/Sports: Gradually increase as tolerated Non-emergency contact: Primary Care Provider and Urologist Call non-emergency contact if: you have any medication questions, your symptoms worsen, your pain is not controlled, your pain is worsening and you have a fever Follow-up/Referrals: Temo Aleman III, CRNP [Primary Care Provider] - 07/03/23 (please keep previously scheduled appointment with Mr Aleman ) Diet: Regular Addtl Attending Provider Instructions: Mr Vazquez, You were hospitalized for urinary tract infection/left-sided kidney infection ("pyelonephritis"). IV antibiotics were given to you along with IV fluids. Blood cultures from admission ultimately returned positive indicating blood stream infection. We call this "bacteremia." (see handout) Bacteremia and kidney infections are treated with 10-14 days of IV/oral antibiotics. You improved with the above measures and your fevers have resolved. Your urine output from your left kidney has also improved nicely. The low urine output was due to your infection. Your kidney function level - also known as "creatinine"- was high at 1.5 upon arrival. It is now down to normal at 1.1. Lastly, you have been anemic since November of this year. You have evidence of iron deficiency due to frequent blood draws, surgeries, etc. Your hemoglobin today is 7.9. Your stool did not show signs of any blood. Recommendations - 1. antibiotics - ciprofloxacin 500mg twice daily x 11 days, first dose PM of 06/24/23. Common side effect is diarrhea. 2. probiotics - take daily x 14 days. This may help prevent diarrhea from your antibiotics. You can also eat a serving or two of yogurt daily over the next couple of weeks. 3. for low iron please take - ferrous sulfate (found [id number]) 325mg twice daily with a glass of orange juice. Mr Aleman or Dr Ley could ultimately give you IV iron in the future as well. Know that oral iron causes constipation and can make your stools look dark. 4. focus on good hydration & nutrition during your recovery; drink plenty of fluids daily (water, Crystal Lite, etc - these are good for kidney stone prevention as well) 5. rest when needed over the next 1-2 weeks as you recover from your illness. Avoid strenuous activities for now. 6. have Dr Ley or Mr Aleman recheck your CBC blood count and BMP (creatinine, electrolytes, etc) in about 1 week. 7. hold your losartan for now. Follow-up - see separate section. Keep your appointment as scheduled at [facility] (06/25/23). Return to [facility] if - * you have fever over 101 degrees * you have worsening back pain/flank pain/abdominal pain * you develop severe diarrhea * you have any concerns about your nephrostomy tube or urostomy * any other concerns It was our pleasure to care for you! Dr Astudillo Pending Studies at Discharge: No Stand-Alone Forms: My [facility], Smoking Cessation Medications and DC Order Prescriptions: New ferrous sulfate 325 mg (65 mg iron) Tablet,Delayed Release (Dr/Ec) 325 mg PO BID Qty: 60 2RF Rx Instructions: purchase [id number]; take with glass of orange juice. Advanced Probiotic 625 mg (10 billion cell) Capsule 2 cap PO DAILY 14 Days Qty: 28 0RF ciprofloxacin HCl [Cipro] 500 mg tablet 500 mg PO BID 11 Days Qty: 22 0RF Rx Instructions: first dose PM of 06/24/23 Continued rosuvastatin 20 mg tablet 20 mg PO QAM Qty: 90 3RF fexofenadine 180 mg Tablet 180 mg PO DAILY PRN (Reason: SEASONAL ALLERGIES) sodium chloride 0.9 % (flush) [BD PosiFlush Normal Saline 0.9] Syringe See Rx Instructions .ROUTE .COMPLEX Rx Instructions: as directed Held losartan 25 mg tablet 25 mg PO DAILY Hold Instructions: Resume on 05/30/23. Discharge Orders: Discharge Order (Routine); Ordered 06/24/23 Ordered By: Geovanni May/Other Patient Handouts: ED Bacteremia, Suspected (Adult) Admission Data Admit Date/Time: 06/21/23 17:07 Attending Provider: Geovanni Astudillo Admit Provider: Geovanni Astudillo Primary Care Provider: Temo Aleman III Other Providers: Marcellus Taylor ; Geovanni Astudillo Other Interventions: Discharge Summary Assessment (RN) Last Done: 06/24/23 11:22 Coding Diagnoses Bacteremia R78.81 Urinary tract infection associated with nephrostomy catheter T83.512A; N39.0 Acute pyelonephritis N10 Presence of urostomy Z93.6 Acute kidney injury N17.9 Urothelial carcinoma of bladder C67.9 Calculus of proximal left ureter N20.1 Hypertension I10 Hypertension type: primary hypertension Hypercholesterolemia E78.00 Hypomagnesemia E83.42 Anemia D64.9 Anemia type: unspecified type DVT prophylaxis Z29.9
--- NOTE | 2023-06-24 19:27 | Electrocardiogram Report ---
Test Reason : Blood Pressure : / mmHG Vent. Rate : 084 BPM Atrial Rate : 084 BPM P-R Int : 136 ms QRS Dur : 072 ms QT Int : 350 ms P-R-T Axes : -14 029 050 degrees QTc Int : 413 ms Normal sinus rhythm Normal ECG When compared with ECG of 22-MAY-2023 22:15, Nonspecific T wave abnormality, improved in Anterior leads Confirmed by Dragan Goddard ([id number]) on 06/24/2023 7:27:23 PM Referred By: REFERRED SELF Confirmed By:Mario Goddard
[2023-06-24] MEDS ORDERED: CIPROFLOXACIN 500 MG TAB PO SCH (21:00)
== END 2023-06-24 14:21 | disposition home or self-care (01) | DRG 699 ==
LOC: ED 12:28 → 2N 17:07